=== PATIENT | male | born 1985 ===

== ENCOUNTER 2021-07-09 17:59 | Emergency (ER) | payer MEDICARE, MEDICAID, SELFPAY ==
[2021-07-09 18:46] VITALS: BP 113/51; PULSE 70; RESP 16; TEMP 36.6; O2SAT 99; BMI 38.0
--- NOTE | 2021-07-09 19:18 | ED_ITS ---
HPI - Skin/Abscess/Foreign Bdy General Chief complaint: Skin/Abscess/Foreign Body Stated complaint: abcess? Time Seen by Provider: 07/09/21 19:18 Source: patient Mode of arrival: ambulatory Limitations: language barrier History of Present Illness HPI narrative: 36-year-old male presents for abscess in his anterior waistline that he has had for months, but now is growing larger. Patient says for months he has been squeezing it and expressing pus. Patient states it has recently gotten very painful. No fevers, no vomiting, no nausea. States he often has abscesses. Patient is up-to-date on his tetanus. Patient has Sulfa allergy. MD complaint: abscess/boil Onset (ago): month(s) Tetanus up to date: yes Severity: moderate Severity scale (1-10): 6 Quality: aching Pain Consistency: constant Relieving factors: none Exacerbating factors: none Associated symptoms: denies other symptoms Related Data Previous Rx's Medication Instructions Recorded doxycycline hyclate 100 mg capsule 100 mg PO BID 10 Days #20 cap 07/09/21 Allergies Allergy/AdvReac Type Severity Reaction Status Date / Time Sulfa (Sulfonamide Allergy Severe SWELLING, Unverified 08/04/20 17:15 Antibiotics) skin [SULFA (SULFONAMIDE blisters ANTIBIOTICS)] Review of Systems Constitutional: Constitutional: Denies body ache(s), Denies chills, Denies fever(s), Denies headache(s) and Denies malaise ENT: Denies otalgia, Denies headache(s) and Denies sore throat Cardiovascular: Cardiovascular: Denies chest pain and Denies dyspnea Respiratory: Respiratory: Denies chest congestion, Denies cough and Denies dyspnea Gastrointestinal: Gastrointestinal: Denies abdominal pain, Denies constipation, Denies diarrhea and Denies vomiting Genitourinary: Genitourinary: Reports no additional male genitourinary complaints Musculoskeletal: Musculoskeletal: Reports no additional musculoskeletal complaints, Denies numbness and Denies tingling Integumentary/Breasts: Comments: Have some posterior anterior waistline Neurologic: Denies headache(s), Denies focal weakness, Denies numbness, Denies tingling and Denies paresthesias PMFSH Past Medical History Medical History Anxiety Depression Social History Social History Advance Directives: No Physical Exam Vital Signs: Vital Signs: Last Vital Signs Temp 98 F 07/09/21 18:46 Pulse 70 07/09/21 18:46 Resp 16 07/09/21 18:46 BP 113/51 L 07/09/21 18:46 Pulse Ox 99 07/09/21 18:46 Body Mass Index 38.0 Const: General: cooperative, no acute distress, well developed, alert and awake Nutritional Appearance: well nourished Orientation/consciousness: patient oriented x3 Limitations: no limitations HENMT: Head: Yes normal to inspection, Yes normocephalic and Yes atraumatic Ears: hearing grossly normal bilaterally and external ears normal General nose exam: Normal external nose present Face and sinus: Yes normal facial exam Mouth: Normal oral and palatal mucosa present Throat: Yes posterior oropharynx normal Eyes: Conjunctivae: conjunctivae normal Pupils: Equal, round and reactive pupils present EOM: EOMs intact bilaterally Neck: Neck: Yes full ROM, Yes no lymphadenopathy and Yes supple Resp: Effort & Inspection: normal respiratory effort and able to speak in complete sentences Auscultation: clear to auscultation bilaterally, no crackles, no rales, no rhonchi and no wheezes Cardio: Rate: regular rate Rhythm: regular rhythm Heart sounds: S1 normal heart sound present and S2 normal heart sound present GI: Inspection: Yes normal to inspection Palpation (GI): Soft to palpation, nontender, no guarding and not rigid Percussion: Yes normal to percussion Auscultation: normal bowel sounds Skin: Other: 3 cm abscess with fluctuance and surrounding erythema on patient's mid line belt region. Drained abscess, did incision and drainage, packed abscess, place patient on doxycycline. Gave return precautions, aspiration to return in 2 days for follow-up care. Neuro: General: patient oriented x3, tone normal and moves all extremities Cranial nerves: Yes Equal, round and reactive pupils present Extrem: General: Yes normal to inspection and Yes full ROM Psych: Appearance: grossly normal Affect: normal affect Attitude: cooperative Thought process: Normal thought process present Procedures Abscess I/D Site: other Local Anesthetic: lidocaine 1% Amount of anesthesia used (mL): 2 Technique: incised with blade Amount of fluid expressed (mL): 5 Sent for culture/gram staining?: No Irrigation: No Packing used?: iodoform Discharge Plan Discharge Clinical Impression: Abscess of skin or subcutaneous tissue Qualifiers: Site of cutaneous abscess: other site Qualified Code(s): L02.818 - Cutaneous abscess of other sites Patient Disposition: Home, Self-Care Instructions: Abscess (ED) Additional Instructions: Please return to the emergency room in 2 days to have your abscess checked. Please leave the dressing on and keep it clean and dry until then. If there is fevers, warmth, worsening pain, please return to the Emergency Room sooner. Please fill your prescription for doxycycline that I sent to your pharmacy and start it tonight. Please alternate Tylenol and ibuprofen for pain. Take 1 or the other every 4 hours. For example, at midnight take 1000 mg of Tylenol, then at 4:00 a.m. take 800 mg ibuprofen, at 8:00 a.m. take 1000 mg of Tylenol, at noon take 800 mg of ibuprofen, at 4:00 p.m. take 1000 mg of Tylenol, at 8:00 p.m. take 800 mg of ibuprofen. Do not exceed 3000 mg of Tylenol in 24 hours. This method is proven to be as effective as an opioid for pain control. Regrese a la david de emergencias en 2 d?as para que le revisen el absceso. Por favor, deje el ap?sito y mant?ngalo limpio y seco hasta entonces. Si tiene fiebre, calor o dolor que empeora, regrese a la david de emergencias antes. Surta churchill receta de doxiciclina que le envi? a churchill farmacia y comience esta noche. Alterne Tylenol e ibuprofeno para el dolor. Nael 1 o el otro cada 4 horas. Por ejemplo, a la medianoche tome 1000 mg de Tylenol, luego a las 4:00 a.m. tome 800 mg de ibuprofeno, a las 8:00 a.m. tome 1000 mg de Tylenol, al mediod?a tome 800 mg de ibuprofeno, a las 4:00 p.m. nael 1000 mg de Tylenol, a las 8:00 p.m. tome 800 mg de ibuprofeno. No exceda los 3000 mg de Tylenol en 24 horas. Se chavira demostrado que connie m?todo es hernandez eficaz lyndsey un opioide para el control del dolor. Prescriptions: New doxycycline hyclate 100 mg capsule 100 mg PO BID 10 Days Qty: 20 RF: 0 Interventions: ED Discharge Assessment Last Done: 07/09/21 20:18 Discharge Date/Time: 07/09/21 20:19 Print Language: Mauritanian
[2021-07-09] MEDS: Lidocaine HCl 1 % 20 ML VIAL 10 ML INFILTRATI (20:15)
== END 2021-07-09 20:19 | disposition home or self-care (01) ==
PROVIDERS: Emergency Provider Internal Medicine
DX: L02.818 Cutaneous abscess of other sites (principal); Z79.899 Other long term (current) drug therapy
CPT/HCPCS: 10060; 99283

== ENCOUNTER 2021-07-11 09:39 | Emergency (ER) | payer MEDICARE, MEDICAID, SELFPAY ==
[2021-07-11 11:48] VITALS: BP 108/72; PULSE 64; RESP 16; TEMP 36.7; O2SAT 96; BMI 34.9
--- NOTE | 2021-07-11 13:48 | ED.WOUNDLAC ---
HPI - Wound/Laceration General Chief Complaint: Wound/Laceration Stated Complaint: wound check Time Seen by Provider: 07/11/21 13:43 History of Present Illness HPI narrative: Improved denies any fever chills Complaint feels ominal abscess, patient without Related Data Previous Rx's Medication Instructions Recorded doxycycline hyclate 100 mg capsule 100 mg PO BID 10 Days #20 cap 07/09/21 Allergies Allergy/AdvReac Type Severity Reaction Status Date / Time Sulfa (Sulfonamide Allergy Severe SWELLING, Unverified 08/04/20 17:15 Antibiotics) skin [SULFA (SULFONAMIDE blisters ANTIBIOTICS)] Review of Systems Review of Systems: Negatives are no fever no chills no dizziness no weakness no headache no neck pain no chest pain no abdominal pain no nausea or vomiting Yes all other systems are reviewed and are negative [facility] Past Medical History Medical History Anxiety Depression Social History Social History Advance Directives: Yes Advance Directives Information Provided: Yes Advance Directives on File: No Physical Exam Vital Signs: Vital Signs: Last Vital Signs Temp 98.1 F 07/11/21 11:48 Pulse 64 07/11/21 11:48 Resp 16 07/11/21 11:48 BP 108/72 07/11/21 11:48 Pulse Ox 96 07/11/21 11:48 Body Mass Index 34.9 Course Course Course Narrative: Patient status post I and D of abdominal abscess, packing was removed, no evidence of surrounding infection, he is very improved there was no fluctuance and patient is discharged Discharge Plan Discharge Clinical Impression: Wound check, abscess Patient Disposition: Home, Self-Care Additional Instructions: The wound looks very improved and no further treatment is needed It may continue draining so keep covered with a dressing Return any concerns Prescriptions: No Action doxycycline hyclate 100 mg capsule 100 mg PO BID 10 Days Qty: 20 RF: 0 Interventions: ED Discharge Assessment Last Done: 07/11/21 13:54 Discharge Date/Time: 07/11/21 15:32
== END 2021-07-11 15:32 | disposition home or self-care (01) ==
PROVIDERS: Emergency Provider Emergency Medicine
DX: Z48.01 Encounter for change or removal of surgical wound dressing (principal); L02.818 Cutaneous abscess of other sites
CPT/HCPCS: 99283

== ENCOUNTER 2021-09-08 18:43 | Emergency (ER) | payer MEDICARE, MEDICAID, SELFPAY ==
--- NOTE | ~2021-09-08 | XR_ITS ---
EXAMINATION: XR CHEST CLINICAL INFORMATION: Chest pain COMPARISON: Chest x-ray on 05/23/2019 TECHNIQUE: Frontal view of the chest was obtained. FINDINGS: The cardiac silhouette is normal. There is mild diffuse bronchial wall thickening. There are no areas of consolidation. There are no pleural effusions or pneumothoraces. The bones and soft tissues are unremarkable for the patient's age. XR/XR chest 1V IMPRESSION: Bronchial wall thickening may be infectious and/or inflammatory in etiology.
--- NOTE | 2021-09-08 18:58 | ECG_ITS ---
Test Reason : cp Blood Pressure : / mmHG Vent. Rate : 068 BPM Atrial Rate : 068 BPM P-R Int : 122 ms QRS Dur : 088 ms QT Int : 376 ms P-R-T Axes : 058 -09 031 degrees QTc Int : 399 ms Normal sinus rhythm Normal ECG No significant changes seen Referred By: Generic ED Physician Electronically Signed By:JOSE LUIS ELLIS MD
[2021-09-08 19:01] VITALS: BP 117/79; PULSE 75; RESP 20; TEMP 37.3; O2SAT 97; BMI 39.5
[2021-09-08 19:42] LABS: MANUAL DIFF FLAG NO
[2021-09-08 19:46] LABS: Basophils Absolute Auto 0.1 X10*3/uL (0.0-0.2); Basophils Percent Auto 0.3 % (0-2); Eosinophils Absolute Auto 0.2 X10*3/uL (0.0-0.4); Eosinophils Percent Auto 1.6 % (0-4); Hematocrit 49.5 % (42-52); Hemoglobin 16.6 g/dl (14.0-18.0); Imm Gran Abs Auto 0.04 X10*3/uL (0.00-0.03); Imm Gran Pct Auto 0.3 % (0.0-0.4); Lymphocytes Absolute Auto 2.9 X10*3/uL (1.2-4.9); Lymphocytes Percent Auto 19.6 % (20-40); Mean Corpuscular HGB Conc 33.5 g/dl (31.0-36.0); Mean Corpuscular Hemoglobin 29.3 pg (27.0-33.0); Mean Corpuscular Volume 87.3 fL (80-98); Mean Platelet Volume 10.5 fL (9.4-12.4); Monocytes Absolute Auto 0.7 X10*3/uL (0.1-1.2); Monocytes Percent Auto 4.9 % (2-11); Neutrophils Absolute Auto 10.7 X10*3/uL (2.0-8.3); Neutrophils Percent Auto 73.3 % (45-73); Platelet Count 239 X10*3/uL (160-400); Red Blood Count 5.67 X10*6/uL (4.60-5.80); Red Cell Distribution Width 13.9 % (11.0-16.0); White Blood Count 14.6 X10*3/uL (4.8-10.8)
[2021-09-08 20:01] LABS: Anion Gap 12 (12-20); Blood Urea Nitrogen 8 mg/dL (9-16); Calcium 8.8 mg/dL (8.4-10.2); Carbon Dioxide 25 mmol/L (22-29); Chloride 108 mmol/L (96-108); Creatinine Clr Calc Pharmacy 121.3; Estimated Glomerular Filt Rate > 60; Glucose Random 154 mg/dL (60-115); Potassium 3.9 mmol/L (3.3-5.1); Sodium 141 mmol/L (135-145)
[2021-09-08 20:08] LABS: Troponin-I High Sensitivity < 3.5 ng/L (<3.5-35.0)
--- NOTE | 2021-09-08 21:32 | ED_ITS ---
HPI - Chest Pain General Chief Complaint: Chest Pain Stated Complaint: Chest Pain Time Seen by Provider: 09/08/21 21:06 Source: patient Mode of arrival: ambulatory Limitations: no limitations History of Present Illness HPI narrative: Patient comes emergency room complaining sharp chest pain substernal. Patient states it has been present for 2 days, sometimes has mild shortness of breath intermittently. At this time patient still feels some pressure in the chest. Note, patient mentioned that 2 days ago he got drunk, had multiple episodes of vomiting, patient is grieving the recent of his grandmother. Related Data Previous Rx's Medication Instructions Recorded doxycycline hyclate 100 mg capsule 100 mg PO BID 10 Days #20 cap 07/09/21 Allergies Allergy/AdvReac Type Severity Reaction Status Date / Time Sulfa (Sulfonamide Allergy Severe SWELLING, Unverified 09/08/21 19:07 Antibiotics) skin [SULFA (SULFONAMIDE blisters ANTIBIOTICS)] Review of Systems Review of Systems: Constitutional : No Weight loss, No Fever, No Chills, No Night Sweats, No Fatigue, No Malaise ENT/Mouth : No Hearing loss, No Ear Pain, No Nasal Congestion, No Sinus Pain, No Hoarseness, No sore throat, No Rhinorrhea, No Swallowing Difficulty Eyes: No Eye Pain, No Swelling, No Redness, No Foreign Body, No Discharge, No Vision Changes Cardiovascular : Complaining of 2 days of chest pressure , No Dyspnea on Exertion, No Orthopnea, No Edema, No Palpitations Respiratory : Dry Cough, No Sputum, No Wheezing, No Smoke Exposure, intermittent shortness of breath, not present at this time Gastrointestinal : No Nausea, No Vomiting, No Diarrhea, No Constipation, No abdominal Pain, No Hematochezia, No Melena Genitourinary : no irregular bleeding, No Dysuria, No Urinary Frequency, No Hematuria, No Urinary Incontinence, No Urgency, No Flank Pain, No Urinary Flow Changes, No Hesitancy Musculoskeletal : No joint pain, No Myalgias, No Joint Swelling Skin : No Skin Lesions, No rash Neuro : No Weakness, No Numbness, No Paresthesias, No Loss of Consciousness, No Dizziness, No Headache Psych : No Anxiety/Panic, No Depression, No SI/HI/AH/VH, No Social Issues, Heme/Lymph: No Bruising, No Bleeding,No Lymphadenopathy Endocrine : No Polyuria, No Polydipsia, No Temperature Intolerance PMF Past Medical History Medical History Anxiety Depression Social History Social History Advance Directives: No Advance Directives Information Provided: No Physical Exam Vital Signs: Vital Signs: Last Vital Signs Temp 98.7 F 09/08/21 22:05 Pulse 55 09/08/21 22:05 Resp 18 09/08/21 22:05 BP 105/59 L 09/08/21 22:05 Pulse Ox 97 09/08/21 22:05 Body Mass Index 39.5 Const: Other: Appearance: Alert. Oriented X3. No acute distress. Eyes: Pupils equal, round and reactive to light. ENT: Pharynx normal. Neck: Normal inspection. Neck supple. No lymph nodes noted. No crepitus CVS: Normal heart rate and rhythm. Pulses normal. Normal S1 and S2 Respiratory: No respiratory distress. Breath sounds normal. No Wheezing. No rales Abdomen: Soft and nontender. No rigidity. No distention. Skin: Skin warm and dry. Normal skin color. Normal skin turgor. Extremities: No lower extremity edema. No lower extremity edema. No Lacerations. No Rash Neuro: Oriented X 3. No motor deficit. No sensory deficit. Moving all extermities. No slurred speech. Course Course Course Narrative: I discussed the labs and imaging with the patient, patient's chest pressure/breathing discomfort is likely secondary to bronchitis, patient has been coughing, chest x-ray shows bronchial wall thickening. Patient has not had any fever, no chills, patient is not septic. At this time, antibiotics are not recommended. Pt has also hx of anxiety, likely contributing to the chest pain. MDM - Chest Pain Lab Data Result diagrams: 09/08/21 19:38 09/08/21 19:38 Labs: Lab Results 09/08/21 09/08/21 09/08/21 Range/Units 19:37 19:38 19:38 WBC 14.6 H (4.8-10.8) X10*3/uL RBC 5.67 (4.60-5.80) X10*6/uL Hgb 16.6 (14.0-18.0) g/dl Hct 49.5 (42-52) % MCV 87.3 (80-98) fL MCH 29.3 (27.0-33.0) pg MCHC 33.5 (31.0-36.0) g/dl RDW 13.9 (11.0-16.0) % Plt Count 239 (160-400) X10*3/uL MPV 10.5 (9.4-12.4) fL Immature Gran % (Auto) 0.3 (0.0-0.4) % Neut % (Auto) 73.3 H (45-73) % Lymph % (Auto) 19.6 L (20-40) % [place] % (Auto) 4.9 (2-11) % Eos % (Auto) 1.6 (0-4) % Baso % (Auto) 0.3 (0-2) % Lymph # (Auto) 2.9 (1.2-4.9) X10*3/uL [place] # (Auto) 0.7 (0.1-1.2) X10*3/uL Eos # (Auto) 0.2 (0.0-0.4) X10*3/uL Baso # (Auto) 0.1 (0.0-0.2) X10*3/uL Abs Immat Gran (auto) 0.04 H (0.00-0.03) X10*3/uL Absolute Neuts (auto) 10.7 H (2.0-8.3) X10*3/uL Absolute Nucleated RBC 0.000 (0.0-0.012) X10*3/uL Nucleated RBC % (auto) 0.0 (0.0-0.2) /100WBC D-Dimer NG/ML Sodium 141 (135-145) mmol/L Potassium 3.9 (3.3-5.1) mmol/L Chloride 108 (96-108) mmol/L Carbon Dioxide 25 (22-29) mmol/L Anion Gap 12 (12-20) BUN 8 L (9-16) mg/dL Creatinine 1.06 (0.5-1.4) mg/dL Estim Creat Clear Calc 121.3 Estimated GFR > 60 Random Glucose 154 H (60-115) mg/dL Calcium 8.8 (8.4-10.2) mg/dL Troponin I High Sens < 3.5 (<3.5-35.0) ng/L 09/08/21 Range/Units 21:34 WBC (4.8-10.8) X10*3/uL RBC (4.60-5.80) X10*6/uL Hgb (14.0-18.0) g/dl Hct (42-52) % MCV (80-98) fL MCH (27.0-33.0) pg MCHC (31.0-36.0) g/dl RDW (11.0-16.0) % Plt Count (160-400) X10*3/uL MPV (9.4-12.4) fL Immature Gran % (Auto) (0.0-0.4) % Neut % (Auto) (45-73) % Lymph % (Auto) (20-40) % [place] % (Auto) (2-11) % Eos % (Auto) (0-4) % Baso % (Auto) (0-2) % Lymph # (Auto) (1.2-4.9) X10*3/uL [place] # (Auto) (0.1-1.2) X10*3/uL Eos # (Auto) (0.0-0.4) X10*3/uL Baso # (Auto) (0.0-0.2) X10*3/uL Abs Immat Gran (auto) (0.00-0.03) X10*3/uL Absolute Neuts (auto) (2.0-8.3) X10*3/uL Absolute Nucleated RBC (0.0-0.012) X10*3/uL Nucleated RBC % (auto) (0.0-0.2) /100WBC D-Dimer < 200 NG/ML Sodium (135-145) mmol/L Potassium (3.3-5.1) mmol/L Chloride (96-108) mmol/L Carbon Dioxide (22-29) mmol/L Anion Gap (12-20) BUN (9-16) mg/dL Creatinine (0.5-1.4) mg/dL Estim Creat Clear Calc Estimated GFR Random Glucose (60-115) mg/dL Calcium (8.4-10.2) mg/dL Troponin I High Sens (<3.5-35.0) ng/L Imaging Data Chest x-ray: Radiologist's impression: The cardiac silhouette is normal. There is mild diffuse bronchial wall thickening. There are no areas of consolidation. There are no pleural effusions or pneumothoraces. The bones and soft tissues are unremarkable for the patient's age. XR/XR chest 1V IMPRESSION: Bronchial wall thickening may be infectious and/or inflammatory in etiology. ECG Data ECG #1: Attestation: I personally reviewed and interpreted this ECG as follows: (Heart rate 68, sinus rhythm, no ST segment depression or elevation, nonspecific T-wave inversion in lead 3, QTC 399) Discharge Plan Discharge Clinical Impression: Bronchitis, Atypical chest pain Patient Disposition: Home, Self-Care Instructions: Acute Bronchitis (ED) Additional Instructions: Please follow-up with your primary care physician tomorrow. If you have any worsening or new symptoms, please return to the emergency room or call 911 Prescriptions: No Action doxycycline hyclate 100 mg capsule 100 mg PO BID 10 Days Qty: 20 RF: 0
--- NOTE | 2021-09-08 21:42 | PC.NURSE ---
labs drawn to lab.
[2021-09-08 21:55] LABS: D Dimer < 200 NG/ML
[2021-09-08 22:05] VITALS: BP 105/59; PULSE 55; RESP 18; TEMP 37.1; O2SAT 97
[2021-09-08] MEDS: Aspirin Enteric Coated 325 MG TABLET.DR PO (22:21)
== END 2021-09-08 22:27 | disposition home or self-care (01) ==
PROVIDERS: Emergency Provider Emergency Medicine
DX: J40 Bronchitis, not specified as acute or chronic (principal); R07.89 Other chest pain; Z79.899 Other long term (current) drug therapy
CPT/HCPCS: 36415; 71045; 80048; 84484; 85025; 85379; 93005; 99284

== ENCOUNTER 2022-05-05 17:48 | Emergency (ER) | payer MEDICARE, MEDICAID, SELFPAY ==
--- NOTE | ~2022-05-05 | XR_ITS ---
EXAMINATION: XR CHEST CLINICAL INFORMATION: Fever. COMPARISON: Chest radiograph dated from 09/08/2021. TECHNIQUE: AP view of the chest was obtained. FINDINGS: Normal appearance of the cardiomediastinal silhouette. No focal airspace opacity, pleural effusion or pneumothorax. No acute osseous abnormalities. XR/XR chest 1V IMPRESSION: No acute cardiopulmonary findings.
[2022-05-05 18:40] VITALS: BP 122/57; PULSE 105; RESP 20; TEMP 39.3; O2SAT 99; BMI 34.9
--- NOTE | 2022-05-05 19:19 | ED_ITS ---
HPI - General Adult General Chief complaint: General Medical Stated complaint: headaches/dizzines/fever Time Seen by Provider: 05/05/22 19:12 Source: patient Mode of arrival: ambulatory Limitations: no limitations History of Present Illness HPI narrative: Patient comes to the emergency room complaining of nausea, no vomiting, complaining of diffuse body aches, fever and chills. Patient states that today in the morning he was feeling normal. Around noon, he had a sandwich, 6 hours later he started having nausea, generalized malaise, chills. Patient took a shower hoping that his symptoms would resolve. Patient started having more chills. Patient did not take any Tylenol ibuprofen prior to arrival. Patient decided to come to the emergency room. Patient states that 3 weeks ago he was diagnosed with COVID-19. Patient did not get immunized for influenza last year Related Data Previous Rx's Medication Instructions Recorded doxycycline hyclate 100 mg capsule 100 mg PO BID 10 days #20 caps 07/09/21 acetaminophen 650 mg 650 mg PO Q8H PRN fever or pain 05/05/22 tablet,extended release #20 tabs ibuprofen 600 mg tablet 600 mg PO QID PRN fever or pain 05/05/22 #20 tabs Allergies Allergy/AdvReac Type Severity Reaction Status Date / Time Sulfa (Sulfonamide Allergy Severe SWELLING, Verified 05/05/22 18:42 Antibiotics) skin [SULFA (SULFONAMIDE blisters ANTIBIOTICS)] Review of Systems Review of Systems: Constitutional : No Weight loss, complaining of fever and Chills, complaining of generalized malaise, diffuse body aches ENT/Mouth : No Hearing loss, No Ear Pain, No Nasal Congestion, No Sinus Pain, No Hoarseness, No sore throat, No Rhinorrhea, No Swallowing Difficulty Eyes: No Eye Pain, No Swelling, No Redness, No Foreign Body, No Discharge, No Vision Changes Cardiovascular : No Chest Pain, No SOB, No Dyspnea on Exertion, No Orthopnea, No Edema, No Palpitations Respiratory : No Cough, No Sputum, No Wheezing, No Smoke Exposure, No Dyspnea Gastrointestinal : Complaining of Nausea, No Vomiting, No Diarrhea, No Constipation, No abdominal Pain, No Hematochezia, No Melena Genitourinary : no irregular bleeding, No Dysuria, No Urinary Frequency, No Hematuria, No Urinary Incontinence, No Urgency, No Flank Pain, No Urinary Flow Changes, No Hesitancy Musculoskeletal : No joint pain, No Myalgias, No Joint Swelling Skin : No Skin Lesions, No rash Neuro : No Weakness, No Numbness, No Paresthesias, No Loss of Consciousness, No Dizziness, No Headache Psych : No Anxiety/Panic, No Depression, No SI/HI/AH/VH, No Social Issues, Heme/Lymph: No Bruising, No Bleeding,No Lymphadenopathy Endocrine : No Polyuria, No Polydipsia, No Temperature Intolerance [facility] Past Medical History Medical History Anxiety Depression Social History Social History Advance Directives: No Advance Directives Information Provided: No Physical Exam ED Vital Signs: Vital Signs - 24 hr 05/05/22 18:40 05/05/22 20:35 Temperature 102.7 F H 101.4 F H Pulse Rate 105 H Respiratory Rate 20 Blood Pressure 122/57 L Pulse Oximetry 99 Oxygen Delivery Method Room Air BMI result Body Mass Index 34.9 Const Other: Appearance: Alert. Oriented X3. No acute distress. Eyes: Pupils equal, round and reactive to light. ENT: Pharynx normal. Neck: Normal inspection. Neck supple. No lymph nodes noted. No crepitus CVS: Tachycardic approximately 110 per minute and rhythm. Pulses normal. Normal S1 and S2 Respiratory: No respiratory distress. Breath sounds normal. No Wheezing. No rales Abdomen: Soft and nontender. No rigidity. No distention. Skin: Skin very warm to touch, dry. Normal skin color. Normal skin turgor. Extremities: No lower extremity edema. No Lacerations. No Rash Neuro: Oriented X 3. No motor deficit. No sensory deficit. Moving all extremities. No slurred speech. CN 2 through 12 grossly intact Psych: calm, cooperative, normal affect Course Course Course Narrative: Patient is getting fluids, labs pending, patient receiving IV fluids, ibuprofen, Tylenol, Zofran Chest x-ray negative, COVID and flu tests pending Patient tested negative for COVID and influenza, urinalysis negative, chest x- ray within normal limits. Patient likely has a viral infection. Patient has not vomited or had any diarrhea in the emergency room. Medical Decision Making Lab Data Result diagrams: 05/05/22 19:38 05/05/22 19:38 Labs: Lab Results 05/05/22 05/05/22 05/05/22 Range/Units 19:38 19:38 19:38 WBC 17.4 H (4.8-10.8) X10*3/uL RBC 5.63 (4.60-5.80) X10*6/uL Hgb 16.2 (14.0-18.0) g/dl Hct 48.3 (42.0-52.0) % MCV 85.8 (80.0-98.0) fL MCH 28.8 (27.0-33.0) pg MCHC 33.5 (31.0-36.0) g/dl RDW 13.1 (11.0-16.0) % Plt Count 256 (160-400) X10*3/uL MPV 10.2 (9.4-12.4) fL Immature Gran % (Auto) 0.5 H (0.0-0.4) % Neut % (Auto) 89.7 H (45-73) % Lymph % (Auto) 5.3 L (20-40) % Levy % (Auto) 3.7 (2-11) % Eos % (Auto) 0.5 (0-4) % Baso % (Auto) 0.3 (0-2) % Lymph # (Auto) 0.9 L (1.2-4.9) X10*3/uL Levy # (Auto) 0.6 (0.1-1.2) X10*3/uL Eos # (Auto) 0.1 (0.0-0.4) X10*3/uL Baso # (Auto) 0.1 (0.0-0.2) X10*3/uL Abs Immat Gran (auto) 0.08 H (0.00-0.03) X10*3/uL Absolute Neuts (auto) 15.6 H (2.0-8.3) x10*3/uL Absolute Nucleated RBC 0.000 (0.0-0.012) X10*3/uL Nucleated RBC % (auto) 0.0 (0.0-0.2) /100WBC Sodium 137 (135-145) mmol/L Potassium 3.8 (3.3-5.1) mmol/L Chloride 104 (96-108) mmol/L Carbon Dioxide 26 (22-29) mmol/L Anion Gap 11 L (12-20) BUN 9 (9-16) mg/dL Creatinine 0.95 (0.5-1.4) mg/dL Estim Creat Clear Calc 127.0 Estimated GFR > 60 Random Glucose 120 H (60-115) mg/dL Lactic Acid (0.5-2.0) mmol/L Calcium 9.1 (8.4-10.2) mg/dL Total Bilirubin 0.5 (0.0-1.0) mg/dL Direct Bilirubin 0.2 (0.0-0.5) mg/dL AST 37 (5-37) U/L ALT 64 H (0-40) U/L Alkaline Phosphatase 79 (39-117) U/L Total Protein 7.9 (6.5-8.0) g/dL Albumin 4.1 (3.5-5.0) g/dL Urine Color Urine Appearance Urine pH (5.0-8.0) Ur Specific [place] (1.005-1.025) Urine Protein (NEG-TRACE) MG/DL Urine Glucose (UA) (NEG) MG/DL Urine Ketones (NEG) MG/DL Urine Blood (NEG) Urine Nitrite (NEG) Ur Leukocyte Esterase (NEG) Urine RBC (0) /HPF Urine WBC (0-4) /HPF Ur Squamous Epith Cells /LPF Urine Bacteria /LPF COVID-19 (RAJIV) (Negative) COVID-19 Clin Com Influenza Type A (CORAL) Negative (Negative) Influenza Type B (CORAL) Negative (Negative) Influenza A & B Note See Note 05/05/22 05/05/22 05/05/22 Range/Units 19:38 19:38 21:27 WBC (4.8-10.8) X10*3/uL RBC (4.60-5.80) X10*6/uL Hgb (14.0-18.0) g/dl Hct (42.0-52.0) % MCV (80.0-98.0) fL MCH (27.0-33.0) pg MCHC (31.0-36.0) g/dl RDW (11.0-16.0) % Plt Count (160-400) X10*3/uL MPV (9.4-12.4) fL Immature Gran % (Auto) (0.0-0.4) % Neut % (Auto) (45-73) % Lymph % (Auto) (20-40) % Levy % (Auto) (2-11) % Eos % (Auto) (0-4) % Baso % (Auto) (0-2) % Lymph # (Auto) (1.2-4.9) X10*3/uL Levy # (Auto) (0.1-1.2) X10*3/uL Eos # (Auto) (0.0-0.4) X10*3/uL Baso # (Auto) (0.0-0.2) X10*3/uL Abs Immat Gran (auto) (0.00-0.03) X10*3/uL Absolute Neuts (auto) (2.0-8.3) x10*3/uL Absolute Nucleated RBC (0.0-0.012) X10*3/uL Nucleated RBC % (auto) (0.0-0.2) /100WBC Sodium (135-145) mmol/L Potassium (3.3-5.1) mmol/L Chloride (96-108) mmol/L Carbon Dioxide (22-29) mmol/L Anion Gap (12-20) BUN (9-16) mg/dL Creatinine (0.5-1.4) mg/dL Estim Creat Clear Calc Estimated GFR Random Glucose (60-115) mg/dL Lactic Acid 1.9 (0.5-2.0) mmol/L Calcium (8.4-10.2) mg/dL Total Bilirubin (0.0-1.0) mg/dL Direct Bilirubin (0.0-0.5) mg/dL AST (5-37) U/L ALT (0-40) U/L Alkaline Phosphatase (39-117) U/L Total Protein (6.5-8.0) g/dL Albumin (3.5-5.0) g/dL Urine Color STRAW Urine Appearance CLEAR Urine pH 6.5 (5.0-8.0) Ur Specific [place] <= 1.005 (1.005-1.025) Urine Protein NEG (NEG-TRACE) MG/DL Urine Glucose (UA) NEG (NEG) MG/DL Urine Ketones NEG (NEG) MG/DL Urine Blood TRACE (NEG) Urine Nitrite NEG (NEG) Ur Leukocyte Esterase NEG (NEG) Urine RBC 0-2 (0) /HPF Urine WBC 0 (0-4) /HPF Ur Squamous Epith Cells TRACE /LPF Urine Bacteria NONE /LPF COVID-19 (RAJIV) Negative (Negative) COVID-19 Clin Com See Note Influenza Type A (CORAL) (Negative) Influenza Type B (CORAL) (Negative) Influenza A & B Note Imaging Data Chest x-ray: Radiologist's impression: COMPARISON: Chest radiograph dated from 09/08/2021. TECHNIQUE: AP view of the chest was obtained. FINDINGS: Normal appearance of the cardiomediastinal silhouette. No focal airspace opacity, pleural effusion or pneumothorax. No acute osseous abnormalities. XR/XR chest 1V IMPRESSION: No acute cardiopulmonary findings. Discharge Plan Discharge Clinical Impression: Viral illness Patient Disposition: Home, Self-Care Instructions: Viral Syndrome (ED) Additional Instructions: Please follow-up with your primary care physician tomorrow. If you have any worsening or new symptoms, please return to the emergency room or call 911 Prescriptions: New ibuprofen 600 mg tablet 600 mg PO QID PRN (Reason: fever or pain) Qty: 20 0RF acetaminophen 650 mg tablet extended release 650 mg PO Q8H PRN (Reason: fever or pain) Qty: 20 0RF Rx Instructions: Alternate doses with ibuprofen No Action doxycycline hyclate 100 mg capsule 100 mg PO BID 10 Days Qty: 20 0RF
[2022-05-05] MEDS: 0.9 % Sodium Chloride 1,000 ML 999 ML IVCONT (19:50)
[2022-05-05] MEDS: ondansetron HCL 4 MG/2 ML VIAL IVPUSH (19:50)
[2022-05-05] MEDS: Acetaminophen 325 MG TABLET 975 MG PO (19:50)
[2022-05-05] MEDS: Ibuprofen 600 MG TABLET PO (19:50)
[2022-05-05 19:54] LABS: MANUAL DIFF FLAG NO
[2022-05-05 19:55] LABS: Basophils Absolute Auto 0.1 X10*3/uL (0.0-0.2); Basophils Percent Auto 0.3 % (0-2); Eosinophils Absolute Auto 0.1 X10*3/uL (0.0-0.4); Eosinophils Percent Auto 0.5 % (0-4); Hematocrit 48.3 % (42.0-52.0); Hemoglobin 16.2 g/dl (14.0-18.0); Imm Gran Abs Auto 0.08 X10*3/uL (0.00-0.03); Imm Gran Pct Auto 0.5 % (0.0-0.4); Lymphocytes Absolute Auto 0.9 X10*3/uL (1.2-4.9); Lymphocytes Percent Auto 5.3 % (20-40); Mean Corpuscular HGB Conc 33.5 g/dl (31.0-36.0); Mean Corpuscular Hemoglobin 28.8 pg (27.0-33.0); Mean Corpuscular Volume 85.8 fL (80.0-98.0); Mean Platelet Volume 10.2 fL (9.4-12.4); Monocytes Absolute Auto 0.6 X10*3/uL (0.1-1.2); Monocytes Percent Auto 3.7 % (2-11); Neutrophils Absolute Auto 15.6 x10*3/uL (2.0-8.3); Neutrophils Percent Auto 89.7 % (45-73); Platelet Count 256 X10*3/uL (160-400); Red Blood Count 5.63 X10*6/uL (4.60-5.80); Red Cell Distribution Width 13.1 % (11.0-16.0); White Blood Count 17.4 X10*3/uL (4.8-10.8)
[2022-05-05 20:04] LABS: Lactic Acid 1.9 mmol/L (0.5-2.0)
[2022-05-05 20:09] LABS: Alanine Aminotransferase 64 U/L (0-40); Albumin Level 4.1 g/dL (3.5-5.0); Alkaline Phosphatase 79 U/L (39-117); Anion Gap 11 (12-20); Aspartate Amino Transferase 37 U/L (5-37); Bilirubin Direct 0.2 mg/dL (0.0-0.5); Bilirubin Total 0.5 mg/dL (0.0-1.0); Blood Urea Nitrogen 9 mg/dL (9-16); Calcium 9.1 mg/dL (8.4-10.2); Carbon Dioxide 26 mmol/L (22-29); Chloride 104 mmol/L (96-108); Estimated Glomerular Filt Rate > 60; Glucose Random 120 mg/dL (60-115); Potassium 3.8 mmol/L (3.3-5.1); Sodium 137 mmol/L (135-145); Total Protein 7.9 g/dL (6.5-8.0)
[2022-05-05 20:11] LABS: COVID-19 Test Negative (Negative); IDNOW Serial# 16C4AD1C; Influenza A Negative (Negative); Influenza B2 Negative (Negative)
[2022-05-05 20:35] VITALS: TEMP 38.6
[2022-05-05] MEDS: Acetaminophen 325 MG TABLET 650 MG PO (20:44)
[2022-05-05 21:36] LABS: Appearance Urine CLEAR; Color Urine STRAW; Glucose Urine UA NEG (NEG); Leukocyte Esterase Urine NEG (NEG); Nitrite Urine NEG (NEG); PH 6.5 (5.0-8.0); Specific Gravity - Urine <= 1.005 (1.005-1.025); UACC Culture Trigger NO; Urine Blood TRACE (NEG); Urine Ketones NEG (NEG); Urine Protein NEG (NEG-TRACE)
[2022-05-05 21:46] LABS: RBC Urine 0-2 /HPF (0); Squamous Epithelial Cell Urine TRACE /LPF; WBC Urine 0 /HPF (0-4)
[2022-05-05] MEDS: SUMAtriptan succinate 50 MG TABLET PO (22:27)
== END 2022-05-05 22:29 | disposition home or self-care (01) ==
PROVIDERS: Emergency Provider Emergency Medicine
DX: B34.9 Viral infection, unspecified (principal); Z20.822 Contact with and (suspected) exposure to COVID-19; R11.2 Nausea with vomiting, unspecified; R51.9 Headache, unspecified
CPT/HCPCS: 36415; 71045; 80048; 80076; 81001; 83605; 85025; 87040; 87502; 87635; 96361; 96374; 99283; 99284; J2405

== ENCOUNTER 2022-06-26 15:14 | Emergency (ER) | payer MEDICARE, MEDICAID, SELFPAY ==
[2022-06-26 16:53] VITALS: BP 115/76; PULSE 67; RESP 18; TEMP 36.6; O2SAT 97; BMI 37.1
[2022-06-26 17:16] VITALS: BP 107/68; PULSE 58; RESP 16; TEMP 37.1; O2SAT 98
--- NOTE | 2022-06-26 18:18 | ED.GENADULT ---
HPI - General Adult General Chief complaint: Skin/Abscess/Foreign Body Stated complaint: Abscess on Buttock Time Seen by Provider: 06/26/22 17:43 Source: patient Mode of arrival: ambulatory Limitations: no limitations History of Present Illness HPI narrative: 36-year-old male presents to ED for left-sided mass on buttock that is painful for the past 3 days. Patient denies any pus drainage or foul odor. Related Data Previous Rx's Medication Instructions Recorded doxycycline hyclate 100 mg capsule 100 mg PO BID 10 days #20 caps 07/09/21 acetaminophen 650 mg 650 mg PO Q8H PRN fever or pain 05/05/22 tablet,extended release #20 tabs ibuprofen 600 mg tablet 600 mg PO QID PRN fever or pain 05/05/22 #20 tabs cephalexin 500 mg capsule 500 mg PO QID 7 days #28 caps 06/26/22 doxycycline hyclate 100 mg capsule 100 mg PO BID 7 days #14 caps 06/26/22 naproxen 500 mg tablet 500 mg PO BID PRN pain 10 days #20 06/26/22 tabs Allergies Allergy/AdvReac Type Severity Reaction Status Date / Time Sulfa (Sulfonamide Allergy Severe SWELLING, Verified 06/26/22 16:52 Antibiotics) skin [SULFA (SULFONAMIDE blisters ANTIBIOTICS)] Review of Systems Review of Systems: Left-sided buttock mass Yes all other systems are reviewed and are negative PMFSH Past Medical History Medical History Anxiety Depression Social History Social History Advance Directives: No Advance Directives Information Provided: Yes Physical Exam ED Vital Signs: Vital Signs - 24 hr 06/26/22 16:53 06/26/22 17:16 Temperature 97.9 F 98.8 F Pulse Rate 67 58 Respiratory Rate 18 16 Blood Pressure 115/76 107/68 Pulse Oximetry 97 98 Oxygen Delivery Method Room Air Room Air BMI result Body Mass Index 37.1 Const General: cooperative, healthy appearing, comfortable, no acute distress, well developed, alert, awake and Physically active Orientation/consciousness: patient oriented x3 HENMT Head: Yes normal to inspection, Yes No palpable skull fracture present, Yes normocephalic, Yes atraumatic, No abrasion, No Acrocyanosis present, No Foley's sign and No contusion Eyes General: appearance normal, both eyes and all related structures Neck Neck: Yes normal visual inspection, Yes full ROM, Yes no lymphadenopathy, Yes no meningeal signs, Yes trachea midline, Yes supple, No anterior neck swelling and No tender Chest Chest palpation & inspection: normal inspection of the chest and normal palpation of entire chest wall Resp Effort & Inspection: normal respiratory effort and able to speak in complete sentences Auscultation: clear to auscultation bilaterally Cardio Jugular venous distension: no JVD Heart sounds: S1 normal heart sound present and S2 normal heart sound present GI Inspection: Yes normal to inspection and No abdominal wall ecchymosis Palpation (GI): Soft to palpation, not firm, nontender, no guarding and not rigid General: No CVA tenderness and Yes no CVA tenderness Back/Spine/Pelvis Back: no CVA tenderness, No CVA tenderness and No back tenderness Back/spine/pelvis image: 1. Positive for warm tender mass without any fluctuance or erythema. Negative for any signs of perianal/perirectal abscess. Bedside ultrasound shows more cellulitic, cobblestone present. Very small amount of pus collection and not ready to be drained. Skin General skin exam: no rashes or lesions noted and elasticity normal Neuro General: patient oriented x3, gait normal and no meningeal signs Cranial nerves: Yes CN's II-XII intact bilaterally Extrem General: Yes normal to inspection and Yes full ROM Psych Appearance: grossly normal, well kempt and not disheveled Course Course Course Narrative: Bedside ultrasound shows more cellulitic changes. Very very small pus collection not ready to be drained. Mass is nonfluctuant. Reevaluation(s) Reevaluation #1: Diagnosis early abscess/cellulitis. Patient discharged on antibiotics and recommend warm compress 4 times a day for 15 minutes Time: 18:28 Medical Decision Making [facility] Narrative Medical decision making narrative: Early abscess/cellulitis Discharge Plan Discharge Clinical Impression: Cellulitis, Abscess of skin or subcutaneous tissue Patient Disposition: Home, Self-Care Instructions: Cellulitis (ED), Abscess (ED), Warm Compress or Soak (ED) Additional Instructions: Abscess not yet ready to be drained. Recommend warm compress 4 times a day for 15 minutes on area. He will be discharged with antibiotics. Return to the ED immediately for increased swelling, redness, opening profuse drainage, fever, chills, rectal pain,/anal pain, or any other concerning symptoms. Prescriptions: New cephalexin 500 mg capsule 500 mg PO QID 7 Days Qty: 28 0RF doxycycline hyclate 100 mg capsule 100 mg PO BID 7 Days Qty: 14 0RF naproxen 500 mg tablet 500 mg PO BID PRN (Reason: pain) 10 Days Qty: 20 0RF No Action doxycycline hyclate 100 mg capsule 100 mg PO BID 10 Days Qty: 20 0RF ibuprofen 600 mg tablet 600 mg PO QID PRN (Reason: fever or pain) Qty: 20 0RF acetaminophen 650 mg tablet extended release 650 mg PO Q8H PRN (Reason: fever or pain) Qty: 20 0RF Rx Instructions: Alternate doses with ibuprofen Stand Alone Forms: Work/School Release Interventions: ED Discharge Assessment Last Done: 06/26/22 18:57 Discharge Date/Time: 06/26/22 18:57 Print Language: Bhutanese
== END 2022-06-26 18:57 | disposition home or self-care (01) ==
PROVIDERS: Emergency Provider Emergency Medicine
DX: L03.317 Cellulitis of buttock (principal); L02.31 Cutaneous abscess of buttock
CPT/HCPCS: 99283

== ENCOUNTER 2022-08-15 01:05 | Emergency (ER) | payer MEDICARE, MEDICAID, SELFPAY ==
[2022-08-15 01:13] VITALS: BP 135/83; PULSE 61; RESP 17; TEMP 37.3; O2SAT 98; BMI 38.7
--- NOTE | 2022-08-15 03:13 | PC.NURSE ---
Patient becomes angry and expresses frustration with waiting for almost 3 hours. Phlebotomy Tech called to assist with translation. Patient states f*ck it, I'm not waiting this long and exits the emergency department. on his way out, patient is urged to follow up with his primary care physician and is also informed that he's welcome to come back to the ED to seek treatment.
== END 2022-08-15 04:49 | disposition left against medical advice (07) ==
PROVIDERS: Emergency Provider Emergency Medicine
DX: S09.90XA Unspecified injury of head, initial encounter (principal); W22.8XXA Striking against or struck by other objects, initial encounter; Y93.9 Activity, unspecified; Y92.9 Unspecified place or not applicable; Y99.9 Unspecified external cause status
CPT/HCPCS: 99281

== ENCOUNTER 2022-08-19 02:31 | Emergency (ER) | payer MEDICARE, MEDICAID, SELFPAY ==
--- NOTE | ~2022-08-19 | CT_ITS ---
EXAMINATION: CT HEAD WITHOUT CONTRAST CLINICAL INFORMATION: Head injury COMPARISON: None TECHNIQUE: Contiguous axial imaging was performed from the skull base to vertex without intravenous administration of contrast. This CT examination was performed using dose optimization techniques as appropriate, variously including the following: *Automated exposure control *Adjustment of mA and/or kV according to patient size (this includes techniques or standardized protocols for targeted exams where dose is matched to indication/reason for exam; i.e. extremities or head) *Use of iterative reconstruction technique DLP: 822 mGy-cm FINDINGS: There is no evidence of acute intracranial hemorrhage or territorial infarction. No abnormal mass effect or midline shift is seen. [place] to white matter differentiation is well preserved. No extra-axial fluid collections are identified. No hydrocephalus. No significant volume loss. There is no abnormal attenuation within the brain parenchyma. No acute osseous or soft tissue abnormality. The mastoid air cells and visualized portions of the paranasal sinuses are well aerated. CT/CT head/brain wo IV con IMPRESSION: No acute intracranial pathology.
[2022-08-19 02:34] VITALS: BP 139/87; PULSE 75; RESP 18; TEMP 37.8; O2SAT 100; BMI 36.5
[2022-08-19 03:01] VITALS: BP 120/80; PULSE 61; RESP 18; TEMP 36.8; O2SAT 100
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
== END 2022-08-19 05:44 | disposition home or self-care (01) ==
PROVIDERS: Emergency Provider Student in an Organized Health Care Education/Training Program
DX: R51.9 Headache, unspecified (principal)
CPT/HCPCS: 70450; 99284

== ENCOUNTER 2022-11-16 10:52 | Emergency (ER) | payer MEDICARE, MEDICAID, SELFPAY ==
--- NOTE | ~2022-11-16 | XR_ITS ---
EXAMINATION: XR CHEST CLINICAL INFORMATION: Fever and cough COMPARISON: Previous chest x-ray most recent April 2022 TECHNIQUE: Frontal view of the chest was obtained. FINDINGS: No significant abnormality is noted involving the heart, lungs, mediastinum, bony thorax or soft tissues. XR/XR chest 1V IMPRESSION: Unremarkable examination.
[2022-11-16 10:53] VITALS: BP 139/90; PULSE 107; RESP 18; TEMP 38.6; O2SAT 97; BMI 36.5
--- NOTE | 2022-11-16 11:12 | ED_ITS ---
HPI - URI/Sore Throat General Chief Complaint: Upper Respiratory Symptoms Stated Complaint: Flu Symptoms Time Seen by Provider: 11/16/22 11:06 Source: patient Mode of arrival: ambulatory History of Present Illness HPI Narrative: 37-year-old male with a past medical history of anxiety, depression, presenting to the ED complaining of myalgias, body aches, subjective fever, chills, nonproductive cough, chest discomfort with cough, sore throat, and diarrhea x3 days. 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 Denies shortness of breath, abdominal pain, nausea/vomiting, sick contacts, recent travel MD elicited complaint: fever, cough, sore throat, rhinorrhea and nasal congestion Onset (ago): day(s) Related Data Previous Rx's Medication Instructions Recorded doxycycline hyclate 100 mg capsule 100 mg PO BID 10 days #20 caps 07/09/ acetaminophen 650 mg 650 mg PO Q8H PRN fever or pain 05/05/22 tablet,extended release #20 tabs ibuprofen 600 mg tablet 600 mg PO QID PRN fever or pain 05/05/22 #20 tabs cephalexin 500 mg capsule 500 mg PO QID 7 days #28 caps 06/26/22 doxycycline hyclate 100 mg capsule 100 mg PO BID 7 days #14 caps 06/26/22 naproxen 500 mg tablet 500 mg PO BID PRN pain 10 days #20 06/26/22 tabs Allergies Allergy/AdvReac Type Severity Reaction Status Date / Time Sulfa (Sulfonamide Allergy Severe SWELLING, Verified 06/26/22 16:52 Antibiotics) skin [SULFA (SULFONAMIDE blisters ANTIBIOTICS)] Review of Systems Review of Systems: Constitutional: +Fever, No Chills ENT/Mouth: No Ear Pain, + Nasal Congestion, No Sinus Pain, No Hoarseness, + sore throat, + Rhinorrhea, No Swallowing Difficulty Cardiovascular: No Chest Pain, No SOB Respiratory: + Cough, No Sputum, No Wheezing Gastrointestinal: No Nausea, No Vomiting, + Diarrhea, No Constipation, No Abdominal pain Genitourinary: No Dysuria, No Urinary Frequency, No Hematuria, No Flank Pain Musculoskeletal: No joint pain, + Myalgias, No Joint Swelling Skin: No Skin Lesions, No rash Neuro: No Weakness, No Numbness, No Paresthesias Yes all other systems are reviewed and are negative Constitutional: Constitutional: Reports as per [facility] Past Medical History Attestation statement: The following information was validated with the patient. Medical History Anxiety Depression Social History Social History Advance Directives: No Advance Directives Information Provided: No Physical Exam Vital Signs: Vital Signs: Last Vital Signs Temp 98.5 F 11/16/22 12:37 Pulse 82 11/16/22 12:37 Resp 13 11/16/22 12:37 BP 126/68 11/16/22 12:37 Pulse Ox 93 11/16/22 12:37 O2 Del Method 11/16/22 12:37 BMI result Body Mass Index 36.5 Const: General: cooperative and no acute distress Orientation/consciousness: patient oriented x3 Limitations: no limitations HEENT: Head: Yes normal to inspection and Yes atraumatic Ears: hearing grossly normal bilaterally, TM's normal bilaterally and mastoids normal Gen eral nose exam: Normal external nose present Face and sinus: Yes normal facial exam Mouth: Normal oral and palatal mucosa present Throat: Yes posterior oropharynx normal, Yes tonsils normal, Yes uvula midline, No peritonsillar mass, No uvula laterally displaced and No uvular edema Eyes: General: appearance normal, both eyes and all related structures EOM: EOMs intact bilaterally Neck: Neck: Yes normal visual inspection and Yes no meningeal signs Resp: Effort & Inspection: normal respiratory effort and no respiratory distress Auscultation: clear to auscultation bilaterally, no crackles, no rales and no rhonchi Cardio: Rate: regular rate and tachycardic Heart sounds: S1 normal heart sound present and S2 normal heart sound present GI: Inspection: Yes normal to inspection Palpation (GI): Soft to palpation, not firm, nontender, no guarding and not rigid Skin: Rashes: no rashes Wounds: no wounds Neuro: General: patient oriented x3, tone normal and no meningeal signs Gait exam (Neuro): Normal gait present Extrem: General: Yes normal to inspection Course Course Course Narrative: -influenza a positive -my interpretation of chest x-ray appears unremarkable. 1239--patient's vital signs improved after p.o. Tylenol. Results discussed with patient including worrisome signs and symptoms and strict return precautions, and when to return to the emergency department. They verbalized understanding and feel safe for discharge at this time. Medications Administered Discontinued Medications Generic Name Dose Route Start Last Admin Trade Name Isa PRN Reason Stop Dose Admin Acetaminophen 650 mg 11/16/22 11:14 11/16/22 11:27 Acetaminophen 325 Mg Tablet PO 11/16/22 11:15 650 mg ONCE ONE Administration Medical Decision Making Medical Decision Making MDM Narrative: 37-year-old male with a past medical history of anxiety, depression, presenting to the ED complaining of myalgias, body aches, subjective fever, chills, nonproductive cough, chest discomfort with cough, sore throat, and diarrhea x3 days. On exam febrile to 101.4, tachycardic likely from fever, NAD/nontoxic appearing, lungs CTA, abdomen soft/nontender. Concern for viral illness including COVID-19 worse influenza. Rule out pneumonia. Low suspicion for gastroenteritis/intra-abdominal pathology including appendicitis/diverticulitis or mastoiditis/otitis. 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 Tylenol, re-evaluate Please refer to course for remaining clinical decision making, interpretation of labs/imaging results, and discussions with consultants and/or family members. Differential Diagnosis Differential Diagnoses: The differential diagnosis associated with the presentation includes As above Lab Data Labs: Lab Results 11/16/22 11/16/22 11/16/22 Range/Units 11:01 11:01 11:01 COVID-19 (RAJIV) Negative (Negative) COVID-19 Clin Com See Note Influenza Type A (CORAL) Positive A (Negative) Influenza Type B (CORAL) Negative (Negative) Influenza A & B Note See Note S. pyogenes GrpA CORAL Negative (Negative) Radiology Impression Discussion of test interpretation with radiology: I have reviewed the radiologist's reading. Prescription Management I considered prescription management with: Antiviral and Antibiotic Discharge Plan Discharge Clinical Impression: Influenza Patient Disposition: Home, Self-Care Instructions: Influenza (ED) Additional Instructions: You have the flu. Please stay hydrated, take Tylenol and Motrin as needed for body aches/fever Rest Wear your mask, cover your mouth, wash your hands, you are contagious If symptoms persist or worsen, fevers are unresolved by medications, you are unable to tolerate liquids/food for more than 6 hours return to the emergency department Prescriptions: No Action doxycycline hyclate 100 mg capsule 100 mg PO BID 10 Days Qty: 20 0RF ibuprofen 600 mg tablet 600 mg PO QID PRN (Reason: fever or pain) Qty: 20 0RF acetaminophen 650 mg tablet extended release 650 mg PO Q8H PRN (Reason: fever or pain) Qty: 20 0RF Rx Instructions: Alternate doses with ibuprofen cephalexin 500 mg capsule 500 mg PO QID 7 Days Qty: 28 0RF doxycycline hyclate 100 mg capsule 100 mg PO BID 7 Days Qty: 14 0RF naproxen 500 mg tablet 500 mg PO BID PRN (Reason: pain) 10 Days Qty: 20 0RF Referrals: Physician,None [Primary Care Provider] - 5 days Stand Alone Forms: Work/School Release Print Language: Amharic
[2022-11-16 11:18] LABS: Strep A Nucleic Acid Negative (Negative)
[2022-11-16 11:22] LABS: COVID-19 Test Negative (Negative); IDNOW Serial# BCCEAD1C
[2022-11-16 11:23] LABS: IDNOW Serial# 16C4AD1C; Influenza A Positive (Negative); Influenza B2 Negative (Negative)
[2022-11-16] MEDS: Acetaminophen 325 MG TABLET 650 MG PO (11:27)
[2022-11-16 12:37] VITALS: BP 126/68; PULSE 82; RESP 13; TEMP 36.9; O2SAT 93
[2022-11-16 12:51] VITALS: PULSE 86; O2SAT 98
== END 2022-11-16 13:03 | disposition home or self-care (01) ==
PROVIDERS: Emergency Provider Student in an Organized Health Care Education/Training Program
DX: J10.1 Influenza due to other identified influenza virus with other respiratory manifestations (principal); M79.10 Myalgia, unspecified site; R05.9 Cough, unspecified; R50.9 Fever, unspecified; Z20.822 Contact with and (suspected) exposure to COVID-19
CPT/HCPCS: 71045; 87502; 87635; 87651; 99283

== ENCOUNTER 2023-02-06 02:19 | Emergency (ER) | payer MEDICARE, MEDICAID, SELFPAY ==
[2023-02-06 02:28] VITALS: BP 114/77; PULSE 84; RESP 16; TEMP 37; O2SAT 97; BMI 30.4
--- NOTE | 2023-02-06 05:48 | ED.SKABFB ---
HPI - Skin/Abscess/Foreign Bdy General Chief complaint: Skin/Abscess/Foreign Body Stated complaint: abscess Time Seen by Provider: 02/06/23 05:37 Source: patient Mode of arrival: ambulatory Limitations: no limitations History of Present Illness HPI narrative: 37-year-old male who presents emergency department for evaluation of an abscess to his right buttocks area. Patient states he has had multiple abscesses in his groin area and sometimes the require incision and drainage is sometimes improved with antibiotics. He states over the past 2-3 days he has had a very painful lump in his right buttocks area underneath his testicle. He also states that he has a no other painful lump in the right groin area. He states that he has had chills but no fever. He denies loss of appetite, denied fatigue or weakness. He states that the areas are extremely painful. Related Data Previous Rx's Medication Instructions Recorded doxycycline hyclate 100 mg capsule 100 mg PO BID 10 days #20 caps 07/09/21 acetaminophen 650 mg 650 mg PO Q8H PRN fever or pain 05/05/22 tablet,extended release #20 tabs ibuprofen 600 mg tablet 600 mg PO QID PRN fever or pain 05/05/22 #20 tabs cephalexin 500 mg capsule 500 mg PO QID 7 days #28 caps 06/26/22 doxycycline hyclate 100 mg capsule 100 mg PO BID 7 days #14 caps 06/26/22 naproxen 500 mg tablet 500 mg PO BID PRN pain 10 days #20 06/26/22 tabs cephalexin 500 mg capsule 500 mg PO TID 7 days #21 caps 02/06/23 doxycycline hyclate 100 mg tablet 100 mg PO Q12H 7 days #14 tabs 02/06/23 oxycodone-acetaminophen 5 mg-325 1 tab PO Q4H PRN pain #14 tabs 02/06/23 mg tablet (Percocet) Allergies Allergy/AdvReac Type Severity Reaction Status Date / Time Sulfa (Sulfonamide Allergy Severe SWELLING, Verified 02/06/23 02:32 Antibiotics) skin [SULFA (SULFONAMIDE blisters ANTIBIOTICS)] Review of Systems Review of Systems: Yes all other systems are reviewed and are negative PMFSH Past Medical History PMFSH Narrative: Past medical history: Multiple skin abscesses. Social history: He denies tobacco, alcohol and drug use. Medical History Anxiety Depression Social History Social History Advance Directives: No Advance Directives Information Provided: Yes Physical Exam Vital Signs: Vital Signs: Last Vital Signs Temp 98.6 F 02/06/23 02:28 Pulse 84 02/06/23 02:28 Resp 16 02/06/23 02:28 BP 114/77 02/06/23 02:28 Pulse Ox 97 02/06/23 02:28 O2 Del Method 02/06/23 02:28 BMI result Body Mass Index 30.4 General: Awake, alert, male patient, pleasant, cooperative no distress Skin exam: The patient does have a tender right groin early abscess which is not erythematous and does not appear to be flocculent. There is a small tender early abscess in the right perirectal area which is not erythematous and is not flocculent. Medical Decision Making Medical Decision Making MDM Narrative: 37-year-old male with a history of recurrent subcutaneous abscesses who presents emergency department for evaluation of right groin and right buttocks area pain and tenderness. On exam I believe the patient has 2 early abscesses that are indurated and not flocculent, not ready to be drained at this time. I did discuss this with the patient. Patient was started on doxycycline 100 mg q.12 hours x7 days and cephalexin 500 mg 3 times a day x7 days. He was ibuprofen 400 mg 3 times a day and Percocet 5/325 1 pill every 4 hours as needed for pain. The patient was advised to apply heat to the area for 15 minutes 4 to 6 times a day. I will refer him to General surgery for follow-up to see if these early abscesses need to be incised and drained. Differential Diagnosis Differential diagnosis includes was not limited to early abscess, cellulitis Discharge Plan Discharge Clinical Impression: Abscess of skin or subcutaneous tissue Qualifiers: Site of cutaneous abscess: buttock Qualified Code(s): L02.31 - Cutaneous abscess of buttock Patient Disposition: Home, Self-Care Instructions: Abscess (ED) Additional Instructions: At this time, I believe that you have an early abscess that is not ready to be drained. Take ibuprofen 400 mg pills, 1 pills every 6 hours as needed for pain. Take Percocet 5/325 mg pills, 1 pill every 4 hours as needed for pain. Do not drive or work while taking this medication since they can cause sleepiness. Percocet contains oxycodone which is a narcotic medication that can be addicting. If you are concerned about addiction you can ask the pharmacist for less pills or do not get this prescription filled. Take doxycycline 100 mg, 1 pill every 12 hours for 7 days Take Keflex (cephalexin) 500 mg pills, 1 pill 3 times a day for 7 days. Follow-up with our general surgeon Dr. Pal in 2-3 days for re-evaluation to see if he has abscesses need to be drained Please return to the emergency department if your symptoms get worse or if you develop any symptoms that are concerning to you. Prescriptions: New cephalexin 500 mg capsule 500 mg PO TID 7 Days Qty: 21 0RF doxycycline hyclate 100 mg tablet 100 mg PO Q12H 7 Days Qty: 14 0RF oxycodone-acetaminophen [Percocet] 5-325 mg tablet 1 tab PO Q4H PRN (Reason: pain) Qty: 14 0RF Rx Instructions: Partial Fill upon patient request. No Action doxycycline hyclate 100 mg capsule 100 mg PO BID 10 Days Qty: 20 0RF ibuprofen 600 mg tablet 600 mg PO QID PRN (Reason: fever or pain) Qty: 20 0RF acetaminophen 650 mg tablet extended release 650 mg PO Q8H PRN (Reason: fever or pain) Qty: 20 0RF Rx Instructions: Alternate doses with ibuprofen cephalexin 500 mg capsule 500 mg PO QID 7 Days Qty: 28 0RF doxycycline hyclate 100 mg capsule 100 mg PO BID 7 Days Qty: 14 0RF naproxen 500 mg tablet 500 mg PO BID PRN (Reason: pain) 10 Days Qty: 20 0RF Referrals: Garry Pal MD [Physician] - 3 days (Early abscess left groin and left buttocks area, started on doxycycline, Keflex, ibuprofen Percocet. Needs follow-up to see if these abscesses progress and need to be drained)
[2023-02-06 06:00] VITALS: BP 118/74; PULSE 76; RESP 18; O2SAT 97
== END 2023-02-06 06:13 | disposition home or self-care (01) ==
PROVIDERS: Emergency Provider Emergency Medicine Emergency Medical Services
DX: L02.31 Cutaneous abscess of buttock (principal)
CPT/HCPCS: 99283

== ENCOUNTER 2023-02-08 12:54 | Emergency (ER) | payer MEDICARE, MEDICAID, SELFPAY ==
--- NOTE | ~2023-02-08 | CT_ITS ---
EXAMINATION: CT PELVIS WITH CONTRAST CLINICAL INFORMATION: Perirectal abscess COMPARISON: Baseline 12/06/2015 TECHNIQUE: Helical scanning was performed with submillimeter collimation through the pelvis with the use of oral contrast and during bolus intravenous injection of 85 mL of Omnipaque 350 intravenous contrast. Sagittal and coronal multiplanar 2-D reconstructions were obtained. This CT examination was performed using dose optimization techniques as appropriate, variously including the following: *Automated exposure control *Adjustment of mA and/or kV according to patient size (this includes techniques or standardized protocols for targeted exams where dose is matched to indication/reason for exam; i.e. extremities or head) *Use of iterative reconstruction technique DLP: 333 mGy-cm FINDINGS: PELVIS: There is no pelvic mass. The rectum appears normal without evidence for any thickening or inflammatory changes. Within the right intergluteal fold, there is a small peripherally thickly enhancing abnormality measuring up to 4.6 cm craniocaudal and 2.2 x 1 cm transverse. The appearance is most consistent with a small abscess within the intergluteal soft tissues. Communication with the anal canal is not excluded. This is within the ischioanal space technically. No other focal lesion. No pathologic lymphadenopathy. Reactive appearing inguinal lymph nodes and a skin lesion within the left inguinal fold most likely sebaceous cysts. OSSEOUS STRUCTURES: Within normal limits CT/CT pelvis w IV con IMPRESSION: Right intergluteal fold abscess as above. Communication with the anal canal not excluded.
[2023-02-08 13:18] VITALS: BP 131/77; PULSE 98; RESP 16; TEMP 36.6; O2SAT 96; BMI 36.5
--- NOTE | 2023-02-08 13:18 | ED_ITS ---
HPI - Skin/Abscess/Foreign Bdy General Chief complaint: Skin/Abscess/Foreign Body <VELVET Escalante - Last Filed: 02/08/23 13:21> Stated complaint: Abscess in R buttocks <VELVET Escalante - Last Filed: 02/08/23 13:21> Time Seen by Provider: 02/08/23 13:42 <VELVET Escalante - Last Filed: 02/08/23 13:21> Source: patient and partner cco <Gayle Chu NP - Last Filed: 02/08/23 19:13> Mode of arrival: ambulatory <Gayle Chu NP - Last Filed: 02/08/23 19:13> Limitations: language barrier <Gayle Chu NP - Last Filed: 02/08/23 19:13> History of Present Illness HPI narrative: 37-year-old male who is previously healthy presents the ER with complaints of abscess to the buttocks region. Patient reports he was here 2 days ago and given cephalexin and doxycycline but feels that the abscess is growing larger and is having increasing pain. Patient denies any fevers or chills. <Gayle Chu NP - Last Filed: 02/08/23 19:13> MD complaint: abscess/boil <Gayle Chu NP - Last Filed: 02/08/23 19:13> Related Data Home medications: Previous Rx's Medication Instructions Recorded doxycycline hyclate 100 mg capsule 100 mg PO BID 10 days #20 caps 07/09/21 acetaminophen 650 mg 650 mg PO Q8H PRN fever or pain 05/05/22 tablet,extended release #20 tabs ibuprofen 600 mg tablet 600 mg PO QID PRN fever or pain 05/05/22 #20 tabs cephalexin 500 mg capsule 500 mg PO QID 7 days #28 caps 06/26/22 doxycycline hyclate 100 mg capsule 100 mg PO BID 7 days #14 caps 06/26/22 naproxen 500 mg tablet 500 mg PO BID PRN pain 10 days #20 06/26/22 tabs cephalexin 500 mg capsule 500 mg PO TID 7 days #21 caps 02/06/23 doxycycline hyclate 100 mg tablet 100 mg PO Q12H 7 days #14 tabs 02/06/23 oxycodone-acetaminophen 5 mg-325 1 tab PO Q4H PRN pain #14 tabs 02/06/23 mg tablet (Percocet) docusate sodium 100 mg capsule 100 mg PO BID #60 caps 02/08/23 (Colace) oxycodone 5 mg tablet 5 mg PO Q6H PRN pain #10 tabs 02/08/23 <VELVET Escalante - Last Filed: 02/08/23 13:21> Allergies/Adverse reactions: Allergies Allergy/AdvReac Type Severity Reaction Status Date / Time Sulfa (Sulfonamide Allergy Severe SWELLING, Verified 02/06/23 02:32 Antibiotics) skin [SULFA (SULFONAMIDE blisters ANTIBIOTICS)] <VELVET Escalante - Last Filed: 02/08/23 13:21> Review of Systems Review of Systems: Yes all other systems are reviewed and are negative <Gayle Chu NP - Last Filed: 02/08/23 19:13> Constitutional: Constitutional: Reports no additional constitutional complaints, Denies body ache(s), Denies chills, Denies fever(s), Denies heada kalyan(s) and Denies weakness <Gayle Chu NP - Last Filed: 02/08/23 19:13> Eyes: Eyes: Reports no additional eye complaints and Denies change in vision <Gayle Chu NP - Last Filed: 02/08/23 19:13> ENT: Reports system reviewed and no additional complaints, except as documented, Denies dizziness, Denies headache(s), Denies nasal congestion, Denies nasal discharge and Denies neck pain <Gayle Chu NP - Last Filed: 02/08/23 19:13> Cardiovascular: Cardiovascular: Reports no additional cardiovascular complaints, Denies chest pain, Denies leg edema and Denies dyspnea <Gayle Chu NP - Last Filed: 02/08/23 19:13> Respiratory: Respiratory: Reports no additional respiratory complaints, Denies cough and Denies dyspnea <Gayle Chu NP - Last Filed: 02/08/23 19:13> Gastrointestinal: Gastrointestinal: Reports no additional gastrointestinal complaints, Denies abdominal pain, Denies diarrhea, Denies nausea and Denies vomiting <Gayle Chu NP - Last Filed: 02/08/23 19:13> Genitourinary: Genitourinary: Denies urinary incontinence <Gayle Chu NP - Last Filed: 02/08/23 19:13> Musculoskeletal: Musculoskeletal: Reports no additional musculoskeletal complaints, Denies back pain, Denies arthralgias, Denies joint swelling, Denies neck pain, Denies numbness and Denies tingling <Gayle Chu NP - Last Filed: 02/08/23 19:13> Integumentary/Breasts: Skin/Breast: Reports system reviewed and no additional complaints, except as docu, Reports swelling, Reports erythema and Denies rash <Gayle Chu NP - Last Filed: 02/08/23 19:13> Neurologic: Reports system reviewed and no additional complaints, except as documented, Denies Abnormal speech present, Denies dizziness, Denies headache (s), Denies numbness, Denies tingling and Denies weakness <Gayle Chu NP - Last Filed: 02/08/23 19:13> [facility] Past Medical History Attestation statement: The following information was validated with the patient. <Gayle Chu NP - Last Filed: 02/08/23 19:13> Source: old records reviewed and nursing notes reviewed <Gayle Chu NP - Last Filed: 02/08/23 19:13> Medical History: Medical History Anxiety Depression <VELVET Escalante - Last Filed: 02/08/23 13:21> Social History Social History: Social History Advance Directives: No Advance Directives Information Provided: Yes <VELVET Escalante - Last Filed: 02/08/23 13:21> Physical Exam Vital Signs: Vital Signs: Last Vital Signs Temp 99.2 F 02/08/23 15:51 Pulse 72 02/08/23 15:51 Resp 16 02/08/23 15:51 BP 109/72 02/08/23 15:51 Pulse Ox 98 02/08/23 15:51 O2 Del Method Room Air 02/08/23 15:51 BMI result Body Mass Index 36.5 <VELVET Escalante - Last Filed: 02/08/23 13:21> Vital Signs: Last Vital Signs Temp 99.2 F 02/08/23 15:51 Pulse 72 02/08/23 15:51 Resp 16 02/08/23 15:51 BP 109/72 02/08/23 15:51 Pulse Ox 98 02/08/23 15:51 O2 Del Method Room Air 02/08/23 15:51 BMI result Body Mass Index 36.5 <Gayle Chu NP - Last Filed: 02/08/23 19:13> Const: General: cooperative, healthy appearing, comfortable and no acute distress <Gayle Chu NP - Last Filed: 02/08/23 19:13> Orientation/consciousness: patient oriented x3 <Gayle Chu NP - Last Filed: 02/08/23 19:13> Limitations: no limitations <Gayle Chu NP - Last Filed: 02/08/23 19:13> HEENT: Head: Yes normal to inspection <Gayle Chu NP - Last Filed: 02/08/23 19:13> Ears: hearing grossly normal bilaterally <Gayle Chu NP - Last Filed: 02/08/23 19:13> General nose exam: Normal external nose present <Gayle Chu NP - Last Filed: 02/08/23 19:13> Face and sinus: Yes normal facial exam <Gayle Chu NP - Last Filed: 02/08/23 19:13> Mouth: Normal oral and palatal mucosa present <Gayle Chu NP - Last Filed: 02/08/23 19:13> Throat: Yes posterior oropharynx normal <Gayle Chu NP - Last Filed: 02/08/23 19:13> Eyes: General: appearance normal, both eyes and all related structures <Gayle Chu NP - Last Filed: 02/08/23 19:13> Pupils: Equal, round and reactive pupils present <Gayle Chu INVENTORY REPRESENTATIVE - Last Filed: 02/08/23 19:13> Neck: Neck: Yes normal visual inspection <Gayle Chu INVENTORY REPRESENTATIVE - Last Filed: 02/08/23 19:13> Chest: Chest palpation & inspection: normal inspection of the chest <Gayle Chu INVENTORY REPRESENTATIVE - Last Filed: 02/08/23 19:13> Resp: Effort & Inspection: normal respiratory effort <Gayle Chu INVENTORY REPRESENTATIVE - Last Filed: 02/08/23 19:13> Auscultation: clear to auscultation bilaterally <Gayle Chu INVENTORY REPRESENTATIVE - Last Filed: 02/08/23 19:13> Cardio: Rate: regular rate <Gayle Chu INVENTORY REPRESENTATIVE - Last Filed: 02/08/23 19:13> Rhythm: regular rhythm <Gayle Chu INVENTORY REPRESENTATIVE - Last Filed: 02/08/23 19:13> Peripheral pulses: Peripheral pulses 2+ throughout <Gayle Chu INVENTORY REPRESENTATIVE - Last Filed: 02/08/23 19:13> GI: Other: To the right buttocks there is a large indurated area of tenderness which extends to the car anal area there is no fluctuance or pointing. No extension into the perineum <Gayle Chu INVENTORY REPRESENTATIVE - Last Filed: 02/08/23 19:13> Inspection: Yes normal to inspection <Gayle Chu INVENTORY REPRESENTATIVE - Last Filed: 02/08/23 19:13> Palpation (GI): Soft to palpation and nontender <Gayle Chu INVENTORY REPRESENTATIVE - Last Filed: 02/08/23 19:13> Auscultation: normal bowel sounds <Gayle Chu INVENTORY REPRESENTATIVE - Last Filed: 02/08/23 19:13> Back/Spine/Pelvis: Thoracic/Lumbar Spine: thoracic and lumbar spine normal to inspection <Gayle Chu INVENTORY REPRESENTATIVE - Last Filed: 02/08/23 19:13> Skin: General skin exam: no rashes or lesions noted <Gayle Chu INVENTORY REPRESENTATIVE - Last Filed: 02/08/23 19:13> Neuro: General: patient oriented x3, no focal motor deficits and normal sensation to monofilament <Gayle Chu NP - Last Filed: 02/08/23 19:13> Cranial nerves: Yes Equal, round and reactive pupils present <Gayle Chu NP - Last Filed: 02/08/23 19:13> Cognition (Neuro): normal cognition <Gayle Chu NP - Last Filed: 02/08/23 19:13> Speech: No Abnormal speech present <Gayle Chu NP - Last Filed: 02/08/23 19:13> Gait exam (Neuro): Normal gait present <Gayle Chu NP - Last Filed: 02/08/23 19:13> Motor exam (neuro): 5/5 motor strength present throughout <Gayle Chu INVENTORY REPRESENTATIVE - Last Filed: 02/08/23 19:13> Extrem: General: Yes normal to inspection <Gayle Chu NP - Last Filed: 02/08/23 19:13> Course Course Course Narrative: RME--37 yo M w/PMHx abscess presenting to the ED c/o worsening abscess to R buttock x6 days. Patient was seen in our ED on 02/06 for similar symptoms, no I&D performed at that time, reports compliance with previously prescribed antibiotics. Denies drainage or fever at this time Area not examined triage. Full eval will be performed by ED provider <VELVET Escalante - Last Filed: 02/08/23 13:21> Reevaluation(s) Reevaluation #1: CT shows right intergluteal fold abscess. Communication with anal canal cannot be excluded. I did review the CT scan it does not appear involved. I saw the patient at the bedside with Dr. Beth. The area is quite indurated and not conducive to incision and drainage. Patient overall nontoxic, afebrile, leukocytosis actually improving. Would recommend patient to increase and warm compresses, continue antibiotics will provide additional analgesia. Reviewed worrisome signs and symptoms when to return to the emergency room. Comfortable discharge home. <Gayle Chu NP - Last Filed: 02/08/23 19:13> Medications Administered Discontinued Medications Generic Name Dose Route Start Last Admin Trade Name Freq PRN Reason Stop Dose Admin Piperacillin Sod/Tazobactam 50 mls @ 100 mls/hr 02/08/23 14:45 02/08/23 15:42 Sod 3.375 gm/ Sodium Chloride IV 02/08/23 15:14 Infused ONCE ONE Infusion Iohexol 100 ml 02/08/23 18:07 02/08/23 18:07 Iohexol 350 Mg/Ml 100 Ml Infus..Btl IV 02/08/23 18:08 100 ml ONCE ONE Administration Morphine Sulfate 4 mg 02/08/23 14:45 02/08/23 15:12 Morphine Sulfate 4 Mg/Ml Cartridge IVPUSH 02/08/23 14:46 4 mg ONCE ONE Administration Protocol Morphine Sulfate 4 mg 02/08/23 17:14 02/08/23 17:39 Morphine Sulfate 4 Mg/Ml Cartridge IVPUSH 02/08/23 17:15 4 mg ONCE ONE Administration Protocol Ondansetron HCl 4 mg 02/08/23 14:45 02/08/23 15:12 Ondansetron Hcl 4 Mg/2 Ml Vial IVPUSH 02/08/23 14:46 4 mg ONCE ONE Administration <VELVET Escalante - Last Filed: 02/08/23 13:21> Medications Administered Discontinued Medications Generic Name Dose Route Start Last Admin Trade Name Isa PRN Reason Stop Dose Admin Piperacillin Sod/Tazobactam 50 mls @ 100 mls/hr 02/08/23 14:45 02/08/23 15:42 Sod 3.375 gm/ Sodium Chloride IV 02/08/23 15:14 Infused ONCE ONE Infusion Iohexol 100 ml 02/08/23 18:07 02/08/23 18:07 Iohexol 350 Mg/Ml 100 Ml Infus..Btl IV 02/08/23 18:08 100 ml ONCE ONE Administration Morphine Sulfate 4 mg 02/08/23 14:45 02/08/23 15:12 Morphine Sulfate 4 Mg/Ml Cartridge IVPUSH 02/08/23 14:46 4 mg ONCE ONE Administration Protocol Morphine Sulfate 4 mg 02/08/23 17:14 02/08/23 17:39 Morphine Sulfate 4 Mg/Ml Cartridge IVPUSH 02/08/23 17:15 4 mg ONCE ONE Administration Protocol Ondansetron HCl 4 mg 02/08/23 14:45 02/08/23 15:12 Ondansetron Hcl 4 Mg/2 Ml Vial IVPUSH 02/08/23 14:46 4 mg ONCE ONE Administration <Gayle Chu NP - Last Filed: 02/08/23 19:13> Medical Decision Making Medical Decision Making [facility] Narrative: 37-year-old male here with abscess to the buttocks which extends the peroneal area despite taking doxycycline/cephalexin for 48 hrs. Will need labs, CT pelvis At this time infection suspected. Antibiotics ordered <Gayle Chu NP - Last Filed: 02/08/23 19:13> Differential Diagnosis Differential Diagnoses: The differential diagnosis associated with the presentation includes <Gayle Chu NP - Last Filed: 02/08/23 19:13> Perirectal abscess, fistula <Gayle Chu NP - Last Filed: 02/08/23 19:13> Lab Data [facility] Lab Attestation statement: I reviewed the patient's lab results. <Gayle Chu NP - Last Filed: 02/08/23 19:13> Result Diagrams: 02/08/23 15:06 02/08/23 15:06 <VELVET Escalante - Last Filed: 02/08/23 13:21> Labs: Lab Results 02/08/23 02/08/23 02/08/23 Range/Units 15:06 15:06 16:44 WBC 13.4 H (4.8-10.8) X10*3/uL RBC 5.55 (4.60-5.80) X10*6/uL Hgb 15.5 (14.0-18.0) g/dl Hct 47.8 (42.0-52.0) % MCV 86.1 (80.0-98.0) fL MCH 27.9 (27.0-33.0) pg MCHC 32.4 (31.0-36.0) g/dl RDW 13.3 (11.0-16.0) % Plt Count 271 (160-400) X10*3/uL MPV 9.8 (9.4-12.4) fL Immature Gran % (Auto) 0.4 (0.0-0.4) % Neut % (Auto) 67.5 (45-73) % Lymph % (Auto) 20.0 (20-40) % [place] % (Auto) 10.4 (2-11) % Eos % (Auto) 1.0 (0-4) % Baso % (Auto) 0.7 (0-2) % Lymph # (Auto) 2.7 (1.2-4.9) X10*3/uL [place] # (Auto) 1.4 H (0.1-1.2) X10*3/uL Eos # (Auto) 0.1 (0.0-0.4) X10*3/uL Baso # (Auto) 0.1 (0.0-0.2) X10*3/uL Abs Immat Gran (auto) 0.05 H (0.00-0.03) X10*3/uL Absolute Neuts (auto) 9.0 H (2.0-8.3) x10*3/uL Absolute Nucleated RBC 0.000 (0.0-0.012) X10*3/uL Nucleated RBC % (auto) 0.0 (0.0-0.2) /100WBC Sodium 141 (135-145) mmol/L Potassium 3.9 (3.3-5.1) mmol/L Chloride 108 (96-108) mmol/L Carbon Dioxide 24 (22-29) mmol/L Anion Gap 13 (12-20) BUN 9 (9-16) mg/dL Creatinine 0.92 (0.5-1.4) mg/dL Estim Creat Clear Calc 132.8 Estimated GFR > 60 Random Glucose 85 (60-115) mg/dL Lactic Acid 1.4 (0.5-2.0) mmol/L Calcium 8.5 D (8.4-10.2) mg/dL Total Bilirubin 0.6 (0.0-1.0) mg/dL Direct Bilirubin 0.2 (0.0-0.5) mg/dL AST 27 (5-37) U/L ALT 32 (0-40) U/L Alkaline Phosphatase 61 (39-117) U/L Total Protein 7.4 (6.5-8.0) g/dL Albumin 3.7 (3.5-5.0) g/dL <VELVET Escalante - Last Filed: 02/08/23 13:21> Lab Results 02/08/23 02/08/23 02/08/23 Range/Units 15:06 15:06 16:44 WBC 13.4 H (4.8-10.8) X10*3/uL RBC 5.55 (4.60-5.80) X10*6/uL Hgb 15.5 (14.0-18.0) g/dl Hct 47.8 (42.0-52.0) % MCV 86.1 (80.0-98.0) fL MCH 27.9 (27.0-33.0) pg MCHC 32.4 (31.0-36.0) g/dl RDW 13.3 (11.0-16.0) % Plt Count 271 (160-400) X10*3/uL MPV 9.8 (9.4-12.4) fL Immature Gran % (Auto) 0.4 (0.0-0.4) % Neut % (Auto) 67.5 (45-73) % Lymph % (Auto) 20.0 (20-40) % [place] % (Auto) 10.4 (2-11) % Eos % (Auto) 1.0 (0-4) % Baso % (Auto) 0.7 (0-2) % Lymph # (Auto) 2.7 (1.2-4.9) X10*3/uL [place] # (Auto) 1.4 H (0.1-1.2) X10*3/uL Eos # (Auto) 0.1 (0.0-0.4) X10*3/uL Baso # (Auto) 0.1 (0.0-0.2) X10*3/uL Abs Immat Gran (auto) 0.05 H (0.00-0.03) X10*3/uL Absolute Neuts (auto) 9.0 H (2.0-8.3) x10*3/uL Absolute Nucleated RBC 0.000 (0.0-0.012) X10*3/uL Nucleated RBC % (auto) 0.0 (0.0-0.2) /100WBC Sodium 141 (135-145) mmol/L Potassium 3.9 (3.3-5.1) mmol/L Chloride 108 (96-108) mmol/L Carbon Dioxide 24 (22-29) mmol/L Anion Gap 13 (12-20) BUN 9 (9-16) mg/dL Creatinine 0.92 (0.5-1.4) mg/dL Estim Creat Clear Calc 132.8 Estimated GFR > 60 Random Glucose 85 (60-115) mg/dL Lactic Acid 1.4 (0.5-2.0) mmol/L Calcium 8.5 D (8.4-10.2) mg/dL Total Bilirubin 0.6 (0.0-1.0) mg/dL Direct Bilirubin 0.2 (0.0-0.5) mg/dL AST 27 (5-37) U/L ALT 32 (0-40) U/L Alkaline Phosphatase 61 (39-117) U/L Total Protein 7.4 (6.5-8.0) g/dL Albumin 3.7 (3.5-5.0) g/dL <Gayle Chu NP - Last Filed: 02/08/23 19:13> Independent Interpretation I performed an independent interpretation of an: CT Scan <Gayle Chu NP - Last Filed: 02/08/23 19:13> Interpretation: I independently reviewed the CT scan and agree with radiologist's report <Gayle Chu NP - Last Filed: 02/08/23 19:13> Radiology Impression Discussion of test interpretation with radiology: I have reviewed the radiologist's reading. <Gayle Chu NP - Last Filed: 02/08/23 19:13> Radiologist Impression: [place] [id number] CT Scan Report Signed Patient: Jose L Lennon MR#: [id number] : 1985 Acct:[id number] Age/Sex: 37 / M ADM Date: 02/08/23 Loc: .ED Attending Dr: Ordering Physician: Gayle Walker NP Date of Service: 02/08/23 Procedure(s): CT pelvis w IV con Accession Number(s): [id number] cc: Gayle Walker NP~ EXAMINATION: CT PELVIS WITH CONTRAST CLINICAL INFORMATION: Perirectal abscess? COMPARISON: Baseline 12/06/2015? ? TECHNIQUE: Helical scanning was performed with submillimeter collimation through the pelvis with the use of oral contrast and during bolus intravenous injection of 85 mL of Omnipaque 350 intravenous contrast. Sagittal and coronal multiplanar 2-D reconstructions were obtained. This CT examination was performed using dose optimization techniques as appropriate, variously including the following: *Automated exposure control *Adjustment of mA and/or kV according to patient size (this includes techniques or standardized protocols for targeted exams where dose is matched to indication/reason for exam; i.e. extremities or head) *Use of iterative reconstruction technique DLP: 333 mGy-cm FINDINGS: PELVIS: There is no pelvic mass. The rectum appears normal without evidence for any thickening or inflammatory changes. Within the right intergluteal fold, there is a small peripherally thickly enhancing abnormality measuring up to 4.6 cm craniocaudal and 2.2 x 1 cm transverse. The appearance is most consistent with a small abscess within the intergluteal soft tissues. Communication with the anal canal is not excluded. This is within the ischioanal? space technically. No other focal lesion. No pathologic lymphadenopathy. Reactive appearing inguinal lymph nodes and a skin lesion within the left inguinal fold most likely sebaceous cysts. OSSEOUS STRUCTURES: Within normal limits? CT/CT pelvis w IV con IMPRESSION: Right intergluteal fold abscess as above. Communication with the anal canal not excluded. <Gayle Chu NP - Last Filed: 02/08/23 19:13> Discharge Plan Discharge Clinical Impression: Abscess of skin or subcutaneous tissue <VELVET Escalante - Last Filed: 02/08/23 13:21> Patient Disposition: Home, Self-Care <VELVET Escalante - Last Filed: 02/08/23 13:21> Instructions: Abscess (ED) <VELVET Escalante - Last Filed: 02/08/23 13:21> Additional Instructions: Continue doxycycline and cephelexin. Warm compresses to the affected area. Continuar con doxiciclina y cefelexina. Compresas calientes en la claudio afectada. <VELVET Escalante - Last Filed: 02/08/23 13:21> Prescriptions: New oxycodone 5 mg tablet 5 mg PO Q6H PRN (Reason: pain) Qty: 10 0RF Rx Instructions: Partial Fill upon patient request. docusate sodium [Colace] 100 mg capsule 100 mg PO BID Qty: 60 0RF No Action doxycycline hyclate 100 mg capsule 100 mg PO BID 10 Days Qty: 20 0RF ibuprofen 600 mg tablet 600 mg PO QID PRN (Reason: fever or pain) Qty: 20 0RF acetaminophen 650 mg tablet extended release 650 mg PO Q8H PRN (Reason: fever or pain) Qty: 20 0RF Rx Instructions: Alternate doses with ibuprofen cephalexin 500 mg capsule 500 mg PO QID 7 Days Qty: 28 0RF doxycycline hyclate 100 mg capsule 100 mg PO BID 7 Days Qty: 14 0RF naproxen 500 mg tablet 500 mg PO BID PRN (Reason: pain) 10 Days Qty: 20 0RF cephalexin 500 mg capsule 500 mg PO TID 7 Days Qty: 21 0RF doxycycline hyclate 100 mg tablet 100 mg PO Q12H 7 Days Qty: 14 0RF oxycodone-acetaminophen [Percocet] 5-325 mg tablet 1 tab PO Q4H PRN (Reason: pain) Qty: 14 0RF Rx Instructions: Partial Fill upon patient request. <VELVET Escalante - Last Filed: 02/08/23 13:21> Referrals: Physician,Unknown J [Primary Care Provider] - 1 week <VELVET Escalante - Last Filed: 02/08/23 13:21>
[2023-02-08] MEDS: Piperacillin Sodium/Tazobactam 3.375 GM in 0.9 % Sodium Chloride 50 ML IV (15:12)
[2023-02-08] MEDS: Morphine Sulfate 4 MG/ML CARTRIDGE IVPUSH ×2 (15:12→17:39)
[2023-02-08] MEDS: ondansetron HCL 4 MG/2 ML VIAL IVPUSH (15:12)
[2023-02-08 15:13] LABS: MANUAL DIFF FLAG NO
[2023-02-08 15:15] LABS: Basophils Absolute Auto 0.1 X10*3/uL (0.0-0.2); Basophils Percent Auto 0.7 % (0-2); Eosinophils Absolute Auto 0.1 X10*3/uL (0.0-0.4); Hematocrit 47.8 % (42.0-52.0); Hemoglobin 15.5 g/dl (14.0-18.0); Imm Gran Abs Auto 0.05 X10*3/uL (0.00-0.03); Imm Gran Pct Auto 0.4 % (0.0-0.4); Lymphocytes Absolute Auto 2.7 X10*3/uL (1.2-4.9); Mean Corpuscular HGB Conc 32.4 g/dl (31.0-36.0); Mean Corpuscular Hemoglobin 27.9 pg (27.0-33.0); Mean Corpuscular Volume 86.1 fL (80.0-98.0); Mean Platelet Volume 9.8 fL (9.4-12.4); Monocytes Absolute Auto 1.4 X10*3/uL (0.1-1.2); Monocytes Percent Auto 10.4 % (2-11); Neutrophils Percent Auto 67.5 % (45-73); Platelet Count 271 X10*3/uL (160-400); Red Blood Count 5.55 X10*6/uL (4.60-5.80); Red Cell Distribution Width 13.3 % (11.0-16.0); White Blood Count 13.4 X10*3/uL (4.8-10.8)
[2023-02-08 15:51] VITALS: BP 109/72; PULSE 72; RESP 16; TEMP 37.3; O2SAT 98
--- NOTE | 2023-02-08 15:51 | MHC.EDTECH ---
pt vitals sign taken ,1st set and 2 nd set blood culture drawn and sent to lab .
[2023-02-08 15:53] LABS: Lactic Acid 1.4 mmol/L (0.5-2.0)
[2023-02-08 17:12] LABS: Alanine Aminotransferase 32 U/L (0-40); Albumin Level 3.7 g/dL (3.5-5.0); Alkaline Phosphatase 61 U/L (39-117); Anion Gap 13 (12-20); Aspartate Amino Transferase 27 U/L (5-37); Bilirubin Direct 0.2 mg/dL (0.0-0.5); Bilirubin Total 0.6 mg/dL (0.0-1.0); Blood Urea Nitrogen 9 mg/dL (9-16); Calcium 8.5 mg/dL (8.4-10.2); Carbon Dioxide 24 mmol/L (22-29); Chloride 108 mmol/L (96-108); Creatinine Clr Calc Pharmacy 132.8; Estimated Glomerular Filt Rate > 60; Glucose Random 85 mg/dL (60-115); Potassium 3.9 mmol/L (3.3-5.1); Sodium 141 mmol/L (135-145); Total Protein 7.4 g/dL (6.5-8.0)
[2023-02-08] MEDS: iohexoL 350 MG/ML 100 ML INFUS..BTL IV (18:07)
[2023-02-08 19:26] VITALS: BP 112/73; PULSE 82; RESP 16; TEMP 38.3; O2SAT 96
--- NOTE | 2023-02-08 19:32 | PC.NURSE ---
Iv line removed with no complications. Pt tolerated well. Discharge instructions reviewed with pt. Pt verbalizes understanding.
== END 2023-02-08 19:33 | disposition home or self-care (01) ==
PROVIDERS: Nurse Practitioner Family; Emergency Provider Student in an Organized Health Care Education/Training Program
DX: K61.1 Rectal abscess (principal); R10.2 Pelvic and perineal pain; Z79.899 Other long term (current) drug therapy
CPT/HCPCS: 36415; 72193; 80048; 80076; 83605; 85025; 87040; 96365; 96375; 96376; 99284; J2270; J2405; J2543; Q9967

== ENCOUNTER 2023-02-09 10:38 | Emergency (ER) | payer MEDICARE, MEDICAID, SELFPAY ==
[2023-02-09 10:50] VITALS: BP 129/67; PULSE 110; RESP 18; TEMP 36.6; O2SAT 97; BMI 36.5
[2023-02-09] MEDS: Lidocaine HCl 1 % MPF 5 ML VIAL SUBCUT ×2 (11:44)
[2023-02-09] MEDS: Lidocaine HCl 2%/Epi 1:100,000 20 ML VIAL INFILTRATI (13:31)
--- NOTE | 2023-02-09 14:23 | ED.SKABFB ---
HPI - Skin/Abscess/Foreign Bdy General Chief complaint: Skin/Abscess/Foreign Body Stated complaint: abcess Time Seen by Provider: 02/09/23 11:15 History of Present Illness HPI narrative: Patient complains of increasing gluteal pain, this is his 3rd visit previous visits he was told that he has a developing abscess with induration but not ready to be incised, today he says pain and swelling are worse denies any fever denies any other complaint Related Data Previous Rx's Medication Instructions Recorded doxycycline hyclate 100 mg capsule 100 mg PO BID 10 days #20 caps 07/09/21 acetaminophen 650 mg 650 mg PO Q8H PRN fever or pain 05/05/22 tablet,extended release #20 tabs ibuprofen 600 mg tablet 600 mg PO QID PRN fever or pain 05/05/22 #20 tabs cephalexin 500 mg capsule 500 mg PO QID 7 days #28 caps 06/26/22 doxycycline hyclate 100 mg capsule 100 mg PO BID 7 days #14 caps 06/26/22 naproxen 500 mg tablet 500 mg PO BID PRN pain 10 days #20 06/26/22 tabs cephalexin 500 mg capsule 500 mg PO TID 7 days #21 caps 02/06/23 doxycycline hyclate 100 mg tablet 100 mg PO Q12H 7 days #14 tabs 02/06/23 oxycodone-acetaminophen 5 mg-325 1 tab PO Q4H PRN pain #14 tabs 02/06/23 mg tablet (Percocet) docusate sodium 100 mg capsule 100 mg PO BID #60 caps 02/08/23 (Colace) oxycodone 5 mg tablet 5 mg PO Q6H PRN pain #10 tabs 02/08/23 doxycycline hyclate 100 mg capsule 100 mg PO BID 7 days #14 caps 02/09/23 Allergies Allergy/AdvReac Type Severity Reaction Status Date / Time Sulfa (Sulfonamide Allergy Severe SWELLING, Verified 02/06/23 02:32 Antibiotics) skin [SULFA (SULFONAMIDE blisters ANTIBIOTICS)] PMFSH Past Medical History Source: nursing notes reviewed Medical History Anxiety Depression Social History Social History Advance Directives: No Advance Directives Information Provided: No Physical Exam Vital Signs: Vital Signs: Last Vital Signs Temp 97.9 F 02/09/23 10:50 Pulse 110 H 02/09/23 10:50 Resp 18 02/09/23 10:50 BP 129/67 02/09/23 10:50 Pulse Ox 97 02/09/23 10:50 O2 Del Method Room Air 02/09/23 10:50 BMI result Body Mass Index 36.5 General appearance no acute distress The pharynx mucous membranes are moist neck is supple respiratory no distress Abdomen soft nontender Skin exam the right gluteal area near the rectum but not including the rectum is tender and swollen and mild fluctuance, no discharge no opening Neuro no focal motor sensory deficits Course Course Course Narrative: CT scan done yesterday showed a right intergluteal fold abscess, small Yesterday the plan was to observe to see if it enlarges or worsens to consider drainage As it is more swollen according to the patient and more painful I did an I&D Procedure note at the point of maximum swelling and tenderness in the right gluteal area just superior to the gluteal fold it was cleansed with Betadine Anesthesia with 10 cc of 1% lidocaine with epi followed by another 10 cc of 1% lidocaine with epi enabled me to make all 1 cm incision This was probed to the full depth of the scalp all in a as full [place], there was only a small amount of pus discharged, packing was placed and dressing was placed It is possible that as the patient was lying face down that the pus did not drain well because of his position, it is also possible that the abscess is very deep and I did not reach it The plan is to see if the patient has improvement in the next 1-2 days, it may be that the abscess will drain when patient is standing and sitting and moving around He is told to return if pain is not relieved or worsened and he will probably need surgical consult to check for a deeper abscess The forceps was placed to maximum depth and a full [place] was made and a large cavity was probed with only minimal discharge of pus at that time Afebrile well-appearing patient is discharged Medications Administered Discontinued Medications Generic Name Dose Route Start Last Admin Trade Name Freq PRN Reason Stop Dose Admin Doxycycline Monohydrate 100 mg 02/09/23 11:34 02/09/23 11:44 Doxycycline Monohydrate 100 Mg Capsule PO 02/09/23 11:35 Not Given ONCE ONE Lidocaine HCl 5 ml 02/09/23 11:33 02/09/23 11:44 Lidocaine Hcl 1 % Mpf 5 Ml Vial SUBCUT 02/09/23 11:34 5 ml ONCE ONE Administration Lidocaine HCl 5 ml 02/09/23 11:33 02/09/23 11:44 Lidocaine Hcl 1 % Mpf 5 Ml Vial SUBCUT 02/09/23 11:34 5 ml ONCE ONE Administration Lidocaine/Epinephrine 20 ml 02/09/23 12:09 02/09/23 12:41 Lidocaine Hcl 1%/Epi 1:100,000 20 Ml Vial INFILTRATI 02/09/23 12:10 Not Given ONCE ONE Lidocaine/Epinephrine 30 ml 02/09/23 13:01 02/09/23 13:31 Lidocaine Hcl 1%/Epi 1:100,000 30 Ml Vial SUBCUT 02/09/23 13:02 Not Given ONCE ONE Lidocaine/Epinephrine 20 ml 02/09/23 13:28 02/09/23 13:31 Lidocaine Hcl 2%/Epi 1:100,000 20 Ml Vial INFILTRATI 02/09/23 13:29 20 ml ONCE ONE Administration Discharge Plan Discharge Clinical Impression: Abscess Patient Disposition: Home, Self-Care Additional Instructions: I made an incision and attempted to drain the abscess but only a small amount of pus came out It is possible that when you are standing and changing position that you will get more complete drainage, it is also possible that the abscess was deep and I did not reach it So the plan is to see if you feel improvement with reduce swelling reduced pain, or if conditions or remain the same or worsen you may need another procedure You may need to be seen by the surgeon for a more extensive exploration for deeper abscess Return in 2 days for packing removal wound check if things are not getting worse and if pain is tolerable Return immediately any time for worse pain and swelling, , fever or any worse condition or any concerns Prescriptions: New doxycycline hyclate 100 mg capsule 100 mg PO BID 7 Days Qty: 14 0RF No Action doxycycline hyclate 100 mg capsule 100 mg PO BID 10 Days Qty: 20 0RF ibuprofen 600 mg tablet 600 mg PO QID PRN (Reason: fever or pain) Qty: 20 0RF acetaminophen 650 mg tablet extended release 650 mg PO Q8H PRN (Reason: fever or pain) Qty: 20 0RF Rx Instructions: Alternate doses with ibuprofen cephalexin 500 mg capsule 500 mg PO QID 7 Days Qty: 28 0RF doxycycline hyclate 100 mg capsule 100 mg PO BID 7 Days Qty: 14 0RF naproxen 500 mg tablet 500 mg PO BID PRN (Reason: pain) 10 Days Qty: 20 0RF cephalexin 500 mg capsule 500 mg PO TID 7 Days Qty: 21 0RF doxycycline hyclate 100 mg tablet 100 mg PO Q12H 7 Days Qty: 14 0RF oxycodone-acetaminophen [Percocet] 5-325 mg tablet 1 tab PO Q4H PRN (Reason: pain) Qty: 14 0RF Rx Instructions: Partial Fill upon patient request. oxycodone 5 mg tablet 5 mg PO Q6H PRN (Reason: pain) Qty: 10 0RF Rx Instructions: Partial Fill upon patient request. docusate sodium [Colace] 100 mg capsule 100 mg PO BID Qty: 60 0RF Referrals: Joseph Manrique MD [Physician] - (Abscess)
== END 2023-02-09 14:59 | disposition home or self-care (01) ==
PROVIDERS: Emergency Provider Emergency Medicine
DX: L02.31 Cutaneous abscess of buttock (principal)
CPT/HCPCS: 10060; 99283; 99284

== ENCOUNTER 2023-09-06 14:17 | Emergency (ER) | payer MEDICARE, MEDICAID, SELFPAY ==
--- NOTE | ~2023-09-06 | XR_ITS ---
EXAMINATION: XR CHEST CLINICAL INFORMATION: Cough. COMPARISON: Chest x-ray November 16, 2022 TECHNIQUE: 2 views of the chest were obtained. FINDINGS: No significant abnormality is noted involving the heart, lungs, mediastinum, bony thorax or soft tissues. XR/XR chest 2V IMPRESSION: Unremarkable examination.
--- NOTE | 2023-09-06 14:21 | ED.GENADULT ---
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 Patient states that over the last 4 days he has had a cough and a headache. Patient denies any dizziness, lightheadedness, abdominal pain, nausea, vomiting, fever, chills, blurry vision, double vision, loss of vision, chest pain, difficulty breathing, shortness of breath, back pain, night sweats, pain with urination, increased urinary frequency, increased urinary urgency, blood in his urine or stool, syncope or a near syncopal episode, recent trauma or falls, bowel incontinence, bladder incontinence, bowel retention, bladder retention, or any other complaints at this time. Onset (ago): day(s) (4) Location: head Radiation: non-radiation Severity: mild Severity scale (1-10): 3 Quality: aching and dull Pain Consistency: constant Relieving factors: none Exacerbating factors: none Associated symptoms: cough Treatments prior to arrival: none Related Data Previous Rx's Medication Instructions Recorded doxycycline hyclate 100 mg capsule 100 mg PO BID 10 days #20 caps 07/09/21 acetaminophen 650 mg 650 mg PO Q8H PRN fever or pain 05/05/22 tablet,extended release #20 tabs ibuprofen 600 mg tablet 600 mg PO QID PRN fever or pain 05/05/22 #20 tabs cephalexin 500 mg capsule 500 mg PO QID 7 days #28 caps 06/26/22 doxycycline hyclate 100 mg capsule 100 mg PO BID 7 days #14 caps 06/26/22 naproxen 500 mg tablet 500 mg PO BID PRN pain 10 days #20 06/26/22 tabs cephalexin 500 mg capsule 500 mg PO TID 7 days #21 caps 02/06/23 doxycycline hyclate 100 mg tablet 100 mg PO Q12H 7 days #14 tabs 02/06/23 oxycodone-acetaminophen 5 mg-325 1 tab PO Q4H PRN pain #14 tabs 02/06/23 mg tablet (Percocet) docusate sodium 100 mg capsule 100 mg PO BID #60 caps 02/08/23 (Colace) oxycodone 5 mg tablet 5 mg PO Q6H PRN pain #10 tabs 02/08/23 doxycycline hyclate 100 mg capsule 100 mg PO BID 7 days #14 caps 02/09/23 benzonatate 100 mg capsule 100 mg PO BID PRN cough 7 days #14 09/06/23 caps naproxen 500 mg tablet 500 mg PO BID 7 days #14 tabs 09/06/23 Allergies Allergy/AdvReac Type Severity Reaction Status Date / Time Sulfa (Sulfonamide Allergy Severe SWELLING, Verified 09/06/23 14:22 Antibiotics) skin [SULFA (SULFONAMIDE blisters ANTIBIOTICS)] Review of Systems Constitutional: Constitutional: Reports no additional constitutional complaints, Denies chills, Denies fever(s), Reports headache(s) and Denies night sweats Eyes: Eyes: Reports no additional eye complaints, Denies blurry vision, Denies change in vision, Denies diplopia, Denies eye discharge, Denies loss of vision and Denies eye pain ENT: Denies dizziness and Reports headache(s) Cardiovascular: Cardiovascular: Reports no additional cardiovascular complaints, Denies chest pain, Denies lightheadedness, Denies Loss of Consciousness and Denies dyspnea Respiratory: Respiratory: Reports no additional respiratory complaints, Reports cough and Denies dyspnea Gastrointestinal: Gastrointestinal: Reports no additional gastrointestinal complaints, Denies abdominal pain, Denies melena, Denies hematochezia, Denies change in bowel habits and Denies change in stool character Genitourinary: Genitourinary: Reports no additional male genitourinary complaints, Denies hematuria, Denies oliguria, Denies difficulty urinating, Denies dysuria, Denies urinary frequency, Denies urinary hesitancy, Denies urinary incontinence and Denies urinary urgency Musculoskeletal: Musculoskeletal: Reports no additional musculoskeletal complaints, Denies numbness and Denies tingling Neurologic: Denies dizziness, Reports headache(s), Denies loss of vision, Denies numbness and Denies tingling Psychiatric: Psychiatric: Reports no additional psychiatric complaints Endocrine: Endocrine: Reports no additional endocrine complaints Hematologic/Lymphatic: Hematologic/Lymphatic: Reports no additional hematologic/lymphatic complaints Allergic/Immunologic: Allergic/Immunologic: Reports no additional allergic/immunologic complaints PMFSH Past Medical History Attestation statement: The following information was validated with the patient. Source: old records reviewed and nursing notes reviewed Medical History Anxiety Depression Social History Social History Advance Directives: No Advance Directives Information Provided: No Physical Exam ED Vital Signs: Vital Signs - 24 hr 09/06/23 14:22 Temperature 98 F Pulse Rate 92 Respiratory Rate 19 Blood Pressure 121/89 Pulse Oximetry 98 Oxygen Delivery Method Room Air BMI result Body Mass Index 36.9 Const General: cooperative, no acute distress, alert and awake Nutritional Appearance: well nourished Orientation/consciousness: patient oriented x3 Limitations: no limitations HENMT Head: Yes normal to inspection and Yes atraumatic Ears: hearing grossly normal bilaterally and external ears normal General nose exam: Normal external nose present, no nasal discharge noted and no epistaxis Face and sinus: Yes normal facial exam, No abrasion and No laceration Mouth: Normal oral and palatal mucosa present, no drooling and no muffled voice Eyes General: appearance normal, both eyes and all related structures Periorbital: periorbital findings normal Eyelids: Yes eyelids normal Conjunctivae: conjunctivae normal Pupils: Equal, round and reactive pupils present EOM: EOMs intact bilaterally Neck Neck: Yes normal visual inspection, Yes full ROM and Yes no lymphadenopathy Chest Chest palpation & inspection: normal inspection of the chest Resp Effort & Inspection: normal respiratory effort and able to speak in complete sentences Auscultation: clear to auscultation bilaterally Cardio Rate: regular rate Rhythm: regular rhythm GI Inspection: Yes normal to inspection Neuro General: patient oriented x3 and moves all extremities Cranial nerves: Yes Equal, round and reactive pupils present Cognition (Neuro): normal cognition Motor exam (neuro): 5/5 motor strength present throughout Sensory Exam: Normal double simultaneous stimulation for sensation Coordination: [id number] test normal Extrem General: Yes normal to inspection, Yes full ROM and Yes capillary refill normal Psych Appearance: grossly normal Mental Status: mental status grossly normal Affect: normal affect Attitude: cooperative Thought process: Normal thought process present Thought content: Normal thought content present Insight: Good insight present (Psych) Course Course Course Narrative: RME performed by Tri Bernardo PA-C. Patient is a 38 year old assigned male at presenting to the emergency department with a cough a lot of phlegm. Imaging and swabs ordered. Patient placed back in the waiting room pending room availability and results. Medications Administered Discontinued Medications Generic Name Dose Route Start Last Admin Trade Name Isa PRN Reason Stop Dose Admin Ketorolac Tromethamine 15 mg 09/06/23 16:48 09/06/23 16:55 Ketorolac Tromethamine 15 Mg/Ml Vial IM 09/06/23 16:49 15 mg ONCE ONE Administration Medical Decision Making Medical Decision Making [facility] Narrative: Patient is a 38 year old assigned male at with no reported medical history presenting to the emergency department today with a headache and a cough. Patient's physical exam was unremarkable. Patient's chest x-ray showed no acute process. Patient's COVID-19/RSV/Influenza and strep swabs were negative. I explained my physical exam findings as well as all test results to the patient. I answered all questions asked by the patient. I stressed the importance of the patient taking his medication as prescribed. I stressed the importance of the patient following up with his primary care provider. I stressed the importance of the patient returning to the emergency department immediately if his symptoms were to worsen or if he were to develop any dizziness, shortness of breath, difficulty breathing, chest pain, blurry vision, loss of vision, nausea, vomiting, abdominal pain, fever, chills, back pain, or any other complaints. Patient verbalized agreement and understanding with this treatment plan and discharge. Differential Diagnosis Differential Diagnoses: The differential diagnosis associated with the presentation includes Headache Cough COVID-19 RSV Influenza Strep pharyngitis URI Viral illness Admission/Observation Consideration of admission/observation: Escalation of care including admission/observation considered Patient would have been admitted to the hospital had his work up had any findings where hospital admission was appropriate and his clinical presentation warranted hospital admission. Lab Data [facility] Lab Attestation statement: I reviewed the patient's lab results. My interpretation of these studies and their corresponding values is that they are grossly normal. Labs: Lab Results 09/06/23 Range/Units 14:28 Influenza Type A (PCR) NEGATIVE (Negative) Influenza Type B (PCR) NEGATIVE (Negative) RSV RNA Qual (PCR) NEGATIVE (Negative) SARS-CoV-2 RNA (RT-PCR) NEGATIVE (Negative) S. pyogenes GrpA CORAL Negative (Negative) Independent Interpretation I performed an independent interpretation of an: Plain X-Ray Interpretation: My interpretation is in agreement with the radiologist's impression of this imaging study. EXAMINATION: XR CHEST CLINICAL INFORMATION: Cough. COMPARISON: Chest x-ray November 16, 2022 TECHNIQUE: 2 views of the chest were obtained. FINDINGS: No significant abnormality is noted involving the heart, lungs, mediastinum, bony thorax or soft tissues. XR/XR chest 2V IMPRESSION: Unremarkable examination. Dictated By: Ray Arellano MD Signed By: Electronically signed by Ray Arellano MD 09/06/23 9987 Radiology Impression Discussion of test interpretation with radiology: I have reviewed the radiologist's reading. Prescription Management I considered prescription management with: Pain Medication (patient prescribed pain medication for his headache.) Discharge Plan Discharge Clinical Impression: Upper respiratory infection Patient Disposition: Home, Self-Care Instructions: Upper Respiratory Infection (DC) Additional Instructions: Follow up with your primary care provider. Return to the emergency department immediately if your symptoms worsen or if you develop any dizziness, shortness of breath, difficulty breathing, chest pain, blurry vision, loss of vision, nausea, vomiting, abdominal pain, fever, chills, back pain, or any other complaints. Joselin un seguimiento con churchill proveedor de atenci?n primaria. Regrese al departamento de emergencias inmediatamente si vance s?ntomas empeoran o si presenta mareos, dificultad para respirar, dificultad para respirar, dolor en el pecho, visi?n borrosa, p?rdida de la visi?n, n?useas, v?mitos, dolor abdominal, fiebre, escalofr?os, dolor de espalda o cualquier otras quejas. Prescriptions: New benzonatate 100 mg capsule 100 mg PO BID PRN (Reason: cough) 7 Days Qty: 14 0RF naproxen 500 mg tablet 500 mg PO BID 7 Days Qty: 14 0RF No Action doxycycline hyclate 100 mg capsule 100 mg PO BID 10 Days Qty: 20 0RF ibuprofen 600 mg tablet 600 mg PO QID PRN (Reason: fever or pain) Qty: 20 0RF acetaminophen 650 mg tablet extended release 650 mg PO Q8H PRN (Reason: fever or pain) Qty: 20 0RF Rx Instructions: Alternate doses with ibuprofen cephalexin 500 mg capsule 500 mg PO QID 7 Days Qty: 28 0RF doxycycline hyclate 100 mg capsule 100 mg PO BID 7 Days Qty: 14 0RF naproxen 500 mg tablet 500 mg PO BID PRN (Reason: pain) 10 Days Qty: 20 0RF cephalexin 500 mg capsule 500 mg PO TID 7 Days Qty: 21 0RF doxycycline hyclate 100 mg tablet 100 mg PO Q12H 7 Days Qty: 14 0RF oxycodone-acetaminophen [Percocet] 5-325 mg tablet 1 tab PO Q4H PRN (Reason: pain) Qty: 14 0RF Rx Instructions: Partial Fill upon patient request. oxycodone 5 mg tablet 5 mg PO Q6H PRN (Reason: pain) Qty: 10 0RF Rx Instructions: Partial Fill upon patient request. docusate sodium [Colace] 100 mg capsule 100 mg PO BID Qty: 60 0RF doxycycline hyclate 100 mg capsule 100 mg PO BID 7 Days Qty: 14 0RF Referrals: [facility] [place] [facility] [Provider Group] (Call to establish and follow up with a primary care provider. If you already have a primary care provider, please follow up with them. Llame para establecer y realizar un seguimiento con un proveedor de atenci?n primaria. Si ya tiene un proveedor de atenci?n primaria, joselin un seguimiento con ?l.) [facility] [place] [facility] [Provider Group] (Call to establish and follow up with a primary care provider. If you already have a primary care provider, please follow up with them. Llame para establecer y realizar un seguimiento con un proveedor de atenci?n primaria. Si ya tiene un proveedor de atenci?n primaria, joselin un seguimiento con ?l.) [facility] [Provider Group] (Call to establish and follow up with a primary care provider. If you already have a primary care provider, please follow up with them. Llame para establecer y realizar un seguimiento con un proveedor de atenci?n primaria. Si ya tiene un proveedor de atenci?n primaria, joselin un seguimiento con ?l.) Interventions: ED Discharge Assessment Last Done: 09/06/23 17:04 Discharge Date/Time: 09/06/23 17:04 Print Language: Guatemalan
[2023-09-06 14:22] VITALS: BP 121/89; PULSE 92; RESP 19; TEMP 36.6; O2SAT 98; BMI 36.9
[2023-09-06 14:46] LABS: IDNOW Serial# 6674DD1D; Strep A Nucleic Acid Negative (Negative)
[2023-09-06 15:11] LABS: Influenza A PCR NEGATIVE (Negative); Influenza B PCR NEGATIVE (Negative); Resp Syncy Virus RNA Qual PCR NEGATIVE (Negative); SARS COV2 PCR INHOUSE NEGATIVE (Negative)
[2023-09-06] MEDS: Ketorolac Tromethamine 15 MG/ML VIAL IM (16:55)
--- NOTE | 2023-09-06 17:02 | PC.NURSE ---
PT WAS REASSESSED IN TRIAGE BY PROVIDER. WAS MEDICATED CHARTED, AGREES TO DISCHARGE PLAN
== END 2023-09-06 17:04 | disposition home or self-care (01) ==
LOC: HO.ED 16:52
PROVIDERS: Physician Assistant Medical; Emergency Provider Emergency Medicine
DX: J06.9 Acute upper respiratory infection, unspecified (principal); R51.9 Headache, unspecified; R05.9 Cough, unspecified; Z20.822 Contact with and (suspected) exposure to COVID-19; Z20.828 Contact with and (suspected) exposure to other viral communicable diseases; Z79.899 Other long term (current) drug therapy
CPT/HCPCS: 0241U; 71046; 87651; 96372; 99283; 99284; J1885

== ENCOUNTER 2023-09-15 21:38 | Emergency (ER) | payer MEDICARE, MEDICAID, SELFPAY ==
[2023-09-15 21:44] VITALS: BP 100/75; PULSE 75; RESP 16; TEMP 36.8; O2SAT 100; BMI 36.5
--- NOTE | 2023-09-16 00:39 | ED.SKABFB ---
HPI - Skin/Abscess/Foreign Bdy General Chief complaint: Skin/Abscess/Foreign Body Stated complaint: abcess inner LT thigh Time Seen by Provider: 09/16/23 00:24 Source: patient Mode of arrival: ambulatory Limitations: no limitations History of Present Illness HPI narrative: left groin swelling and pain, patient feels fluid inside it complaint: abscess/boil Onset (ago): week(s) Related Data Previous Rx's Medication Instructions Recorded doxycycline hyclate 100 mg capsule 100 mg PO BID 10 days #20 caps 07/09/21 acetaminophen 650 mg 650 mg PO Q8H PRN fever or pain 05/05/22 tablet,extended release #20 tabs ibuprofen 600 mg tablet 600 mg PO QID PRN fever or pain 05/05/22 #20 tabs cephalexin 500 mg capsule 500 mg PO QID 7 days #28 caps 06/26/22 doxycycline hyclate 100 mg capsule 100 mg PO BID 7 days #14 caps 06/26/22 naproxen 500 mg tablet 500 mg PO BID PRN pain 10 days #20 06/26/22 tabs cephalexin 500 mg capsule 500 mg PO TID 7 days #21 caps 02/06/23 doxycycline hyclate 100 mg tablet 100 mg PO Q12H 7 days #14 tabs 02/06/23 oxycodone-acetaminophen 5 mg-325 1 tab PO Q4H PRN pain #14 tabs 02/06/23 mg tablet (Percocet) docusate sodium 100 mg capsule 100 mg PO BID #60 caps 02/08/23 (Colace) oxycodone 5 mg tablet 5 mg PO Q6H PRN pain #10 tabs 02/08/23 doxycycline hyclate 100 mg capsule 100 mg PO BID 7 days #14 caps 02/09/23 benzonatate 100 mg capsule 100 mg PO BID PRN cough 7 days #14 09/06/23 caps naproxen 500 mg tablet 500 mg PO BID 7 days #14 tabs 09/06/23 Allergies Allergy/AdvReac Type Severity Reaction Status Date / Time Sulfa (Sulfonamide Allergy Severe SWELLING, Verified 09/06/23 14:22 Antibiotics) skin [SULFA (SULFONAMIDE blisters ANTIBIOTICS)] Review of Systems Review of Systems: Yes all other systems are reviewed and are negative Neurologic: Denies Sensory deficit (Neuro) PMFSH Past Medical History Medical History Anxiety Depression Social History Social History Advance Directives: No Advance Directives Information Provided: No Physical Exam Vital Signs: Vital Signs: Last Vital Signs Temp 98.2 F 09/15/23 21:44 Pulse 75 09/15/23 21:44 Resp 16 09/15/23 21:44 BP 100/75 09/15/23 21:44 Pulse Ox 100 09/15/23 21:44 O2 Del Method Room Air 09/15/23 21:44 BMI result Body Mass Index 36.5 Const: General: healthy appearing Nutritional Appearance: obese Orientation/consciousness: oriented to person and patient oriented x3 Limitations: no limitations HEENT: Head: Yes normal to inspection Ears: external ears normal General nose exam: Normal external nose present Mouth: Normal oral and palatal mucosa present and oropharynx normal Throat: Yes posterior oropharynx normal Eyes: General: appearance normal, both eyes and all related structures Neck: Other: supple Neck: Yes normal visual inspection Chest: Chest palpation & inspection: normal inspection of the chest Resp: Auscultation: clear to auscultation bilaterally Cardio: Jugular venous distension: no JVD Rate: regular rate Rhythm: regular rhythm Heart sounds: S1 normal heart sound present and S2 normal heart sound present GI: Inspection: Yes normal to inspection Palpation (GI): Soft to palpation, nontender and No hepatosplenomegaly present Auscultation: normal bowel sounds : Other: left groin with fluctuance 3cm General: Yes no CVA tenderness Back/Spine/Pelvis: Back: no CVA tenderness Skin: General skin exam: no rashes or lesions noted Neuro: General: oriented to person and patient oriented x3 Cranial nerves: Yes CN's II-XII intact bilaterally Motor exam (neuro): 5/5 motor strength present throughout Sensory Exam: No Sensory deficit (Neuro) Extrem: General: Yes normal to inspection Psych: Appearance: grossly normal Course Reevaluation(s) Reevaluation #1: abscess drained packing placed Time: 01:01 Medical Decision Making Differential Diagnosis Differential Diagnoses: The differential diagnosis associated with the presentation includes (abscess, cyst, cellulitis) Prescription Management I considered prescription management with: Antibiotic (no surrounding cellulitis so no antibiotics given) Procedures Procedure Narrative Procedure Narrative: Patient prepped and draped in sterile fashion. !% epi with lidocaine used for anesthesia. 11 blade used, pus removed, packing placed. Patient tolerated procedure well Discharge Plan Discharge Clinical Impression: Abscess of skin or subcutaneous tissue Patient Disposition: Home, Self-Care Instructions: Abscess (ED), Incision and Drainage (ED) Additional Instructions: packing removal in 48 hours Prescriptions: No Action doxycycline hyclate 100 mg capsule 100 mg PO BID 10 Days Qty: 20 0RF ibuprofen 600 mg tablet 600 mg PO QID PRN (Reason: fever or pain) Qty: 20 0RF acetaminophen 650 mg tablet extended release 650 mg PO Q8H PRN (Reason: fever or pain) Qty: 20 0RF Rx Instructions: Alternate doses with ibuprofen cephalexin 500 mg capsule 500 mg PO QID 7 Days Qty: 28 0RF doxycycline hyclate 100 mg capsule 100 mg PO BID 7 Days Qty: 14 0RF naproxen 500 mg tablet 500 mg PO BID PRN (Reason: pain) 10 Days Qty: 20 0RF cephalexin 500 mg capsule 500 mg PO TID 7 Days Qty: 21 0RF doxycycline hyclate 100 mg tablet 100 mg PO Q12H 7 Days Qty: 14 0RF oxycodone-acetaminophen [Percocet] 5-325 mg tablet 1 tab PO Q4H PRN (Reason: pain) Qty: 14 0RF Rx Instructions: Partial Fill upon patient request. oxycodone 5 mg tablet 5 mg PO Q6H PRN (Reason: pain) Qty: 10 0RF Rx Instructions: Partial Fill upon patient request. docusate sodium [Colace] 100 mg capsule 100 mg PO BID Qty: 60 0RF benzonatate 100 mg capsule 100 mg PO BID PRN (Reason: cough) 7 Days Qty: 14 0RF naproxen 500 mg tablet 500 mg PO BID 7 Days Qty: 14 0RF doxycycline hyclate 100 mg capsule 100 mg PO BID 7 Days Qty: 14 0RF Referrals: Physician,None [Primary Care Provider] - 1 week
[2023-09-16 01:08] VITALS: BP 110/72; PULSE 89; RESP 18; TEMP 36.8; O2SAT 99
== END 2023-09-16 01:12 | disposition home or self-care (01) ==
PROVIDERS: Emergency Provider Emergency Medicine
DX: L02.416 Cutaneous abscess of left lower limb (principal); R10.32 Left lower quadrant pain
CPT/HCPCS: 10060; 99284

== ENCOUNTER 2023-11-12 06:22 | Emergency (ER) | payer MEDICARE, MEDICAID, SELFPAY ==
[2023-11-12 06:53] VITALS: BP 129/87; PULSE 98; RESP 17; TEMP 37.7; O2SAT 96; BMI 37.7
--- NOTE | 2023-11-12 07:38 | ED.GENADULT ---
HPI - General Adult General Chief complaint: Nausea/Vomiting/Diarrhea Stated complaint: fever, vomiting, muscle aches Time Seen by Provider: 11/12/23 07:38 Source: patient Mode of arrival: ambulatory Limitations: no limitations History of Present Illness HPI narrative: This is a 38-year-old male presenting to the emergency department for evaluation of fatigue, malaise, body aches and pains, subjective fevers and chills, diarrhea all going on for the past 3 days, not getting better. He reports he had vomiting yesterday however that has resolved. He just does not feel well. Denies chest pain, shortness of breath, sore throat, headache, vision changes, dizziness, weakness, abdominal pain. Related Data Previous Rx's Medication Instructions Recorded doxycycline hyclate 100 mg capsule 100 mg PO BID 10 days #20 caps 07/09/21 acetaminophen 650 mg 650 mg PO Q8H PRN fever or pain 05/05/22 tablet,extended release #20 tabs ibuprofen 600 mg tablet 600 mg PO QID PRN fever or pain 05/05/22 #20 tabs cephalexin 500 mg capsule 500 mg PO QID 7 days #28 caps 06/26/22 doxycycline hyclate 100 mg capsule 100 mg PO BID 7 days #14 caps 06/26/22 naproxen 500 mg tablet 500 mg PO BID PRN pain 10 days #20 06/26/22 tabs cephalexin 500 mg capsule 500 mg PO TID 7 days #21 caps 02/06/23 doxycycline hyclate 100 mg tablet 100 mg PO Q12H 7 days #14 tabs 02/06/23 oxycodone-acetaminophen 5 mg-325 1 tab PO Q4H PRN pain #14 tabs 02/06/23 mg tablet (Percocet) docusate sodium 100 mg capsule 100 mg PO BID #60 caps 02/08/23 (Colace) oxycodone 5 mg tablet 5 mg PO Q6H PRN pain #10 tabs 02/08/23 doxycycline hyclate 100 mg capsule 100 mg PO BID 7 days #14 caps 02/09/23 benzonatate 100 mg capsule 100 mg PO BID PRN cough 7 days #14 09/06/23 caps naproxen 500 mg tablet 500 mg PO BID 7 days #14 tabs 09/06/23 Allergies Allergy/AdvReac Type Severity Reaction Status Date / Time Sulfa (Sulfonamide Allergy Severe SWELLING, Verified 11/12/23 07:03 Antibiotics) skin [SULFA (SULFONAMIDE blisters ANTIBIOTICS)] Review of Systems Review of Systems: Constitutional : No Weight loss, + Fever, + Chills, + Fatigue, + Malaise ENT/Mouth : No sore throat, No Rhinorrhea Eyes: No Eye Pain, No Swelling, No Redness Cardiovascular : No Chest Pain, No SOB, No Dyspnea on Exertion, No Orthopnea, No Edema, No Palpitations Respiratory : No Cough, No Sputum, No Wheezing Gastrointestinal : + Nausea, + Vomiting, No Diarrhea, No Constipation, No abdominal Pain, No Hematochezia, No Melena Genitourinary : No Dysuria, No Urinary Frequency, No Hematuria, Musculoskeletal : No joint pain, + Myalgias, No Joint Swelling Skin : No Skin Lesions, No rash Neuro : No Weakness, No Numbness, No Dizziness, No Headache Psych : No Anxiety/Panic, No Depression All other systems reviewed and are negative Yes all other systems are reviewed and are negative [facility] Past Medical History Attestation statement: The following information was validated with the patient. Source: old records reviewed and nursing notes reviewed Medical History Anxiety Depression Social History Social History Alcohol intake: former Smoked in Last 30 Days: No Use of substances other than those prescribed or required for medical reasons: No Advance Directives: No Advance Directives Information Provided: Yes Physical Exam ED Vital Signs: Vital Signs - 24 hr 11/12/23 06:53 11/12/23 07:41 Temperature 99.9 F 99.2 F Pulse Rate 98 94 Respiratory Rate 17 20 Blood Pressure 129/87 126/79 Pulse Oximetry 96 96 Oxygen Delivery Method Room Air Room Air BMI result Body Mass Index 37.7 vss Appearance: Alert.? Oriented X3.? No acute distress.? Head: Normocephalic, atraumatic, no step-offs or deformities Eyes: Pupils equal, round and reactive to light.? ENT: Pharynx normal.? Neck: Normal inspection.? Neck supple.? CVS: Normal heart rate and rhythm.? Pulses normal.? Respiratory: No respiratory distress.? Breath sounds normal.? Abdomen: Soft and nontender.? Skin: Skin warm and dry.? Normal skin color.? Normal skin turgor.? Extremities: No lower extremity edema.? No calf ttp. 5/5 strength to bilateral upper and lower extremities Neuro: Oriented X 3.? No motor deficit.? No sensory deficit. CN 2-12 intact Course Reevaluation(s) Reevaluation #1: Patient noted to be positive for COVID-19 likely why patient is having symptoms. Will discharge him home with supportive measures. No true indication for antiviral medicine he has had symptoms for 3 days. Educated patient on diagnosis and treatment plan, answered all question, patient verbalizes understanding. At this time patient will be discharged home, advised to return with new or worsening symptoms. Educated on worrisome signs and symptoms and when to return. At this time I feel comfortable discharge home. Time: 07:58 Medical Decision Making Medical Decision Making [facility] Narrative: 0739 38-year-old male presents with fatigue, malaise, myalgias, nausea, vomiting, diarrhea, subjective fevers and chills x3 days. Physical exam benign history and physical exam concerning for viral illness versus gastroenteritis Versus flu versus COVID versus RSV. Unlikely acute abdomen, diverticulitis, appendicitis, pancreatitis, cholecystitis. Low suspicion for metabolic derangements. Patient tolerating p.o.. Plan at this time viral testing. Differential Diagnosis Differential Diagnoses: The differential diagnosis associated with the presentation includes history and physical exam concerning for viral illness versus gastroenteritis Versus flu versus COVID versus RSV. Unlikely acute abdomen, diverticulitis, appendicitis, pancreatitis, cholecystitis. Low suspicion for metabolic derangements. Patient tolerating p.o.. Admission/Observation Consideration of admission/observation: Escalation of care including admission/observation considered [facility] Lab Data [facility] Lab Attestation statement: I reviewed the patient's lab results. Labs: Lab Results 11/12/23 Range/Units 07:22 COVID-19 (RAJIV) Positive A (Negative) COVID-19 Clin Com See Note Influenza Type A (CORAL) Negative (Negative) Influenza Type B (CORAL) Negative (Negative) Influenza A & B Note See Note Critical Care Time Critical Care Time Critical Care Time: No Discharge Plan Discharge Clinical Impression: COVID Patient Disposition: Home, Self-Care Instructions: COVID-19 (Coronavirus Disease 2019) (ED) Additional Instructions: Take your medications as prescribed. If you were prescribed antibiotics today, it is important that you take your medication to their entirety, do not skip any doses, do not finish them early. Today you tested positive for COVID-19. Take Ibuprofen or Tylenol as needed for fevers or body aches. Quarantine for 5 days and ensure you wear a mask. After 5 days you should wear a mask for 5 days after that. Practice social distancing and good hand hygiene. Drink plenty of fluids. Follow-up with your primary care provider this week. Return to the emergency department with new or worsening symptoms. In case of emergency call 911 You can purchase a pulse oximeter from your local pharmacy or grocery store, and monitor your oxygen saturation if it goes below 94% you should return to the emergency department for further evaluation. Prescriptions: No Action doxycycline hyclate 100 mg capsule 100 mg PO BID 10 Days Qty: 20 0RF ibuprofen 600 mg tablet 600 mg PO QID PRN (Reason: fever or pain) Qty: 20 0RF acetaminophen 650 mg tablet extended release 650 mg PO Q8H PRN (Reason: fever or pain) Qty: 20 0RF Rx Instructions: Alternate doses with ibuprofen cephalexin 500 mg capsule 500 mg PO QID 7 Days Qty: 28 0RF doxycycline hyclate 100 mg capsule 100 mg PO BID 7 Days Qty: 14 0RF naproxen 500 mg tablet 500 mg PO BID PRN (Reason: pain) 10 Days Qty: 20 0RF cephalexin 500 mg capsule 500 mg PO TID 7 Days Qty: 21 0RF doxycycline hyclate 100 mg tablet 100 mg PO Q12H 7 Days Qty: 14 0RF oxycodone-acetaminophen [Percocet] 5-325 mg tablet 1 tab PO Q4H PRN (Reason: pain) Qty: 14 0RF Rx Instructions: Partial Fill upon patient request. oxycodone 5 mg tablet 5 mg PO Q6H PRN (Reason: pain) Qty: 10 0RF Rx Instructions: Partial Fill upon patient request. docusate sodium [Colace] 100 mg capsule 100 mg PO BID Qty: 60 0RF benzonatate 100 mg capsule 100 mg PO BID PRN (Reason: cough) 7 Days Qty: 14 0RF naproxen 500 mg tablet 500 mg PO BID 7 Days Qty: 14 0RF doxycycline hyclate 100 mg capsule 100 mg PO BID 7 Days Qty: 14 0RF Referrals: Physician,None [Primary Care Provider] - 2 days Stand Alone Forms: Work/School Release
[2023-11-12 07:41] VITALS: BP 126/79; PULSE 94; RESP 20; TEMP 37.3; O2SAT 96
--- NOTE | 2023-11-12 07:47 | PC.NURSE ---
Alert and oriented, reports body aches, cough, n/v and diarrhea for the last 2-3 days. States has family that are also sick at homes. Reports increased urination but denies pain with urination. Denies chest pain or headache
[2023-11-12 07:48] LABS: COVID-19 Test Positive (Negative); IDNOW Serial# BCCEAD1C
[2023-11-12 07:50] LABS: IDNOW Serial# 08D9AD1C; Influenza A Negative (Negative); Influenza B2 Negative (Negative)
== END 2023-11-12 08:04 | disposition home or self-care (01) ==
PROVIDERS: Emergency Provider Emergency Medicine
DX: U07.1 COVID-19 (principal); R11.2 Nausea with vomiting, unspecified; R50.9 Fever, unspecified; M79.10 Myalgia, unspecified site
CPT/HCPCS: 87502; 87635; 99283; 99284

== ENCOUNTER 2024-02-26 02:44 | Emergency (ER) | payer MEDICARE, MEDICAID, SELFPAY ==
--- NOTE | ~2024-02-26 | XR_ITS ---
EXAMINATION: XR CHEST CLINICAL INFORMATION: Cough. COMPARISON: 09/06/2023. TECHNIQUE: Frontal view of the chest was obtained. FINDINGS: No significant abnormality is noted involving the heart, lungs, mediastinum, bony thorax or soft tissues. XR/XR chest 1V IMPRESSION: Unremarkable examination.
[2024-02-26 02:46] VITALS: BP 139/95; PULSE 130; RESP 18; TEMP 39.5; O2SAT 98; BMI 39.5
[2024-02-26 03:04] LABS: MANUAL DIFF FLAG NO
[2024-02-26 03:06] LABS: Basophils Percent Auto 0.3 % (0-2); Eosinophils Absolute Auto 0.1 X10*3/uL (0.0-0.4); Eosinophils Percent Auto 0.8 % (0-4); Hematocrit 49.3 % (42.0-52.0); Hemoglobin 16.4 g/dl (14.0-18.0); Imm Gran Abs Auto 0.04 X10*3/uL (0.00-0.03); Imm Gran Pct Auto 0.4 % (0.0-0.4); Lymphocytes Absolute Auto 1.3 X10*3/uL (1.2-4.9); Lymphocytes Percent Auto 13.8 % (20-40); Mean Corpuscular HGB Conc 33.3 g/dl (31.0-36.0); Mean Corpuscular Hemoglobin 28.7 pg (27.0-33.0); Mean Corpuscular Volume 86.2 fL (80.0-98.0); Mean Platelet Volume 10.1 fL (9.4-12.4); Monocytes Absolute Auto 1.1 X10*3/uL (0.1-1.2); Monocytes Percent Auto 11.7 % (2-11); Platelet Count 183 X10*3/uL (160-400); Red Blood Count 5.72 X10*6/uL (4.60-5.80); Red Cell Distribution Width 13.5 % (11.0-16.0); White Blood Count 9.6 X10*3/uL (4.8-10.8)
[2024-02-26] MEDS: Ibuprofen 600 MG TABLET PO (03:19)
[2024-02-26 03:28] LABS: Alanine Aminotransferase 45 U/L (0-40); Albumin Level 3.7 g/dL (3.5-5.0); Alkaline Phosphatase 62 U/L (39-117); Anion Gap 13 (12-20); Aspartate Amino Transferase 32 U/L (5-37); Bilirubin Total 0.4 mg/dL (0.0-1.0); Blood Urea Nitrogen 9 mg/dL (9-16); Calcium 9.2 mg/dL (8.4-10.2); Carbon Dioxide 28 mmol/L (22-29); Chloride 104 mmol/L (96-108); Creatinine Clr Calc Pharmacy 105.9; Estimated Glomerular Filt Rate > 60; Glucose Random 120 mg/dL (60-115); Potassium 3.7 mmol/L (3.3-5.1); Sodium 141 mmol/L (135-145); Total Protein 8.1 g/dL (6.5-8.0)
[2024-02-26 03:36] LABS: Appearance Urine Clear; Color Urine Yellow; Glucose Urine UA Negative (Negative); Leukocyte Esterase Urine Negative (Negative); Nitrite Urine Negative (Negative); Specific Gravity - Urine <= 1.005 (1.005-1.025); UMIC TRIGGER UACC YES; Urine Blood Small (1+) (Negative); Urine Ketones Negative (Negative); Urine Protein Negative (Neg-Trace)
[2024-02-26 03:42] LABS: Influenza A PCR NEGATIVE (Negative); Influenza B PCR NEGATIVE (Negative); Resp Syncy Virus RNA Qual PCR NEGATIVE (Negative); SARS COV2 PCR INHOUSE NEGATIVE (Negative)
[2024-02-26 03:45] LABS: Bacteria Urine None Seen (None Seen); Hyaline Casts Urine 0-2 /LPF (0-2); RBC Urine 0-2 /HPF (0-2); Squamous Epithelial Cell Urine 0-2 /HPF (0-2); WBC Urine 0-5 /HPF (0-5)
[2024-02-26 07:50] VITALS: BP 119/77; PULSE 97; RESP 16; TEMP 36.8; O2SAT 97
--- NOTE | 2024-02-26 07:59 | ED_ITS ---
HPI - URI/Sore Throat General Chief Complaint: Upper Respiratory Symptoms Stated Complaint: Flu like Time Seen by Provider: 02/26/24 07:26 Source: patient Mode of arrival: ambulatory History of Present Illness HPI Narrative: 38-year-old male without significant past medical history presents with 3 days cough, sore throat, mild vomiting, body aches and denies any abdominal pain/diarrhea/sick contacts. Related Data Previous Rx's ?Medication ?Instructions ?Recorded doxycycline hyclate 100 mg capsule 100 mg PO BID 10 days #20 caps 07/09/21 acetaminophen 650 mg 650 mg PO Q8H PRN fever or pain 05/05/22 tablet,extended release #20 tabs ibuprofen 600 mg tablet 600 mg PO QID PRN fever or pain 05/05/22 #20 tabs cephalexin 500 mg capsule 500 mg PO QID 7 days #28 caps 06/26/22 doxycycline hyclate 100 mg capsule 100 mg PO BID 7 days #14 caps 06/26/22 naproxen 500 mg tablet 500 mg PO BID PRN pain 10 days #20 06/26/22 tabs cephalexin 500 mg capsule 500 mg PO TID 7 days #21 caps 02/06/23 doxycycline hyclate 100 mg tablet 100 mg PO Q12H 7 days #14 tabs 02/06/23 oxycodone-acetaminophen 5 mg-325 1 tab PO Q4H PRN pain #14 tabs 02/06/23 mg tablet (Percocet) docusate sodium 100 mg capsule 100 mg PO BID #60 caps 02/08/23 (Colace) oxycodone 5 mg tablet 5 mg PO Q6H PRN pain #10 tabs 02/08/23 doxycycline hyclate 100 mg capsule 100 mg PO BID 7 days #14 caps 02/09/23 benzonatate 100 mg capsule 100 mg PO BID PRN cough 7 days #14 09/06/23 caps naproxen 500 mg tablet 500 mg PO BID 7 days #14 tabs 09/06/23 ondansetron 4 mg disintegrating 4 mg PO Q8H PRN nausea and 02/26/24 tablet vomiting 4 days #7 tabs Allergies Allergy/AdvReac Type Severity Reaction Status Date / Time Sulfa (Sulfonamide Allergy Severe SWELLING, Verified 02/26/24 02:48 Antibiotics) skin [SULFA (SULFONAMIDE blisters ANTIBIOTICS)] Review of Systems 2 Review of Systems: Pertinent positives and negatives as stated in HPI PMFSH Past Medical History Source: nursing notes reviewed Medical History Anxiety Depression Social History Social History Alcohol intake: former Physical Exam 2 Vital Signs: Vital Signs: Last Vital Signs Temp 98.2 F 02/26/24 07:50 Pulse 97 02/26/24 07:50 Resp 16 02/26/24 07:50 BP 119/77 02/26/24 07:50 Pulse Ox 97 02/26/24 07:50 O2 Del Method Room Air 02/26/24 07:50 BMI result Body Mass Index 39.5 VITAL SIGNS: Reviewed. GENERAL: Well developed, well nourished, in no acute distress. HEAD: Normocephalic/atraumatic EYES: PERRLA, EOMI EARS: Ext canals without abnormality, TMs non-bulging and non-erythematous NOSE: Nares patent bilateral OROPHARYNX: no oral lesions noted, posterior pharynx clear and non-erythematous without noted tonsillar enlargement/erythema/exudates NECK: Supple, no adenopathy LUNGS: Normal breath sounds. No adventitious sounds or accessory muscle use. SpO2<97> CARDIOVASCULAR: Regular rate and rhythm without noted murmurs ABDOMEN: Soft, non-tender, non-distended with bowel sounds. MUSCULOSKELETAL: No tenderness, deformities, or effusions noted on gross inspection. EXTREMITIES: No cyanosis, clubbing or edema. SKIN: Inspection of the skin reveals no rashes NEUROLOGIC: Alert and oriented x 4. Strength and sensation to light touch were grossly intact x 4. Medications Administered Discontinued Medications Generic Name Dose Route Start Last Admin Trade Name Freq PRN Reason Stop Dose Admin Ibuprofen 600 mg 02/26/24 02:55 02/26/24 03:19 Ibuprofen 600 Mg Tablet PO 02/26/24 02:56 600 mg ONCE ONE Administration Medical Decision Making Medical Decision Making [facility] Narrative: 38-year-old male with history and clinical presentation, DDX: Viral illness, food poisoning, gastroenteritis, no clinical suspicion for a cholecystitis/appendicitis or other intra-abdominal infection. I reviewed all investigations and hematologic indices are negative for leukocytosis/anemia/thrombocytopenia. Chemistry indices without ANDREW/electrolyte derangements there is chronically stable mild bump in ALT suspect that this may be secondary to fatty liver. Urinalysis negative for UTI. Viral testing for influenza/RSV/COVID-19 is negative. Chest x-ray negative for infiltrate or venous congestion otherwise my interpretation is in agreement with radiology's impression. After receiving Tylenol ibuprofen, patient is feeling much better as currently afebrile and not tachypneic/tachycardic and is oxygenating well on room air. Differential Diagnosis Differential Diagnoses: The differential diagnosis associated with the presentation includes Please see the discussion above Admission/Observation Consideration of admission/observation: Escalation of care including admission/observation considered Please see the discussion above Lab Data [facility] Lab Attestation statement: I reviewed the patient's lab results. Please see the discussion above 02/26/24 02:59 02/26/24 02:59 Labs: Lab Results 02/26/24 02/26/24 Range/Units 02:59 03:29 WBC 9.6 (4.8-10.8) X10*3/uL RBC 5.72 (4.60-5.80) X10*6/uL Hgb 16.4 (14.0-18.0) g/dl Hct 49.3 (42.0-52.0) % MCV 86.2 (80.0-98.0) fL MCH 28.7 (27.0-33.0) pg MCHC 33.3 (31.0-36.0) g/dl RDW 13.5 (11.0-16.0) % Plt Count 183 D (160-400) X10*3/uL MPV 10.1 (9.4-12.4) fL Immature Gran % (Auto) 0.4 (0.0-0.4) % Neut % (Auto) 73.0 (45-73) % Lymph % (Auto) 13.8 L (20-40) % [place] % (Auto) 11.7 H (2-11) % Eos % (Auto) 0.8 (0-4) % Baso % (Auto) 0.3 (0-2) % Lymph # (Auto) 1.3 (1.2-4.9) X10*3/uL [place] # (Auto) 1.1 (0.1-1.2) X10*3/uL Eos # (Auto) 0.1 (0.0-0.4) X10*3/uL Baso # (Auto) 0.0 (0.0-0.2) X10*3/uL Abs Immat Gran (auto) 0.04 H (0.00-0.03) X10*3/uL Absolute Neuts (auto) 7.0 (2.0-8.3) x10*3/uL Absolute Nucleated RBC 0.000 (0.0-0.012) X10*3/uL Nucleated RBC % (auto) 0.0 (0.0-0.2) /100WBC Sodium 141 (135-145) mmol/L Potassium 3.7 (3.3-5.1) mmol/L Chloride 104 (96-108) mmol/L Carbon Dioxide 28 (22-29) mmol/L Anion Gap 13 (12-20) BUN 9 (9-16) mg/dL Creatinine 1.19 (0.5-1.4) mg/dL Estim Creat Clear Calc 105.9 Estimated GFR > 60 Random Glucose 120 H (60-115) mg/dL Calcium 9.2 D (8.4-10.2) mg/dL Total Bilirubin 0.4 (0.0-1.0) mg/dL AST 32 (5-37) U/L ALT 45 H (0-40) U/L Alkaline Phosphatase 62 (39-117) U/L Total Protein 8.1 H (6.5-8.0) g/dL Albumin 3.7 (3.5-5.0) g/dL Urine Color Yellow Urine Appearance Clear Urine pH 7.0 (5.0-9.0) Ur Specific [place] <= 1.005 (1.005-1.025) Urine Protein Negative (Neg-Trace) mg/dL Urine Glucose (UA) Negative (Negative) mg/dL Urine Ketones Negative (Negative) mg/dL Urine Blood Small (1+) H (Negative) Urine Nitrite Negative (Negative) Ur Leukocyte Esterase Negative (Negative) Urine RBC 0-2 (0-2) /HPF Urine WBC 0-5 (0-5) /HPF Ur Squamous Epith Cells 0-2 (0-2) /HPF Urine Bacteria None Seen (None Seen) Hyaline Casts 0-2 (0-2) /LPF Influenza Type A (PCR) NEGATIVE (Negative) Influenza Type B (PCR) NEGATIVE (Negative) RSV RNA Qual (PCR) NEGATIVE (Negative) SARS-CoV-2 RNA (RT-PCR) NEGATIVE (Negative) Radiology Impression Discussion of test interpretation with radiology: I have reviewed the radiologist's reading. Radiologist Impression: Please see the discussion above External Record Review External record reviewed: Outpatient record, Prior outpatient labs and Prior outpatient radiology Critical Care Time Critical Care Time Critical Care Time: Yes Total Critical Care Time: 30 Attestation: I personally attest to this time spent taking care of the patient. Discharge Plan Discharge Clinical Impression: Viral infection, Gastroenteritis Patient Disposition: Home, Self-Care Instructions: Gastroenteritis (ED), Viral Syndrome (ED) Additional Instructions: 1. Continue to drink plenty of water and treat fevers with Tylenol/ibuprofen. 2. Follow-up with primary care doctor in the next 1-2 days. Return to the ER for any worsening symptoms. Prescriptions: New ondansetron 4 mg tablet,disintegrating 4 mg PO Q8H PRN (Reason: nausea and vomiting) 4 Days Qty: 7 0RF No Action doxycycline hyclate 100 mg capsule 100 mg PO BID 10 Days Qty: 20 0RF ibuprofen 600 mg tablet 600 mg PO QID PRN (Reason: fever or pain) Qty: 20 0RF acetaminophen 650 mg tablet extended release 650 mg PO Q8H PRN (Reason: fever or pain) Qty: 20 0RF Rx Instructions: Alternate doses with ibuprofen cephalexin 500 mg capsule 500 mg PO QID 7 Days Qty: 28 0RF doxycycline hyclate 100 mg capsule 100 mg PO BID 7 Days Qty: 14 0RF naproxen 500 mg tablet 500 mg PO BID PRN (Reason: pain) 10 Days Qty: 20 0RF cephalexin 500 mg capsule 500 mg PO TID 7 Days Qty: 21 0RF doxycycline hyclate 100 mg tablet 100 mg PO Q12H 7 Days Qty: 14 0RF oxycodone-acetaminophen [Percocet] 5-325 mg tablet 1 tab PO Q4H PRN (Reason: pain) Qty: 14 0RF Rx Instructions: Partial Fill upon patient request. oxycodone 5 mg tablet 5 mg PO Q6H PRN (Reason: pain) Qty: 10 0RF Rx Instructions: Partial Fill upon patient request. docusate sodium [Colace] 100 mg capsule 100 mg PO BID Qty: 60 0RF benzonatate 100 mg capsule 100 mg PO BID PRN (Reason: cough) 7 Days Qty: 14 0RF naproxen 500 mg tablet 500 mg PO BID 7 Days Qty: 14 0RF doxycycline hyclate 100 mg capsule 100 mg PO BID 7 Days Qty: 14 0RF Stand Alone Forms: Work/School Release Print Language: Greenlandic
[2024-02-26 08:14] VITALS: BP 119/77; PULSE 97; RESP 16; TEMP 36.8; O2SAT 97
== END 2024-02-26 08:15 | disposition home or self-care (01) ==
PROVIDERS: Emergency Provider Student in an Organized Health Care Education/Training Program
DX: J02.9 Acute pharyngitis, unspecified (principal); K52.9 Noninfective gastroenteritis and colitis, unspecified; B34.9 Viral infection, unspecified; R05.9 Cough, unspecified; R11.10 Vomiting, unspecified; M79.10 Myalgia, unspecified site; Z11.52 Encounter for screening for COVID-19; Z20.822 Contact with and (suspected) exposure to COVID-19; Z79.899 Other long term (current) drug therapy
CPT/HCPCS: 0241U; 71045; 80053; 81001; 85025; 99283

== ENCOUNTER 2024-03-31 01:06 | Emergency (ER) | payer MEDICARE, MEDICAID, SELFPAY ==
--- NOTE | ~2024-03-31 | US_ITS ---
EXAMINATION: US SCROTUM CLINICAL INFORMATION: Painful lump.. COMPARISON: None available. TECHNIQUE: A sonogram of the scrotum was performed assessing akbar-scale appearance and color Doppler flow. Spectral Doppler analysis of the arterial and venous flow were performed in the testes bilaterally. FINDINGS: RIGHT: Right testicle measures 4.8 x 1.7 x 3.1 cm, volume 13.3 mL. There are two small cysts within the periphery of the right testicle measuring 3 mm. No solid focal testicular parenchymal lesions are visualized. Spectral Doppler analysis of the arterial and venous flow is normal in the right testis. There is a 3 mm right epididymal head cyst. No right hydrocele or varicocele is seen. Right epididymal Doppler flow is normal. LEFT: Left testicle measures 4.1 x 1.9 x 3.0 cm, volume 12.6 mL. No focal testicular parenchymal lesions are visualized. Spectral Doppler analysis of the arterial and venous flow is normal in the left testis. There is a 4 mm left epididymal head cyst. No left hydrocele or varicocele is seen. Left epididymal Doppler flow is normal. There is a 3.1 x 2.1 x 1.9 cm low echogenicity structure/collection within the right scrotum in the region of pain. US/US scrotum doppler IMPRESSION: 1. There is a 3.1 x 2.1 x 1.9 cm low echogenicity structure/collection within the right scrotum in the region of pain. This is nonspecific and could represent an abscess.. 2. There are two small cysts within the periphery of the right testicle measuring 3 mm. 3. There are small bilateral epididymal head cysts.
--- NOTE | ~2024-03-31 | US_ITS ---
EXAMINATION: US SCROTUM CLINICAL INFORMATION: Painful lump.. COMPARISON: None available. TECHNIQUE: A sonogram of the scrotum was performed assessing akbar-scale appearance and color Doppler flow. Spectral Doppler analysis of the arterial and venous flow were performed in the testes bilaterally. FINDINGS: RIGHT: Right testicle measures 4.8 x 1.7 x 3.1 cm, volume 13.3 mL. There are two small cysts within the periphery of the right testicle measuring 3 mm. No solid focal testicular parenchymal lesions are visualized. Spectral Doppler analysis of the arterial and venous flow is normal in the right testis. There is a 3 mm right epididymal head cyst. No right hydrocele or varicocele is seen. Right epididymal Doppler flow is normal. LEFT: Left testicle measures 4.1 x 1.9 x 3.0 cm, volume 12.6 mL. No focal testicular parenchymal lesions are visualized. Spectral Doppler analysis of the arterial and venous flow is normal in the left testis. There is a 4 mm left epididymal head cyst. No left hydrocele or varicocele is seen. Left epididymal Doppler flow is normal. There is a 3.1 x 2.1 x 1.9 cm low echogenicity structure/collection within the right scrotum in the region of pain. US/US scrotum IMPRESSION: 1. There is a 3.1 x 2.1 x 1.9 cm low echogenicity structure/collection within the right scrotum in the region of pain. This is nonspecific and could represent an abscess.. 2. There are two small cysts within the periphery of the right testicle measuring 3 mm. 3. There are small bilateral epididymal head cysts.
[2024-03-31 01:20] VITALS: BP 115/76; PULSE 92; RESP 18; O2SAT 98; BMI 39.1
[2024-03-31 02:28] VITALS: BP 105/51; PULSE 77; RESP 17; TEMP 36.7; O2SAT 96
--- NOTE | 2024-03-31 03:57 | ED.MALEGU ---
HPI - Male Genitourinary General Chief complaint: Urogenital-Male Stated complaint: lump in testicle Time Seen by Provider: 03/31/24 03:15 Source: patient Mode of arrival: ambulatory Limitations: no limitations History of Present Illness HPI Narrative: 38 yo male with no PMH states he does not have diabetes reports painful lump on R scrotum x 3 years that is now worse no fevers, weight loss, abdominal pain, dysuria. He states it hurst more now has never had it looked at. MD Complaint: testicle pain Onset (ago): year(s) (3) Duration: constant Location: right testicle Severity: moderate Quality: aching Relieving factors: none Exacerbating factors: palpation Associated symptoms: Reports denies other symptoms Related Data Previous Rx's ?Medication ?Instructions ?Recorded doxycycline hyclate 100 mg capsule 100 mg PO BID 10 days #20 caps 07/09/21 acetaminophen 650 mg 650 mg PO Q8H PRN fever or pain 05/05/22 tablet,extended release #20 tabs ibuprofen 600 mg tablet 600 mg PO QID PRN fever or pain 05/05/22 #20 tabs cephalexin 500 mg capsule 500 mg PO QID 7 days #28 caps 06/26/22 doxycycline hyclate 100 mg capsule 100 mg PO BID 7 days #14 caps 06/26/22 naproxen 500 mg tablet 500 mg PO BID PRN pain 10 days #20 06/26/22 tabs cephalexin 500 mg capsule 500 mg PO TID 7 days #21 caps 02/06/23 doxycycline hyclate 100 mg tablet 100 mg PO Q12H 7 days #14 tabs 02/06/23 oxycodone-acetaminophen 5 mg-325 1 tab PO Q4H PRN pain #14 tabs 02/06/23 mg tablet (Percocet) docusate sodium 100 mg capsule 100 mg PO BID #60 caps 02/08/23 (Colace) oxycodone 5 mg tablet 5 mg PO Q6H PRN pain #10 tabs 02/08/23 doxycycline hyclate 100 mg capsule 100 mg PO BID 7 days #14 caps 02/09/23 benzonatate 100 mg capsule 100 mg PO BID PRN cough 7 days #14 09/06/23 caps naproxen 500 mg tablet 500 mg PO BID 7 days #14 tabs 09/06/23 ondansetron 4 mg disintegrating 4 mg PO Q8H PRN nausea and 02/26/24 tablet vomiting 4 days #7 tabs cephalexin 500 mg capsule 500 mg PO QID 7 days #28 caps 03/31/24 doxycycline hyclate 100 mg capsule 100 mg PO BID 7 days #14 caps 03/31/24 hydrocodone 5 mg-acetaminophen 325 1 tab PO Q6H PRN pain #10 tabs 03/31/24 mg tablet Allergies Allergy/AdvReac Type Severity Reaction Status Date / Time Sulfa (Sulfonamide Allergy Severe SWELLING, Verified 03/31/24 01:22 Antibiotics) skin [SULFA (SULFONAMIDE blisters ANTIBIOTICS)] Review of Systems Review of Systems: Constitutional : No Fever, No Chills, No Fatigue ENT/Mouth : No sore throat, No Rhinorrhea Eyes: No Eye Pain, No Swelling, No Redness Cardiovascular : No Chest Pain, No SOB, No Dyspnea on Exertion Respiratory : No Cough, No Sputum Gastrointestinal : No Nausea, No Vomiting, No Diarrhea, No abdominal Pain Genitourinary : No Dysuria, No Urinary Frequency, No Hematuria, pos testicular pain Musculoskeletal : No joint pain, No Myalgias, No Joint Swelling Skin : No Skin Lesions, No rash Neuro : No Weakness, No Numbness, No Dizziness, no Headache Psych : No Anxiety/Panic, No Depression All other systems reviewed and are negative [facility] Past Medical History Attestation statement: The following information was validated with the patient. Source: old records reviewed Medical History Anxiety Depression Social History Social History Alcohol intake: former Advance Directives: No Advance Directives Information Provided: Yes Do you have a plan to hurt others: No Plan Physical Exam Vital Signs: Vital Signs: Last Vital Signs Temp 98.8 F 03/31/24 04:56 Pulse 61 03/31/24 05:03 Resp 18 03/31/24 04:56 BP 112/63 03/31/24 05:03 Pulse Ox 98 03/31/24 04:56 O2 Del Method Room Air 03/31/24 04:56 BMI result Body Mass Index 39.1 Appearance: Alert. Oriented X3. No acute distress. Eyes: Pupils equal, round and reactive to light. ENT: Pharynx normal. Neck: Normal inspection. Neck supple. CVS: Normal heart rate and rhythm. Pulses normal. Respiratory: No respiratory distress. Breath sounds normal. Abdomen: Soft and nontender. : scrotal firm lesion not fluctuant felt on R testicle the scrotal skin is normal no erythema no warmth, L groin I feel an irregular mass as well but does not involve testicle or scrotum Skin: Skin warm and dry. Normal skin color. Normal skin turgor. Extremities: No lower extremity edema. No calf ttp Neuro: Oriented X 3. No motor deficit. No sensory deficit. Medical Decision Making Medical Decision Making MDM Narrative: 38 yo male here with c/o R testicular mass now painful he denies systemic symptoms at this time will obtain US to evaluate the skin overlying the area is not cellulitic. He denies DM. Differential Diagnosis Differential Diagnoses: The differential diagnosis associated with the presentation includes mass, abscess Admission/Observation Consideration of admission/observation: Escalation of care including admission/observation considered clinically not consistent with abscess will hold off I+D no erythema no warmth present x 3 years will start on cephalexin and refer to urology Independent Interpretation I performed an independent interpretation of an: Ultrasound (cysts) Radiology Impression Discussion of test interpretation with radiology: I have reviewed the radiologist's reading. External Record Review External record reviewed: Inpatient record Prescription Management I considered prescription management with: Pain Medication and Antibiotic Discharge Plan Discharge Clinical Impression: Testicular lesion Patient Disposition: Home, Self-Care Instructions: Testicle Pain (ED) Additional Instructions: CALL UROLOGIST FOR APPOINTMENT return for worsening pain, fevers, swelling, redness or any other concerns. finish antibiotics. wear tight supportive underwear Prescriptions: New doxycycline hyclate 100 mg capsule 100 mg PO BID 7 Days Qty: 14 0RF hydrocodone-acetaminophen 5-325 mg tablet 1 tab PO Q6H PRN (Reason: pain) Qty: 10 0RF Rx Instructions: partial fill okay; Partial Fill upon patient request. cephalexin 500 mg capsule 500 mg PO QID 7 Days Qty: 28 0RF No Action doxycycline hyclate 100 mg capsule 100 mg PO BID 10 Days Qty: 20 0RF ibuprofen 600 mg tablet 600 mg PO QID PRN (Reason: fever or pain) Qty: 20 0RF acetaminophen 650 mg tablet extended release 650 mg PO Q8H PRN (Reason: fever or pain) Qty: 20 0RF Rx Instructions: Alternate doses with ibuprofen cephalexin 500 mg capsule 500 mg PO QID 7 Days Qty: 28 0RF doxycycline hyclate 100 mg capsule 100 mg PO BID 7 Days Qty: 14 0RF naproxen 500 mg tablet 500 mg PO BID PRN (Reason: pain) 10 Days Qty: 20 0RF cephalexin 500 mg capsule 500 mg PO TID 7 Days Qty: 21 0RF doxycycline hyclate 100 mg tablet 100 mg PO Q12H 7 Days Qty: 14 0RF oxycodone-acetaminophen [Percocet] 5-325 mg tablet 1 tab PO Q4H PRN (Reason: pain) Qty: 14 0RF Rx Instructions: Partial Fill upon patient request. oxycodone 5 mg tablet 5 mg PO Q6H PRN (Reason: pain) Qty: 10 0RF Rx Instructions: Partial Fill upon patient request. docusate sodium [Colace] 100 mg capsule 100 mg PO BID Qty: 60 0RF benzonatate 100 mg capsule 100 mg PO BID PRN (Reason: cough) 7 Days Qty: 14 0RF naproxen 500 mg tablet 500 mg PO BID 7 Days Qty: 14 0RF doxycycline hyclate 100 mg capsule 100 mg PO BID 7 Days Qty: 14 0RF ondansetron 4 mg tablet,disintegrating 4 mg PO Q8H PRN (Reason: nausea and vomiting) 4 Days Qty: 7 0RF Print Language: French
[2024-03-31 04:56] VITALS: BP 106/61; PULSE 63; RESP 18; TEMP 37.1; O2SAT 98
[2024-03-31 05:03] VITALS: BP 112/63; PULSE 61
[2024-03-31] MEDS: Ibuprofen 600 MG TABLET PO (05:52)
[2024-03-31 05:56] VITALS: BP 112/63; PULSE 61; RESP 18; TEMP 37.2; O2SAT 100
== END 2024-03-31 05:58 | disposition home or self-care (01) ==
PROVIDERS: Emergency Provider Emergency Medicine
DX: N44.2 Benign cyst of testis (principal); N50.3 Cyst of epididymis; R22.30 Localized swelling, mass and lump, unspecified upper limb; N50.811 Right testicular pain; N50.89 Other specified disorders of the male genital organs
CPT/HCPCS: 76870; 93975; 99283; 99284

== ENCOUNTER 2024-08-25 18:18 | Emergency (ER) | payer MEDICARE, MEDICAID, SELFPAY ==
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
[2024-08-25 18:27] VITALS: BP 109/88; PULSE 110; RESP 20; TEMP 36.7; O2SAT 100; BMI 36.5
[2024-08-25 18:32] LABS: MANUAL DIFF FLAG NO
[2024-08-25 18:41] LABS: Basophils Absolute Auto 0.1 X10*3/uL (0.0-0.2); Basophils Percent Auto 0.7 % (0-2); Eosinophils Absolute Auto 0.1 X10*3/uL (0.0-0.4); Eosinophils Percent Auto 0.8 % (0-4); Hematocrit 46.9 % (42.0-52.0); Hemoglobin 14.9 g/dl (14.0-18.0); Imm Gran Abs Auto 0.03 X10*3/uL (0.00-0.03); Imm Gran Pct Auto 0.2 % (0.0-0.4); Lymphocytes Percent Auto 40.2 % (20-40); Mean Corpuscular HGB Conc 31.8 g/dl (31.0-36.0); Mean Corpuscular Hemoglobin 28.5 pg (27.0-33.0); Mean Corpuscular Volume 89.8 fL (80.0-98.0); Mean Platelet Volume 10.7 fL (9.4-12.4); Monocytes Absolute Auto 1.2 X10*3/uL (0.1-1.2); Monocytes Percent Auto 9.3 % (2-11); Neutrophils Absolute Auto 6.1 x10*3/uL (2.0-8.3); Neutrophils Percent Auto 48.8 % (45-73); Platelet Count 258 X10*3/uL (160-400); Red Blood Count 5.22 X10*6/uL (4.60-5.80); Red Cell Distribution Width 13.3 % (11.0-16.0); White Blood Count 12.4 X10*3/uL (4.8-10.8)
[2024-08-25 18:45] VITALS: RESP 18
[2024-08-25] MEDS: fentaNYL citrate/PF 100 MCG/2 ML VIAL IVPUSH ×2 (18:45→19:25)
[2024-08-25 18:47] LABS: INTERNATIONAL NORM RATIO 1.1 (0.9-1.1); Prothrombin Time 12.6 SEC (10.9-12.4)
[2024-08-25] MEDS: ondansetron HCL 4 MG/2 ML VIAL IVPUSH (18:47)
[2024-08-25] MEDS: 0.9 % Sodium Chloride 1,000 ML 999 ML IV ×2 (18:48)
[2024-08-25] MEDS: Piperacillin Sodium/Tazobactam 4.5 GM in 0.9 % Sodium Chloride 100 ML IV (18:48)
[2024-08-25] MEDS: iohexoL 350 MG/ML 100 ML INFUS..BTL 85 ML IV (18:51)
--- NOTE | 2024-08-25 19:00 | PC.NURSE ---
Report given to Karen Tai RN
[2024-08-25 19:01] LABS: Alanine Aminotransferase 33 U/L (0-40); Albumin Level 3.9 g/dL (3.5-5.0); Alkaline Phosphatase 52 U/L (39-117); Anion Gap 20 (12-20); Aspartate Amino Transferase 30 U/L (5-37); Bilirubin Total 0.5 mg/dL (0.0-1.0); Blood Urea Nitrogen 13 mg/dL (9-16); Carbon Dioxide 25 mmol/L (22-29); Chloride 110 mmol/L (96-108); Creatinine Clr Calc Pharmacy 82.6; Estimated Glomerular Filt Rate 54; Glucose Random 145 mg/dL (60-115); Potassium 3.9 mmol/L (3.3-5.1); Sodium 151 mmol/L (135-145); Total Protein 7.8 g/dL (6.5-8.0)
[2024-08-25 19:21] VITALS: BP 108/62; PULSE 92; RESP 14; TEMP 36.6
--- NOTE | 2024-08-25 19:28 | PC.NURSE ---
2 UNITS RBCS EMEGRENTLY RELEASED BY BLOOD BANK PRIOR TO PT DEPARTURE TO [facility] EMERGENCY TRAUMA TRANSFER 2 UNITS RBCS BEGAN AT 1916 VERIFIED WITH 2 RN'S HARPAL Keller AND BARBARA Jimenez PT LEFT VIA AMBULANCE TO [facility] AT 19:30 ATTEMPTING TO CALL [facility] ED FOR NURSE TO NURSE REPORT NOW
--- NOTE | 2024-08-25 19:32 | PC.NURSE ---
attempted to call [facility] ED x 3
--- NOTE | 2024-08-25 19:41 | PC.NURSE ---
BLOOD TRANSFUSION ENDED IN [facility] PT LEFT WITH BLOOD PRODUCTS RUNNING VIA ALS TRANSPORT TO [facility] STARTED AT 191 AND LEFT WITH AMBULANCE AT 193
[2024-08-25 19:42] VITALS: BP 108/62; PULSE 92; RESP 14; TEMP 36.6
== END 2024-08-25 19:30 | disposition short-term general hospital (02) ==
PROVIDERS: Emergency Provider Internal Medicine
DX: S31.110A Laceration without foreign body of abdominal wall, right upper quadrant without penetration into peritoneal cavity, initial encounter (principal); R10.11 Right upper quadrant pain; R00.0 Tachycardia, unspecified; W26.0XXA Contact with knife, initial encounter; Y93.89 Activity, other specified; Y92.89 Other specified places as the place of occurrence of the external cause; Y99.8 Other external cause status; Z79.899 Other long term (current) drug therapy
CPT/HCPCS: 36415; 36430; 71260; 74177; 80053; 85025; 85610; 85730; 86850; 86900; 86901; 86920; 96365; 96375; 96376; 99285; 99291; J2405; J2543; J3010; P9016; Q9967

== ENCOUNTER 2024-09-24 14:26 | Emergency (ER) | payer MEDICARE, MEDICAID, SELFPAY ==
--- NOTE | ~2024-09-24 | CT_ITS ---
EXAMINATION: CT ABDOMEN AND PELVIS WITH CONTRAST CLINICAL INFORMATION: Abdominal pain. COMPARISON: August 25, 2024 TECHNIQUE: Multidetector volumetric images were obtained from the superior aspect of the liver through the pubic symphysis following administration 85 mL of Omnipaque 350 intravenous contrast. Sagittal and coronal reformatted images were obtained on the technologist's workstation. Oral contrast: No This CT examination was performed using dose optimization techniques as appropriate, variously including the following: *Automated exposure control *Adjustment of mA and/or kV according to patient size (this includes techniques or standardized protocols for targeted exams where dose is matched to indication/reason for exam; i.e. extremities or head) *Use of iterative reconstruction technique DLP: 901 mGy-cm FINDINGS: LUNG BASES: Minimal atelectasis left lung base. LIVER, GALLBLADDER, AND BILIARY TREE: The liver is normal in size, shape, and attenuation. No focal hepatic lesion or biliary ductal dilatation is present. The gallbladder is unremarkable with no evidence of radiopaque gallstones, gallbladder wall thickening, or obvious pericholecystic inflammatory changes. PANCREAS: Unremarkable. SPLEEN: Unremarkable. ADRENAL GLANDS: Unremarkable. KIDNEYS AND URETERS: The kidneys are normal in size, shape, and attenuation. No hydronephrosis, hydroureter, or calculi seen. No perinephric stranding. BLADDER: Unremarkable. GASTROINTESTINAL TRACT: Diverticula of the descending colon without evidence for acute diverticulitis. The appendix is visualized and is within normal limits. ABDOMINAL WALL: There is a midline surgical scar with associated infiltrative change. LYMPH NODES: There are multiple nonspecific small retroperitoneal lymph nodes VASCULAR: Unremarkable. PELVIC VISCERA: Unremarkable. OSSEOUS STRUCTURES: Unremarkable. CT/CT abdomen pelvis w IV con IMPRESSION: 1. No acute intra-abdominal pathology. 2. Diverticula of the descending colon without evidence for acute diverticulitis. Fleischner guidelines were followed. Electronically signed by: Norbert Bean MD 09/25/2024 04:20 AM TON
[2024-09-24 14:55] VITALS: BP 118/69; PULSE 76; RESP 16; TEMP 36.8; O2SAT 98; BMI 35.9
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
[2024-09-24 15:50] LABS: MANUAL DIFF FLAG NO
[2024-09-24 15:52] LABS: Basophils Absolute Auto 0.1 X10*3/uL (0.0-0.2); Basophils Percent Auto 0.7 % (0-2); Eosinophils Absolute Auto 0.2 X10*3/uL (0.0-0.4); Eosinophils Percent Auto 1.9 % (0-4); Hematocrit 39.9 % (42.0-52.0); Hemoglobin 12.9 g/dl (14.0-18.0); Imm Gran Abs Auto 0.02 X10*3/uL (0.00-0.03); Imm Gran Pct Auto 0.2 % (0.0-0.4); Lymphocytes Absolute Auto 2.9 X10*3/uL (1.2-4.9); Lymphocytes Percent Auto 35.3 % (20-40); Mean Corpuscular HGB Conc 32.3 g/dl (31.0-36.0); Mean Corpuscular Hemoglobin 27.9 pg (27.0-33.0); Mean Corpuscular Volume 86.4 fL (80.0-98.0); Mean Platelet Volume 10.2 fL (9.4-12.4); Monocytes Absolute Auto 0.8 X10*3/uL (0.1-1.2); Monocytes Percent Auto 9.7 % (2-11); Neutrophils Absolute Auto 4.3 x10*3/uL (2.0-8.3); Neutrophils Percent Auto 52.2 % (45-73); Platelet Count 217 X10*3/uL (160-400); Red Blood Count 4.62 X10*6/uL (4.60-5.80); Red Cell Distribution Width 14.6 % (11.0-16.0); White Blood Count 8.2 X10*3/uL (4.8-10.8)
[2024-09-24 16:19] LABS: Alanine Aminotransferase 42 U/L (0-40); Alkaline Phosphatase 55 U/L (39-117); Anion Gap 10 (12-20); Aspartate Amino Transferase 36 U/L (5-37); Bilirubin Direct 0.1 mg/dL (0.0-0.5); Bilirubin Total 0.3 mg/dL (0.0-1.0); Blood Urea Nitrogen 11 mg/dL (9-16); Calcium 9.4 mg/dL (8.4-10.2); Carbon Dioxide 27 mmol/L (22-29); Chloride 108 mmol/L (96-108); Creatinine Clr Calc Pharmacy 143.1; Estimated Glomerular Filt Rate > 60; Glucose Random 100 mg/dL (60-115); Lipase 16 U/L (8-78); Magnesium 2.1 mg/dL (1.6-2.6); Potassium 3.7 mmol/L (3.3-5.1); Sodium 141 mmol/L (135-145); Total Protein 7.9 g/dL (6.5-8.0)
[2024-09-24 18:51] VITALS: BP 128/73; PULSE 60; RESP 16; TEMP 36.9; O2SAT 99
[2024-09-24 21:22] VITALS: BP 107/53; PULSE 57; RESP 16; TEMP 36.9; O2SAT 99
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
[2024-09-24 22:03] LABS: OBS Int Ctl Valid YES; OBS1 POSITIVE (NEGATIVE)
[2024-09-24] MEDS: iohexoL 350 MG/ML 100 ML INFUS..BTL IV (22:35)
[2024-09-25 00:08] LABS: Basophils Absolute Auto 0.1 X10*3/uL (0.0-0.2); Basophils Percent Auto 0.7 % (0-2); Eosinophils Absolute Auto 0.2 X10*3/uL (0.0-0.4); Eosinophils Percent Auto 2.3 % (0-4); Hemoglobin 13.1 g/dl (14.0-18.0); Imm Gran Abs Auto 0.01 X10*3/uL (0.00-0.03); Imm Gran Pct Auto 0.1 % (0.0-0.4); Lymphocytes Absolute Auto 3.4 X10*3/uL (1.2-4.9); Lymphocytes Percent Auto 40.8 % (20-40); Mean Corpuscular Hemoglobin 27.8 pg (27.0-33.0); Mean Corpuscular Volume 86.9 fL (80.0-98.0); Mean Platelet Volume 10.3 fL (9.4-12.4); Monocytes Absolute Auto 0.7 X10*3/uL (0.1-1.2); Monocytes Percent Auto 8.3 % (2-11); Neutrophils Percent Auto 47.8 % (45-73); Platelet Count 211 X10*3/uL (160-400); Red Blood Count 4.72 X10*6/uL (4.60-5.80); Red Cell Distribution Width 14.6 % (11.0-16.0); White Blood Count 8.3 X10*3/uL (4.8-10.8)
[2024-09-25 00:10] LABS: MANUAL DIFF FLAG NO
[2024-09-25 03:51] VITALS: BP 108/69; PULSE 60; RESP 14; TEMP 36.6; O2SAT 99
[2024-09-25 05:33] VITALS: BP 117/79; PULSE 69; RESP 12; RESP 14; TEMP 36.7; O2SAT 98
== END 2024-09-25 05:34 | disposition home or self-care (01) ==
PROVIDERS: Physician Assistant Medical; Emergency Provider Emergency Medicine
DX: K62.5 Hemorrhage of anus and rectum (principal); R10.2 Pelvic and perineal pain; Z79.899 Other long term (current) drug therapy
CPT/HCPCS: 36415; 74177; 80048; 80076; 82272; 83690; 83735; 85025; 99284; Q9967

== ENCOUNTER 2024-11-23 21:52 | Emergency (ER) | payer MEDICARE, MEDICAID, SELFPAY ==
[2024-11-23 22:48] VITALS: BP 141/93; PULSE 110; RESP 20; TEMP 36.6; O2SAT 99; BMI 36.5
--- NOTE | 2024-11-23 23:26 | MHC.EDTECH ---
Patient brought into triage area,labs,sars/flu/rsv obtained and sent to lab,pt was unable to give a urine sample at this time.
[2024-11-23 23:27] LABS: Basophils Absolute Auto 0.1 X10*3/uL (0.0-0.2); Basophils Percent Auto 0.2 % (0-2); Eosinophils Absolute Auto 0.1 X10*3/uL (0.0-0.4); Eosinophils Percent Auto 0.3 % (0-4); Hematocrit 52.6 % (42.0-52.0); Imm Gran Abs Auto 0.09 X10*3/uL (0.00-0.03); Imm Gran Pct Auto 0.4 % (0.0-0.4); Lymphocytes Absolute Auto 1.2 X10*3/uL (1.2-4.9); Lymphocytes Percent Auto 5.9 % (20-40); MANUAL DIFF FLAG NO; Mean Corpuscular HGB Conc 32.3 g/dl (31.0-36.0); Mean Corpuscular Hemoglobin 26.7 pg (27.0-33.0); Mean Corpuscular Volume 82.7 fL (80.0-98.0); Mean Platelet Volume 10.4 fL (9.4-12.4); Monocytes Absolute Auto 1.4 X10*3/uL (0.1-1.2); Monocytes Percent Auto 6.8 % (2-11); Neutrophils Absolute Auto 17.4 x10*3/uL (2.0-8.3); Neutrophils Percent Auto 86.4 % (45-73); Platelet Count 258 X10*3/uL (160-400); Red Blood Count 6.36 X10*6/uL (4.60-5.80); Red Cell Distribution Width 13.6 % (11.0-16.0); White Blood Count 20.2 X10*3/uL (4.8-10.8)
[2024-11-23 23:43] LABS: Alanine Aminotransferase 53 U/L (0-40); Albumin Level 4.3 g/dL (3.5-5.0); Alkaline Phosphatase 62 U/L (39-117); Anion Gap 15 (12-20); Aspartate Amino Transferase 41 U/L (5-37); Bilirubin Direct 0.1 mg/dL (0.0-0.5); Bilirubin Total 0.4 mg/dL (0.0-1.0); Blood Urea Nitrogen 13 mg/dL (9-16); Calcium 9.5 mg/dL (8.4-10.2); Carbon Dioxide 19 mmol/L (22-29); Chloride 110 mmol/L (96-108); Creatinine Clr Calc Pharmacy 111.9; Estimated Glomerular Filt Rate > 60; Glucose Random 156 mg/dL (60-115); Lipase 7 U/L (8-78); Potassium 3.7 mmol/L (3.3-5.1); Sodium 140 mmol/L (135-145); Total Protein 8.9 g/dL (6.5-8.0)
--- NOTE | 2024-11-23 23:52 | MHC.EDTECH ---
Urine sample collected and sent to lab
[2024-11-24 00:04] LABS: Influenza A PCR NEGATIVE (Negative); Influenza B PCR NEGATIVE (Negative); Resp Syncy Virus RNA Qual PCR NEGATIVE (Negative); SARS COV2 PCR INHOUSE NEGATIVE (Negative)
[2024-11-24 00:07] LABS: Appearance Urine Clear; Color Urine Dark Yellow; Glucose Urine UA 100 mg/dL (Negative); Leukocyte Esterase Urine Negative (Negative); Nitrite Urine Negative (Negative); PH 5.5 (5.0-9.0); Specific Gravity - Urine >= 1.030 (1.005-1.025); UMIC TRIGGER UACC YES; Urine Blood Small (1+) (Negative); Urine Ketones 15 mg/dL (Negative); Urine Protein 100 (2+) mg/dL (Neg-Trace)
[2024-11-24 00:15] LABS: Bacteria Urine None Seen (None Seen); Granular Casts Urine Present; WBC Urine 0-5 /HPF (0-5)
[2024-11-24 00:56] VITALS: BP 104/75; PULSE 84; RESP 18; TEMP 37.2; O2SAT 99
[2024-11-24] MEDS: ondansetron HCL 4 MG/2 ML VIAL IVPUSH (02:04)
[2024-11-24] MEDS: Loperamide HCl 2 MG CAPSULE 4 MG PO (02:04)
[2024-11-24] MEDS: 0.9 % Sodium Chloride 1,000 ML 999 ML IV (02:04)
[2024-11-24 02:38] VITALS: BP 135/69; PULSE 78; RESP 18; TEMP 37.1; O2SAT 95
[2024-11-24 04:42] VITALS: BP 109/70; PULSE 77; RESP 18; O2SAT 95
--- NOTE | 2024-11-24 05:32 | ED_ITS ---
HPI - Nausea/Vomiting/Diarrhea General Chief complaint: Nausea/Vomiting/Diarrhea Stated complaint: ?food poisoning Time Seen by Provider: 11/24/24 01:17 Source: patient Mode of arrival: ambulatory Limitations: no limitations History of Present Illness ED Provider: HPI Narrative: Patient was healthy apparently last night had chicken and rice at home which was 2-day-old after eating that patient started vomiting and having diarrhea multiple times with diffuse abdominal cramps no fever no chills other family member sick Related Data Previous Rx's ?Medication ?Instructions ?Recorded doxycycline hyclate 100 mg capsule 100 mg PO BID 10 days #20 caps 07/09/21 acetaminophen 650 mg 650 mg PO Q8H PRN fever or pain 05/05/22 tablet,extended release #20 tabs ibuprofen 600 mg tablet 600 mg PO QID PRN fever or pain 05/05/22 #20 tabs cephalexin 500 mg capsule 500 mg PO QID 7 days #28 caps 06/26/22 doxycycline hyclate 100 mg capsule 100 mg PO BID 7 days #14 caps 06/26/22 naproxen 500 mg tablet 500 mg PO BID PRN pain 10 days #20 06/26/22 tabs cephalexin 500 mg capsule 500 mg PO TID 7 days #21 caps 02/06/23 doxycycline hyclate 100 mg tablet 100 mg PO Q12H 7 days #14 tabs 02/06/23 oxycodone-acetaminophen 5 mg-325 1 tab PO Q4H PRN pain #14 tabs 02/06/23 mg tablet (Percocet) docusate sodium 100 mg capsule 100 mg PO BID #60 caps 02/08/23 (Colace) oxycodone 5 mg tablet 5 mg PO Q6H PRN pain #10 tabs 02/08/23 doxycycline hyclate 100 mg capsule 100 mg PO BID 7 days #14 caps 02/09/23 benzonatate 100 mg capsule 100 mg PO BID PRN cough 7 days #14 09/06/23 caps naproxen 500 mg tablet 500 mg PO BID 7 days #14 tabs 09/06/23 ondansetron 4 mg disintegrating 4 mg PO Q8H PRN nausea and 02/26/24 tablet vomiting 4 days #7 tabs cephalexin 500 mg capsule 500 mg PO QID 7 days #28 caps 03/31/24 doxycycline hyclate 100 mg capsule 100 mg PO BID 7 days #14 caps 03/31/24 hydrocodone 5 mg-acetaminophen 325 1 tab PO Q6H PRN pain #10 tabs 03/31/24 mg tablet ondansetron 4 mg disintegrating 4 mg PO Q6-8H PRN nausea and 11/24/24 tablet vomiting #10 tabs Allergies Allergy/AdvReac Type Severity Reaction Status Date / Time Sulfa (Sulfonamide Allergy Severe SWELLING, Verified 11/23/24 22:52 Antibiotics) skin [SULFA (SULFONAMIDE blisters ANTIBIOTICS)] Review of Systems 2 Review of Systems: Yes all other systems are reviewed and are negative REPLACED BY [facility] Past Medical History Medical History Anxiety Depression Social History Social History Alcohol intake: former Smoked in Last 30 Days: No Advance Directives: No Advance Directives Information Provided: Yes Physical Exam 2 Vital Signs: Vital Signs: Last Vital Signs Temp 98.8 F 11/24/24 02:38 Pulse 77 11/24/24 04:42 Resp 18 11/24/24 04:42 BP 109/70 11/24/24 04:42 Pulse Ox 95 11/24/24 04:42 O2 Del Method Room Air 11/24/24 04:42 BMI result Body Mass Index 36.5 Appearance: Alert. Oriented X3. Mild distress. Nauseated Eyes: PERRLA, No Nystagmus ENT: Pharynx normal. Oral Mucosa moist Neck: Normal inspection. Neck supple. CVS: Normal heart rate and rhythm. Pulses normal. Respiratory: No respiratory distress. Equal air entry bilateral, no wheezing/rales/rhonchi Abdomen: Soft and nontender. Bowel sounds are present, no mass palpable, no CVA tenderness no focal tenderness or guarding Skin: Skin warm and dry. Normal skin color. Normal skin turgor. Extremities: No lower extremity edema. No calf tenderness Neuro: Oriented X 3. No motor deficit. Medications Administered Discontinued Medications Generic Name Dose Route Start Last Admin Trade Name Freq PRN Reason Stop Dose Admin Sodium Chloride 1,000 mls @ 999 mls/hr 11/24/24 01:24 11/24/24 03:08 Ns IV 11/24/24 02:24 Infused .Q1H1M ONE Infusion Loperamide HCl 4 mg 11/24/24 01:24 11/24/24 02:04 Loperamide Hcl 2 Mg Capsule PO 11/24/24 01:25 4 mg ONCE ONE Administration Ondansetron HCl 4 mg 11/24/24 01:24 11/24/24 02:04 Ondansetron Hcl 4 Mg/2 Ml Vial IVPUSH 11/24/24 01:25 4 mg ONCE ONE Administration Medical Decision Making Lab Data [facility] Lab Attestation statement: I reviewed the patient's lab results. 11/23/24 23:21 11/23/24 23:21 Labs: Lab Results 11/23/24 11/23/24 Range/Units 23:21 23:52 WBC 20.2 H (4.8-10.8) X10*3/uL RBC 6.36 H D (4.60-5.80) X10*6/uL Hgb 17.0 D (14.0-18.0) g/dl Hct 52.6 H D (42.0-52.0) % MCV 82.7 (80.0-98.0) fL MCH 26.7 L (27.0-33.0) pg MCHC 32.3 (31.0-36.0) g/dl RDW 13.6 (11.0-16.0) % Plt Count 258 (160-400) X10*3/uL MPV 10.4 (9.4-12.4) fL Immature Gran % (Auto) 0.4 (0.0-0.4) % Neut % (Auto) 86.4 H (45-73) % Lymph % (Auto) 5.9 L (20-40) % [place] % (Auto) 6.8 (2-11) % Eos % (Auto) 0.3 (0-4) % Baso % (Auto) 0.2 (0-2) % Lymph # (Auto) 1.2 (1.2-4.9) X10*3/uL [place] # (Auto) 1.4 H (0.1-1.2) X10*3/uL Eos # (Auto) 0.1 (0.0-0.4) X10*3/uL Baso # (Auto) 0.1 (0.0-0.2) X10*3/uL Abs Immat Gran (auto) 0.09 H (0.00-0.03) X10*3/uL Absolute Neuts (auto) 17.4 H (2.0-8.3) x10*3/uL Absolute Nucleated RBC 0.000 (0.0-0.012) X10*3/uL Nucleated RBC % (auto) 0.0 (0.0-0.2) /100WBC Sodium 140 (135-145) mmol/L Potassium 3.7 (3.3-5.1) mmol/L Chloride 110 H (96-108) mmol/L Carbon Dioxide 19 L (22-29) mmol/L Anion Gap 15 (12-20) BUN 13 (9-16) mg/dL Creatinine 1.07 (0.5-1.4) mg/dL Estim Creat Clear Calc 111.9 Estimated GFR > 60 Random Glucose 156 H (60-115) mg/dL Calcium 9.5 (8.4-10.2) mg/dL Total Bilirubin 0.4 (0.0-1.0) mg/dL Direct Bilirubin 0.1 (0.0-0.5) mg/dL AST 41 H (5-37) U/L ALT 53 H (0-40) U/L Alkaline Phosphatase 62 (39-117) U/L Total Protein 8.9 H (6.5-8.0) g/dL Albumin 4.3 (3.5-5.0) g/dL Lipase 7 L (8-78) U/L Urine Color Dark Yellow Urine Appearance Clear Urine pH 5.5 (5.0-9.0) Ur Specific [place] >= 1.030 H (1.005-1.025) Urine Protein 100 (2+) H (Neg-Trace) mg/dL Urine Glucose (UA) 100 H (Negative) mg/dL Urine Ketones 15 (Negative) mg/dL Urine Blood Small (1+) H (Negative) Urine Nitrite Negative (Negative) Ur Leukocyte Esterase Negative (Negative) Urine RBC 6-10 H (0-2) /HPF Urine WBC 0-5 (0-5) /HPF Ur Squamous Epith Cells 6-10 (0-2) /HPF Urine Bacteria None Seen (None Seen) Hyaline Casts 11-20 (0-2) /LPF Granular Casts Present Influenza Type A (PCR) NEGATIVE (Negative) Influenza Type B (PCR) NEGATIVE (Negative) RSV RNA Qual (PCR) NEGATIVE (Negative) SARS-CoV-2 RNA (RT-PCR) NEGATIVE (Negative) Discharge Plan Discharge Clinical Impression: Gastroenteritis Patient Disposition: Home, Self-Care Instructions: Gastroenteritis (ED) Additional Instructions: Drink plenty of fluids Medicine for nausea as prescribed Report to the ER if not better Prescriptions: New ondansetron 4 mg tablet,disintegrating 4 mg PO Q6-8H PRN (Reason: nausea and vomiting) Qty: 10 0RF No Action doxycycline hyclate 100 mg capsule 100 mg PO BID 10 Days Qty: 20 0RF ibuprofen 600 mg tablet 600 mg PO QID PRN (Reason: fever or pain) Qty: 20 0RF acetaminophen 650 mg tablet extended release 650 mg PO Q8H PRN (Reason: fever or pain) Qty: 20 0RF Rx Instructions: Alternate doses with ibuprofen cephalexin 500 mg capsule 500 mg PO QID 7 Days Qty: 28 0RF doxycycline hyclate 100 mg capsule 100 mg PO BID 7 Days Qty: 14 0RF naproxen 500 mg tablet 500 mg PO BID PRN (Reason: pain) 10 Days Qty: 20 0RF cephalexin 500 mg capsule 500 mg PO TID 7 Days Qty: 21 0RF doxycycline hyclate 100 mg tablet 100 mg PO Q12H 7 Days Qty: 14 0RF oxycodone-acetaminophen [Percocet] 5-325 mg tablet 1 tab PO Q4H PRN (Reason: pain) Qty: 14 0RF Rx Instructions: Partial Fill upon patient request. oxycodone 5 mg tablet 5 mg PO Q6H PRN (Reason: pain) Qty: 10 0RF Rx Instructions: Partial Fill upon patient request. docusate sodium [Colace] 100 mg capsule 100 mg PO BID Qty: 60 0RF benzonatate 100 mg capsule 100 mg PO BID PRN (Reason: cough) 7 Days Qty: 14 0RF naproxen 500 mg tablet 500 mg PO BID 7 Days Qty: 14 0RF doxycycline hyclate 100 mg capsule 100 mg PO BID 7 Days Qty: 14 0RF ondansetron 4 mg tablet,disintegrating 4 mg PO Q8H PRN (Reason: nausea and vomiting) 4 Days Qty: 7 0RF doxycycline hyclate 100 mg capsule 100 mg PO BID 7 Days Qty: 14 0RF hydrocodone-acetaminophen 5-325 mg tablet 1 tab PO Q6H PRN (Reason: pain) Qty: 10 0RF Rx Instructions: partial fill okay; Partial Fill upon patient request. cephalexin 500 mg capsule 500 mg PO QID 7 Days Qty: 28 0RF Print Language: Amharic
--- NOTE | 2024-11-24 05:39 | PC.NURSE ---
Reviewed discharge instructions with pt. pt verbalized understanding, no sign of distress, pt had a steady gait upon discharge.
[2024-11-24 05:41] VITALS: BP 109/70; PULSE 77; RESP 18; TEMP 37.2; O2SAT 95
== END 2024-11-24 05:43 | disposition home or self-care (01) ==
PROVIDERS: Emergency Provider Internal Medicine
DX: K52.9 Noninfective gastroenteritis and colitis, unspecified (principal); R11.2 Nausea with vomiting, unspecified; Z03.818 Encounter for observation for suspected exposure to other biological agents ruled out; Z79.899 Other long term (current) drug therapy
CPT/HCPCS: 0241U; 36415; 80053; 81001; 82248; 83690; 85025; 96361; 96374; 99284; 99285; J2405

== ENCOUNTER 2024-11-27 05:53 | Emergency (ER) | payer MEDICARE, MEDICAID, SELFPAY ==
--- NOTE | ~2024-11-27 | CT_ITS ---
EXAMINATION: CT ABDOMEN PELVIS WITH IV CONTRAST HISTORY: RLQ abd pain COMPARISON: Comparison is made with the prior examination dated 09/24/2024. TECHNIQUE: CT scan of the abdomen and pelvis was performed following administration of 85 mL Omnipaque 350 using standard departmental protocol. Coronal and sagittal reformatted images were generated and reviewed. Oral contrast material was not administered at the request of the referring physician. This CT exam was performed with one or more of the following dose reduction techniques: automated exposure control, adjustment of the mA and/or kV according to patient size, use of iterative reconstruction technique. DLP: 882 mGy-cm FINDINGS: LOWER CHEST: The visualized lung bases are clear. There is no pleural effusion. CARDIOVASCULATURE: The heart is normal in size. There is no pericardial effusion. LIVER: The liver is normal in size and contour. No liver mass is identified. The hepatic and portal veins are patent. GALLBLADDER / BILE DUCTS: The gallbladder is unremarkable. There is no intra or extrahepatic biliary ductal dilatation. SPLEEN: The spleen is normal in size. No focal splenic lesion is identified. PANCREAS: The pancreas is unremarkable in appearance. ADRENAL GLANDS: Within normal limits. KIDNEYS/RETROPERITONEUM: No renal calculi are identified. There is no hydronephrosis. No renal masses are identified. LYMPH NODES: No abdominal or pelvic lymphadenopathy. VASCULATURE: The abdominal aorta is normal in caliber. MESENTERY/PERITONEUM: No free fluid. No masses. There is no free intraperitoneal gas. STOMACH: The stomach is collapsed, limiting evaluation. SMALL BOWEL: The small bowel is normal in caliber. COLON: There are scattered diverticuli of the descending colon, without evidence of diverticulitis. APPENDIX: Normal. URINARY BLADDER/PELVIC ORGANS: The urinary bladder is unremarkable. The prostate is normal in size. BONES / SOFT TISSUES: There are postsurgical changes involving the anterior abdominal wall. The bones are intact. CT/CT abdomen pelvis w IV con IMPRESSION: Diverticulosis of the descending colon without evidence of diverticulitis. No acute abnormality is identified. A normal appendix is visualized. Electronically signed by: Melvin Petersen MD 11/27/2024 08:40 AM [facility]
[2024-11-27 05:56] VITALS: BP 123/84; PULSE 67; RESP 20; TEMP 36.7; O2SAT 100; BMI 35.7
[2024-11-27 06:08] LABS: MANUAL DIFF FLAG NO
[2024-11-27 06:10] LABS: Basophils Absolute Auto 0.1 X10*3/uL (0.0-0.2); Basophils Percent Auto 0.9 % (0-2); Eosinophils Absolute Auto 0.2 X10*3/uL (0.0-0.4); Eosinophils Percent Auto 2.4 % (0-4); Hematocrit 49.2 % (42.0-52.0); Hemoglobin 15.5 g/dl (14.0-18.0); Imm Gran Abs Auto 0.01 X10*3/uL (0.00-0.03); Imm Gran Pct Auto 0.1 % (0.0-0.4); Lymphocytes Absolute Auto 3.5 X10*3/uL (1.2-4.9); Mean Corpuscular HGB Conc 31.5 g/dl (31.0-36.0); Mean Corpuscular Hemoglobin 26.5 pg (27.0-33.0); Mean Corpuscular Volume 84.2 fL (80.0-98.0); Mean Platelet Volume 9.9 fL (9.4-12.4); Monocytes Absolute Auto 0.8 X10*3/uL (0.1-1.2); Monocytes Percent Auto 11.1 % (2-11); Neutrophils Absolute Auto 2.5 x10*3/uL (2.0-8.3); Neutrophils Percent Auto 35.5 % (45-73); Platelet Count 253 X10*3/uL (160-400); Red Blood Count 5.84 X10*6/uL (4.60-5.80); Red Cell Distribution Width 13.7 % (11.0-16.0)
[2024-11-27 06:20] VITALS: BP 121/76; PULSE 50; RESP 13; TEMP 36.6; O2SAT 100
--- NOTE | 2024-11-27 06:21 | MHC.EDTECH ---
pt changed over into hospital gown and placed on monitoring and evaluation advisor, blood drawn in triage and given urine cup for urine sample when pt voids.
[2024-11-27 06:32] LABS: Alanine Aminotransferase 68 U/L (0-40); Albumin Level 3.9 g/dL (3.5-5.0); Alkaline Phosphatase 52 U/L (39-117); Anion Gap 12 (12-20); Aspartate Amino Transferase 46 U/L (5-37); Bilirubin Total 0.3 mg/dL (0.0-1.0); Blood Urea Nitrogen 9 mg/dL (9-16); Calcium 8.7 mg/dL (8.4-10.2); Carbon Dioxide 29 mmol/L (22-29); Chloride 107 mmol/L (96-108); Creatinine Clr Calc Pharmacy 112.8; Estimated Glomerular Filt Rate > 60; Glucose Random 85 mg/dL (60-115); Lipase 10 U/L (8-78); Potassium 3.9 mmol/L (3.3-5.1); Sodium 144 mmol/L (135-145); Total Protein 7.7 g/dL (6.5-8.0)
[2024-11-27 07:37] LABS: Magnesium 2.3 mg/dL (1.6-2.6)
[2024-11-27] MEDS: Ketorolac Tromethamine 15 MG/ML VIAL IVPUSH (07:45)
[2024-11-27] MEDS: 0.9 % Sodium Chloride 1,000 ML 999 ML IV (07:47)
[2024-11-27 07:57] LABS: Appearance Urine Clear; Color Urine Yellow; Glucose Urine UA Negative (Negative); Leukocyte Esterase Urine Negative (Negative); Nitrite Urine Negative (Negative); PH 6.5 (5.0-9.0); Urine Blood Negative (Negative); Urine Ketones Negative (Negative); Urine Protein Negative (Neg-Trace)
--- NOTE | 2024-11-27 07:57 | ED_ITS ---
HPI - Abdominal Pain General Chief Complaint: Abdominal Pain Stated Complaint: stomach pain Time Seen by Provider: 11/27/24 06:35 Source: patient, RN notes reviewed and old records reviewed Mode of arrival: ambulatory History of Present Illness ED Provider: Gia Cobb PA-C HPI narrative: 39-year-old male no significant past medical history presenting to the ED complaining of RLQ abdominal pain since last night. Pain is constant. Denies associated symptoms including fever, chills, nausea, vomiting, dysuria/hematuria, flank pain. Related Data Previous Rx's ?Medication ?Instructions ?Recorded doxycycline hyclate 100 mg capsule 100 mg PO BID 10 days #20 caps 07/09/21 acetaminophen 650 mg 650 mg PO Q8H PRN fever or pain 05/05/22 tablet,extended release #20 tabs ibuprofen 600 mg tablet 600 mg PO QID PRN fever or pain 05/05/22 #20 tabs cephalexin 500 mg capsule 500 mg PO QID 7 days #28 caps 06/26/22 doxycycline hyclate 100 mg capsule 100 mg PO BID 7 days #14 caps 06/26/22 naproxen 500 mg tablet 500 mg PO BID PRN pain 10 days #20 06/26/22 tabs cephalexin 500 mg capsule 500 mg PO TID 7 days #21 caps 02/06/23 doxycycline hyclate 100 mg tablet 100 mg PO Q12H 7 days #14 tabs 02/06/23 oxycodone-acetaminophen 5 mg-325 1 tab PO Q4H PRN pain #14 tabs 02/06/23 mg tablet (Percocet) docusate sodium 100 mg capsule 100 mg PO BID #60 caps 02/08/23 (Colace) oxycodone 5 mg tablet 5 mg PO Q6H PRN pain #10 tabs 02/08/23 doxycycline hyclate 100 mg capsule 100 mg PO BID 7 days #14 caps 02/09/23 benzonatate 100 mg capsule 100 mg PO BID PRN cough 7 days #14 09/06/23 caps naproxen 500 mg tablet 500 mg PO BID 7 days #14 tabs 09/06/23 ondansetron 4 mg disintegrating 4 mg PO Q8H PRN nausea and 02/26/24 tablet vomiting 4 days #7 tabs cephalexin 500 mg capsule 500 mg PO QID 7 days #28 caps 03/31/24 doxycycline hyclate 100 mg capsule 100 mg PO BID 7 days #14 caps 03/31/24 hydrocodone 5 mg-acetaminophen 325 1 tab PO Q6H PRN pain #10 tabs 03/31/24 mg tablet ondansetron 4 mg disintegrating 4 mg PO Q6-8H PRN nausea and 11/24/24 tablet vomiting #10 tabs Allergies Allergy/AdvReac Type Severity Reaction Status Date / Time Sulfa (Sulfonamide Allergy Severe SWELLING, Verified 11/27/24 05:58 Antibiotics) skin [SULFA (SULFONAMIDE blisters ANTIBIOTICS)] Review of Systems Review of Systems Yes all other systems are reviewed and are negative Constitutional: Reports as per [facility] Past Medical History Attestation statement: The following information was validated with the patient. Source: old records reviewed Medical History Anxiety Depression Social History Social History Alcohol intake: former Physical Exam ED Vital Signs: Vital Signs - 24 hr 11/27/24 05:56 11/27/24 06:20 11/27/24 08:30 Temperature 98.1 F 97.8 F 98.7 F Pulse Rate 67 50 50 Respiratory Rate 20 13 16 Blood Pressure 123/84 121/76 103/62 Pulse Oximetry 100 100 99 Oxygen Delivery Method Room Air Room Air Room Air 11/27/24 09:14 Temperature 98.4 F Pulse Rate 49 L Respiratory Rate 14 Blood Pressure 104/64 Pulse Oximetry 100 Oxygen Delivery Method Room Air BMI result Body Mass Index 35.7 Const General: cooperative, healthy appearing and no acute distress Orientation/consciousness: patient oriented x3 Limitations: no limitations [facility] Head: Yes normal to inspection and Yes atraumatic Ears: hearing grossly normal bilaterally General nose exam: Normal external nose present Face and sinus: Yes normal facial exam Eyes General: appearance normal, both eyes and all related structures EOM: EOMs intact bilaterally Neck Neck: Yes normal visual inspection and Yes no meningeal signs Resp Effort & Inspection: normal respiratory effort and no respiratory distress Auscultation: clear to auscultation bilaterally Cardio Rate: regular rate Heart sounds: S1 normal heart sound present and S2 normal heart sound present GI Inspection: Yes normal to inspection Palpation (GI): Soft to palpation, Tenderness to palpation present (GI) in the RLQ; with no rebound tenderness, no guarding and not rigid General: Yes no CVA tenderness Back/Spine/Pelvis Back: no CVA tenderness Skin Rashes: no rashes Wounds: no wounds Neuro General: patient oriented x3, tone normal and no meningeal signs Cranial nerves: Yes CN's II-XII intact bilaterally Gait exam (Neuro): Normal gait present Extrem General: Yes normal to inspection Course Course Course Narrative: -no leukocytosis. Labs otherwise reassuring/at patient's baseline -UA negative CT abdomen pelvis w IV con IMPRESSION: Diverticulosis of the descending colon without evidence of diverticulitis. No acute abnormality is identified. A normal appendix is visualized. > results discussed with the patient. Denies testicular pain. Denies pain at present. Results discussed with patient including worrisome signs and symptoms and strict return precautions, and when to return to the emergency department. They verbalized understanding and feel safe for discharge at this time. Medical Decision Making Medical Decision Making [facility] Narrative: 39-year-old male no significant past medical history presenting to the ED complaining of RLQ abdominal pain since last night. Pain is constant. On exam vital signs stable, NAD, nontoxic appearing, abdomen soft with RLQ tenderness, no rebound or guarding, no CVAT. Concern for acute appendicitis vs colitis. Lower suspicion for diverticulitis, cholecystitis/lithiasis, pancreatitis or renal stone at this time. Plan: Labs, UA, CT AP, IVF, pain control, re-evaluate Please refer to course for remaining clinical decision making, interpretation of labs/imaging results, and discussions with consultants and/or family members. Differential Diagnosis Differential Diagnoses: The differential diagnosis associated with the presentation includes As above Admission/Observation Consideration of admission/observation: Escalation of care including admission/observation considered Lab Data [facility] Lab Attestation statement: I reviewed the patient's lab results. 11/27/24 06:00 11/27/24 06:00 Labs: Lab Results 11/27/24 11/27/24 Range/Units 06:00 07:49 WBC 7.0 (4.8-10.8) X10*3/uL RBC 5.84 H (4.60-5.80) X10*6/uL Hgb 15.5 (14.0-18.0) g/dl Hct 49.2 (42.0-52.0) % MCV 84.2 (80.0-98.0) fL MCH 26.5 L (27.0-33.0) pg MCHC 31.5 (31.0-36.0) g/dl RDW 13.7 (11.0-16.0) % Plt Count 253 (160-400) X10*3/uL MPV 9.9 (9.4-12.4) fL Immature Gran % (Auto) 0.1 (0.0-0.4) % Neut % (Auto) 35.5 L (45-73) % Lymph % (Auto) 50.0 H (20-40) % [place] % (Auto) 11.1 H (2-11) % Eos % (Auto) 2.4 (0-4) % Baso % (Auto) 0.9 (0-2) % Lymph # (Auto) 3.5 (1.2-4.9) X10*3/uL [place] # (Auto) 0.8 (0.1-1.2) X10*3/uL Eos # (Auto) 0.2 (0.0-0.4) X10*3/uL Baso # (Auto) 0.1 (0.0-0.2) X10*3/uL Abs Immat Gran (auto) 0.01 (0.00-0.03) X10*3/uL Absolute Neuts (auto) 2.5 (2.0-8.3) x10*3/uL Absolute Nucleated RBC 0.000 (0.0-0.012) X10*3/uL Nucleated RBC % (auto) 0.0 (0.0-0.2) /100WBC Sodium 144 (135-145) mmol/L Potassium 3.9 (3.3-5.1) mmol/L Chloride 107 (96-108) mmol/L Carbon Dioxide 29 (22-29) mmol/L Anion Gap 12 (12-20) BUN 9 (9-16) mg/dL Creatinine 1.05 (0.5-1.4) mg/dL Estim Creat Clear Calc 112.8 Estimated GFR > 60 Random Glucose 85 (60-115) mg/dL Calcium 8.7 D (8.4-10.2) mg/dL Magnesium 2.3 (1.6-2.6) mg/dL Total Bilirubin 0.3 (0.0-1.0) mg/dL AST 46 H (5-37) U/L ALT 68 H (0-40) U/L Alkaline Phosphatase 52 (39-117) U/L Total Protein 7.7 (6.5-8.0) g/dL Albumin 3.9 (3.5-5.0) g/dL Lipase 10 (8-78) U/L Urine Color Yellow Urine Appearance Clear Urine pH 6.5 (5.0-9.0) Ur Specific [place] 1.010 (1.005-1.025) Urine Protein Negative (Neg-Trace) mg/dL Urine Glucose (UA) Negative (Negative) mg/dL Urine Ketones Negative (Negative) mg/dL Urine Blood Negative (Negative) Urine Nitrite Negative (Negative) Ur Leukocyte Esterase Negative (Negative) Independent Interpretation I performed an independent interpretation of an: CT Scan Radiology Impression Discussion of test interpretation with radiology: I have reviewed the radiologist's reading. External Record Review External record reviewed: Inpatient record, Office record, Outpatient record, Prior outpatient labs, Prior outpatient radiology, Primary care record and Outside ED record Tests considered The following testing was considered but not selected: As above Prescription Management I considered prescription management with: Pain Medication and Antibiotic Chronic Conditions Patient?s care impacted by: Other Medications Administered Discontinued Medications Generic Name Dose Route Start Last Admin Trade Name Freq PRN Reason Stop Dose Admin Sodium Chloride 1,000 mls @ 999 mls/hr 11/27/24 07:15 11/27/24 07:47 Ns IV 11/27/24 08:15 999 mls/hr .Q1H1M SURAJ Administration Iohexol 100 ml 11/27/24 08:29 11/27/24 08:30 Iohexol 350 Mg/Ml 100 Ml Infus..Btl IV 11/27/24 08:30 85 ml ONCE ONE Administration Ketorolac Tromethamine 15 mg 11/27/24 07:11 11/27/24 07:45 Ketorolac Tromethamine 15 Mg/Ml Vial IVPUSH 11/27/24 07:12 15 mg ONCE ONE Administration Discharge Plan Discharge Clinical Impression: Abdominal pain, RLQ Patient Disposition: Home, Self-Care Instructions: Abdominal Pain (ED) Additional Instructions: Your blood work and CT scan are reassuring Please have close follow-up with your doctor as well as Gastroenterology Call to make an appointment If her pain persists or worsens/pain becomes unbearable, you have persistent nausea, vomiting, diarrhea or fever return to the ED Prescriptions: No Action doxycycline hyclate 100 mg capsule 100 mg PO BID 10 Days Qty: 20 0RF ibuprofen 600 mg tablet 600 mg PO QID PRN (Reason: fever or pain) Qty: 20 0RF acetaminophen 650 mg tablet extended release 650 mg PO Q8H PRN (Reason: fever or pain) Qty: 20 0RF Rx Instructions: Alternate doses with ibuprofen cephalexin 500 mg capsule 500 mg PO QID 7 Days Qty: 28 0RF doxycycline hyclate 100 mg capsule 100 mg PO BID 7 Days Qty: 14 0RF naproxen 500 mg tablet 500 mg PO BID PRN (Reason: pain) 10 Days Qty: 20 0RF cephalexin 500 mg capsule 500 mg PO TID 7 Days Qty: 21 0RF doxycycline hyclate 100 mg tablet 100 mg PO Q12H 7 Days Qty: 14 0RF oxycodone-acetaminophen [Percocet] 5-325 mg tablet 1 tab PO Q4H PRN (Reason: pain) Qty: 14 0RF Rx Instructions: Partial Fill upon patient request. oxycodone 5 mg tablet 5 mg PO Q6H PRN (Reason: pain) Qty: 10 0RF Rx Instructions: Partial Fill upon patient request. docusate sodium [Colace] 100 mg capsule 100 mg PO BID Qty: 60 0RF benzonatate 100 mg capsule 100 mg PO BID PRN (Reason: cough) 7 Days Qty: 14 0RF naproxen 500 mg tablet 500 mg PO BID 7 Days Qty: 14 0RF ondansetron 4 mg tablet,disintegrating 4 mg PO Q6-8H PRN (Reason: nausea and vomiting) Qty: 10 0RF doxycycline hyclate 100 mg capsule 100 mg PO BID 7 Days Qty: 14 0RF ondansetron 4 mg tablet,disintegrating 4 mg PO Q8H PRN (Reason: nausea and vomiting) 4 Days Qty: 7 0RF doxycycline hyclate 100 mg capsule 100 mg PO BID 7 Days Qty: 14 0RF hydrocodone-acetaminophen 5-325 mg tablet 1 tab PO Q6H PRN (Reason: pain) Qty: 10 0RF Rx Instructions: partial fill okay; Partial Fill upon patient request. cephalexin 500 mg capsule 500 mg PO QID 7 Days Qty: 28 0RF Referrals: [facility] Gastroenterology Services [Provider Group] Physician,None [Primary Care Provider] - Interventions: ED Discharge Assessment Last Done: 11/27/24 09:14 Discharge Date/Time: 11/27/24 09:15 Print Language: Tunisian
[2024-11-27 08:30] VITALS: BP 103/62; PULSE 50; RESP 16; TEMP 37.1; O2SAT 99
[2024-11-27] MEDS: iohexoL 350 MG/ML 100 ML INFUS..BTL IV (08:30)
[2024-11-27 09:14] VITALS: BP 104/64; PULSE 49; RESP 14; TEMP 36.9; O2SAT 100
== END 2024-11-27 09:15 | disposition home or self-care (01) ==
PROVIDERS: Physician Assistant; Emergency Provider Emergency Medicine
DX: R10.31 Right lower quadrant pain (principal); R10.2 Pelvic and perineal pain; Z79.899 Other long term (current) drug therapy
CPT/HCPCS: 36415; 74177; 80053; 81003; 83690; 83735; 85025; 99284; J1885; Q9967

== ENCOUNTER → 2024-11-27 07:10 | Outpatient (BNV) | payer MEDICARE, MEDICAID, SELFPAY | PROVIDERS: Emergency Provider Emergency Medicine; Visit Provider Radiology Diagnostic Radiology | DX: R10.31 Right lower quadrant pain (principal); K57.90 Diverticulosis of intestine, part unspecified, without perforation or abscess without bleeding | CPT/HCPCS: 74177 ==

== ENCOUNTER 2025-10-30 18:08 | Emergency (ER) | payer MEDICARE, MEDICAID, SELFPAY ==
[2025-10-30 18:10] VITALS: BP 138/78; PULSE 78; RESP 16; TEMP 37.1; O2SAT 95; BMI 39.3
--- NOTE | 2025-10-30 18:14 | ED_ITS ---
HPI - Skin/Abscess/Foreign Bdy General Chief complaint: Skin/Abscess/Foreign Body Stated complaint: ? warts on bottom of rt foot Time Seen by Provider: 10/30/25 18:20 Source: patient, family and RN notes reviewed Mode of arrival: ambulatory Limitations: no limitations History of Present Illness ED Provider: Radha Perry PA-C HPI narrative: Jose L presents with 2?3 wart-like lesions on the plantar surfaces of the feet, present for approximately one year. He has self-treated with OTC freeze-off products and wart patches without improvement; he reports that the lesions have worsened and are now painful, prompting today?s visit. He has not been evaluated by a psychologist experimental. He does not have a primary care provider. No prior professional treatment for the current lesions. Review of Systems: ? Skin: Positive for painful plantar lesions. No drainage, swelling, or surrounding erythema reported. Related Data Previous Rx's ?Medication ?Instructions ?Recorded doxycycline hyclate 100 mg capsule 100 mg PO BID 10 da ys #20 caps 07/09/21 acetaminophen 650 mg 650 mg PO Q8H PRN fever or p ain 05/05/22 tablet,extended release #20 tabs ibuprofen 600 mg tablet 600 mg PO QID PRN fever or p ain 05/05/22 #20 tabs cephalexin 500 mg capsule 500 mg PO QID 7 days #28 cap s 06/26/22 doxycycline hyclate 100 mg capsule 100 mg PO BID 7 day s #14 caps 06/26/22 naproxen 500 mg tablet 500 mg PO BID PRN pain 10 da ys #20 06/26/22 tabs cephalexin 500 mg capsule 500 mg PO TID 7 days #21 cap s 02/06/23 doxycycline hyclate 100 mg tablet 100 mg PO Q12H 7 day s #14 tabs 02/06/23 oxycodone-acetaminophen 5 mg-325 1 tab PO Q4H PRN pain #14 tabs 02/06/23 mg tablet (Percocet) docusate sodium 100 mg capsule 100 mg PO BID #60 caps 02/08/23 (Colace) oxycodone 5 mg tablet 5 mg PO Q6H PRN pain #10 tab s 02/08/23 doxycycline hyclate 100 mg capsule 100 mg PO BID 7 day s #14 caps 02/09/23 benzonatate 100 mg capsule 100 mg PO BID PRN cough 7 d ays #14 09/06/23 caps naproxen 500 mg tablet 500 mg PO BID 7 days #14 tab s 09/06/23 ondansetron 4 mg disintegrating 4 mg PO Q8H PRN nausea and 02/26/24 tablet vomiting 4 days #7 tabs cephalexin 500 mg capsule 500 mg PO QID 7 days #28 cap s 03/31/24 doxycycline hyclate 100 mg capsule 100 mg PO BID 7 day s #14 caps 03/31/24 hydrocodone 5 mg-acetaminophen 325 1 tab PO Q6H PRN pa in #10 tabs 03/31/24 mg tablet ondansetron 4 mg disintegrating 4 mg PO Q6-8H PRN naus ea and 11/24/24 tablet vomiting #10 tabs salicylic acid 28.5 % topical 1 appl topical DAILY #10 mL 10/30/25 film-forming soln extend release w/appl Allergies Allergy/AdvReac Type Severity Reaction Status Date / Time Sulfa (Sulfonamide Allergy Severe SWELLING, Verified 10/30/25 18:12 Antibiotics) (SULFA skin (SULFONAMIDE ANTIBIOTICS)) blisters Review of Systems Review of Systems: Yes all other systems are reviewed and are negative [facility] Past Medical History Attestation statement: The following information was validated with the patient. Source: old records reviewed, obtained from family and nursing notes reviewed Medical History Anxiety Depression Social History Social History Alcohol intake: former Advance Directives: No Advance Directives Information Provided: No Do you have a plan to hurt others: No Plan Physical Exam Exam: Exam: ? Skin (Feet): Two plantar lesions noted. ??? Lesion 1: Right first proximal phalanx, plantar surface, < dime-sized, no surrounding erythema or signs of infection. ??? Lesion 2: Plantar surface (exact location unspecified), black-centered, superficial, callused; no surrounding erythema. Cap refill < 3 secs, distal pulses 2+, no bony tenderness or erythema, nontender, no odor or d/c, DTRs intact Vital Signs: Vital Signs: Last Vital Signs Temp 98.7 F 10/30/25 18:29 Pulse 78 10/30/25 18:29 Resp 16 10/30/25 18:29 BP 138/78 10/30/25 18:29 Pulse Ox 95 10/30/25 18:29 O2 Del Method Room Air 10/30/25 18:29 BMI result Body Mass Index 39.3 Medical Decision Making Medical Decision Making [facility] Narrative: Jose L presents with chronic, painful plantar warts that have persisted for approximately one year and have not responded to [id number] treatments. On examination, there is no evidence of infection. Due to the duration, pain, and lack of improvement, a prescription topical medication was initiated, and referral to dermatology was made for possible excision. The patient was also advised to use cushioned insoles and monitor for signs of infection. This management plan follows guideline recommendations for recalcitrant plantar warts. Assessment & Plan Plantar warts causing pain and functional discomfort, refractory to OTC cryotherapy. Problem #1: Plantar warts (verruca plantaris) Assessment: Chronic (?1 yr) plantar warts, now painful. No current signs of infection. OTC cryotherapy ineffective. Plan: * Topical wart medication prescribed; patient advised that therapeutic effect may take >3 months. * Refer to dermatology ([place] location discussed) for definitive evaluation and probable complete excision. * Recommend cushioned shoe insoles to reduce pressure and discomfort. * Return to clinic or seek care sooner for any signs of infection (redness, swelling, drainage) or worsening pain. Differential Diagnosis Differential Diagnoses: The differential diagnosis associated with the presentation includes corn/callus plantar wart cellulitis Admission/Observation Consideration of admission/observation: Escalation of care including a dmission/observation considered Independent Historian Clinical information obtained from an independent historian. History obtained from or confirmed by: Spouse Prescription Management I considered prescription management with: Other Chronic Conditions Patient?s care impacted by: Other Social Determinants Patient?s care significantly limited by Social Determinants of Health including: Other Social Determinant of Health Discharge Plan Discharge Clinical Impression: Plantar wart of right foot Patient Disposition: Home, Self-Care Instructions: Plantar Wart (ED) Additional Instructions: Discharge Summary - Plantar Warts DISCHARGE SUMMARY Patient Name: Jose L Date of Visit: October 30, 2025 Provider: Radha Perry PA-C --- Reason for Visit Jose L came to the emergency room today with painful wart-like growths on the bottom of right foot. Summary of Visit Jose L has had 2?3 warts on the bottom of his feet for about one year. He tried [id number] freeze-off products and wart patches at home, but the warts got worse instead of better. The warts are now causing pain when he walks. On examination, we found two plantar warts?one on the right big toe area and ano ther on the bottom of the foot. Neither showed signs of infection (no redness, swelling, or drainage around the warts). Diagnosis Plantar warts (verruca plantaris) Treatment Provided Today - Prescription medication: We prescribed a topical wart medication to apply at home. This medication works slowly, and it may take 3 months or longer to see full results. It's important to be patient and keep using it as directed. - Referral to dermatology: We are referring you to a field support specialist ( psychologist experimental) They may recommend removing the warts completely if the topical medication doesn't work well enough. - Comfort measures: We recommend using cushioned shoe insoles to reduce pressure on the warts and make walking more comfortable. Follow-Up Instructions 1. Use your prescription medication daily as directed by your pharmacist or provider. 2. Cushion your feet: Use soft insoles or padding in your shoes to reduce pain while walking. 3. Watch for signs of infection and call the clinic or seek care if you notice: - Increased redness around the warts - Swelling - Drainage or pus - Worsening pain 4. Keep your dermatology appointment when scheduled. The specialist will evaluate your warts and discuss additional treatment options. 5. Be patient: Plantar warts can be stubborn and often take several months to resolve, even with treatment. When to Seek Care Sooner Contact the clinic or seek medical attention if you develop any signs of infection listed above, or if your pain becomes significantly worse. --- If you have any questions about your treatment or follow-up care, please contact our office. Prescriptions: New salicylic acid 28.5 % film-forming soln ER w/ appl 1 appl topical DAILY Qty: 10 3RF Rx Instructions: apply to entire wart site; allow to dry; repeat application No Action doxycycline hyclate 100 mg capsule 100 mg PO BID 10 Days Qty: 20 0RF ibuprofen 600 mg tablet 600 mg PO QID PRN (Reason: fever or pain) Qty: 20 0RF acetaminophen 650 mg tablet extended release 650 mg PO Q8H PRN (Reason: fever or pain) Qty: 20 0RF Rx Instructions: Alternate doses with ibuprofen cephalexin 500 mg capsule 500 mg PO QID 7 Days Qty: 28 0RF doxycycline hyclate 100 mg capsule 100 mg PO BID 7 Days Qty: 14 0RF naproxen 500 mg tablet 500 mg PO BID PRN (Reason: pain) 10 Days Qty: 20 0RF cephalexin 500 mg capsule 500 mg PO TID 7 Days Qty: 21 0RF doxycycline hyclate 100 mg tablet 100 mg PO Q12H 7 Days Qty: 14 0RF oxycodone-acetaminophen [Percocet] 5-325 mg tablet 1 tab PO Q4H PRN (Reason: pain) Qty: 14 0RF Rx Instructions: Partial Fill upon patient request. oxycodone 5 mg tablet 5 mg PO Q6H PRN (Reason: pain) Qty: 10 0RF Rx Instructions: Partial Fill upon patient request. docusate sodium [Colace] 100 mg capsule 100 mg PO BID Qty: 60 0RF benzonatate 100 mg capsule 100 mg PO BID PRN (Reason: cough) 7 Days Qty: 14 0RF naproxen 500 mg tablet 500 mg PO BID 7 Days Qty: 14 0RF ondansetron 4 mg tablet,disintegrating 4 mg PO Q6-8H PRN (Reason: nausea and vomiting) Qty: 10 0RF doxycycline hyclate 100 mg capsule 100 mg PO BID 7 Days Qty: 14 0RF ondansetron 4 mg tablet,disintegrating 4 mg PO Q8H PRN (Reason: nausea and vomiting) 4 Days Qty: 7 0RF doxycycline hyclate 100 mg capsule 100 mg PO BID 7 Days Qty: 14 0RF hydrocodone-acetaminophen 5-325 mg tablet 1 tab PO Q6H PRN (Reason: pain) Qty: 10 0RF Rx Instructions: partial fill okay; Partial Fill upon patient request. cephalexin 500 mg capsule 500 mg PO QID 7 Days Qty: 28 0RF Referrals: [facility] [Provider Group] Clinical Impression: Plantar wart of right foot Interventions: ED Discharge Assessment Last Done: 10/30/25 18:29 Discharge Date/Time: 10/30/25 18:30 Print Language: Montenegrin
--- OUTSIDE RECORDS SUMMARY | 2025-10-30 18:28 | XMS_ITS | Clinical Summary ---
Author Organization [employer] Address [address] [place] [address] Care Team Providers Care Lead Front Desk Agent Name Role Phone Unavailable Primary Care Provider Unavailabl e Social History Tobacco Use Types Packs/Day Years Used Date Smoking Tobacco: Never Assessed Sex and Gender Information Value Date Recorded Sex Assigned at Male 09/17/2022 10:17 AM EDT Legal Sex Male 10:17 AM EDT Gender Identity Male 09/17/2022 10:17 AM EDT Sexual Orientation Straight 09/17/2022 10 :17 AM EDT Plan of Treatment Health Maintenance Due Date Last Done Comments Depression Screening 1986 Lipid Panel 1986 Disability Screening 1986 Alcohol/Substance Use Screening 1998 Tobacco Screening 1998 Family Planning (PISQ) 2001 HPV Vaccines (1 - Male 3-dos e series) 2001 DTaP/Tdap/Td Vaccines (1 - Tdap) 2005 Hepatitis B Vaccines (1 of 3 - 19+ 3-dose series) 2005 COVID-19 Vaccine (3 - 2024-2 6 season) 2025 08/17/2021, 07/27/2021 Influenza Vaccine (#1) 2025 Zoster Vaccines (1 of 2) 2036 RSV Patients and Patients Aged 60 years or older (1 - 1-dose 75+ series) 2061 HIB Vaccines Aged Out No longer eligi ble based on patient's age to complete this topic Hepatitis A Vaccines Aged Out No long er eligible based on patient's age to complete this topic IPV Vaccines Aged Out No longer eligi ble based on patient's age to complete this topic Meningococcal B Vaccine Aged Out No l onger eligible based on patient's age to complete this topic Meningococcal Vaccine Aged Out No otilio marilyn eligible based on patient's age to complete this topic Pneumococcal Vaccine: Pediatrics (0 to 5 Years) and At-Risk Patients (6 to 49) Years Aged Out No longer eligible b ased on patient's age to complete this topic RSV under 20 months Aged Out No longe r eligible based on patient's age to complete this topic Rotavirus Vaccines Aged Out No longer eligible based on patient's age to complete this topic
[2025-10-30 18:29] VITALS: BP 138/78; PULSE 78; RESP 16; TEMP 37.1; O2SAT 95
== END 2025-10-30 18:30 | disposition home or self-care (01) ==
PROVIDERS: Emergency Provider Emergency Medicine Emergency Medical Services
DX: B07.0 Plantar wart (principal)
CPT/HCPCS: 99282; 99283